=== PATIENT | male | born 1935 | race Caucasian/White ===

== ENCOUNTER 2017-12-27 09:48 | Inpatient (IN) | payer MEDICARE, BC ==
[~2017-12-27] VITALS: Ht 182.9 cm; Wt 90.0 kg
[~2017-12-27 09:48] MED LIST: ASPI81 PO; ERYT400T4 PO; EZET10 PO; PRED50TA PO; ROSU40 PO
[2017-12-27 09:58] VITALS: BP 184/74; PULSE 97; RESP 18; O2SAT 98
--- NOTE | 2017-12-27 10:29 | PD ---
HPI Chief Complaint: Neuro Symptoms/ Deficits Time Seen by Provider: 09:58 Travel History International Travel<30 days: No Contact w/Intl Traveler<30days: No Traveled to known affect area: No History of Present Illness HPI The patient is 82-year-old male who presents to the emergency department via EMS for left-sided weakness. The patient states he awakened Wednesday morning with left-sided weakness, noticed that his left arm is weak and also noted weakness of the left lower extremity. The patient states he felt like the left side of his body was numb at that time. However, the patient notes the left leg is gotten significantly weaker and he is now unable to bear weight or ambulate on the left lower extremity. The patient does live at home, does not follow with a primary physician. The patient does have a remote history of coronary artery disease with previous CABG as well as hyperlipidemia, however, takes no current medications. Symptoms are moderate, started on Wednesday, there are no current alleviating factors. He denies any difficulty with speech or swallowing. He denies any associated chest pain, shortness breath, nausea, vomiting, or abdominal pain. PFSH Past Medical History Blood Disorders: No Heart Rhythm Problems: No Cancer: Yes (SKIN CA) Cardiovascular Problems: Yes High Cholesterol: Yes Chemotherapy: No Chest Pain: Yes Congestive Heart Failure: No Diabetes: Yes (BORDERLINE DIABETIC) Patient Takes Glucophage: No Diminished Hearing: No Endocrine: Yes Gastrointestinal Disorders: Yes (GI BLEED 03/2010) Genitourinary: No Hypertension: Yes Immune Disorder: No Implanted Vascular Access Dvce: Yes Musculoskeletal: No Neurologic: Yes Psychiatric: No Respiratory: Yes Immunizations Current: No Myocardial Infarction: No Radiation Therapy: No Ulcer: Yes Past Surgical History Abdominal Surgery: Yes (STOMACH ULCER CAUTERIZATION) AICD: No Cardiac Surgery: Yes (, TRIPLE BYPASS 2005) Ear Surgery: No Endocrine Surgery: No Eye Surgery: No Genitourinary Surgery: No Gynecologic Surgery: No Joint Replacement: No Neurologic Surgery: No Oral Surgery: No Pacemaker: No Thoracic Surgery: No Other Surgery: Yes (SKIN CA REMOVED.) Social History Alcohol Use: No (2 YEARS SOBER) Tobacco Use: Yes (1 PPD) Substance Use: No Allergies-Medications (Allergen,Severity, Reaction): Coded Allergies: No Known Allergies (Verified Adverse Reaction, Unknown, 12/27/17) Reported Meds & Prescriptions Reported Meds & Active Scripts Active No Active Prescriptions or Reported Medications Review of Systems Except as stated in HPI: all other systems reviewed are Neg HENT: No: Headaches, Lightheadedness Cardiovascular: No: Chest Pain or Discomfort Respiratory: No: Shortness of Breath Gastrointestinal: No: Nausea, Vomiting, Abdominal Pain Musculoskeletal: Positive: Weakness, No: Pain Neurologic: Positive: Weakness, Focal Abnormalities, Ataxia, Paresthesia, Sensory Disturbance, No: Headache, Change in Mentation, Slurred Speech Physical Exam Narrative GENERAL: Awake, alert, pleasant 82-year-old male who appears his stated age and is in no acute respiratory distress. SKIN: Focused skin assessment warm/dry. HEAD: Atraumatic. Normocephalic. EYES: Pupils equal and round. No scleral icterus. No injection or drainage. ENT: No nasal bleeding or discharge. Mucous membranes pink and moist. NECK: Trachea midline. No JVD. CARDIOVASCULAR: Regular, tachycardic with a heart rate of 100. RESPIRATORY: No accessory muscle use. Clear to auscultation. Breath sounds equal bilaterally. GASTROINTESTINAL: Abdomen soft, non-tender, nondistended. Hepatic and splenic margins not palpable. MUSCULOSKELETAL: No obvious deformities. No clubbing. No cyanosis. No edema. NEUROLOGICAL: Awake and alert. No obvious cranial nerve deficits. Mild drift to the left upper extremity and left lower extremity noted, however, does not fall to the bed. Decreased strength with extension of the left upper extremity as well as brush painter strength on the left. Decreased strength with flexion and extension of the left knee against resistance. Sensation is symmetric on the face, arms, legs bilaterally. Finger to nose is normal. Heel to branham normal. PSYCHIATRIC: Appropriate mood and affect; insight and judgment normal. Data Data Last Documented VS Vital Signs Date Time Temp Pulse Resp B/P (MAP) Pulse Ox O2 Delivery O2 Flow Rate FiO2 12/27/17 13:31 85 17 171/75 (107) 98 Nasal Cannula 1.00 Orders Orders Electrocardiogram (12/27/17 10:19) Prothrombin Time / Inr (Pt) (12/27/17 10:19) Act Partial Throm Time (Ptt) (12/27/17 10:19) Complete Blood Count With Diff (12/27/17 10:19) Comprehensive Metabolic Panel (12/27/17 10:19) Creatine Kinase (Cpk) (6/25/18 10:19) Troponin I (12/27/17 10:19) Ct Brain W/O Iv Contrast(Rout) (12/27/17 10:19) Chest, Single Ap (12/27/17 10:19) Ecg Monitoring (12/27/17 10:19) Iv Access Insert/Monitor (12/27/17 10:19) Oximetry (12/27/17 10:19) Sodium Chloride 0.9% Flush (Ns Flush) (12/27/17 10:30) Aspirin Chew (Aspirin Chew) (12/27/17 13:15) Admit Order (Ed Use Only) (12/27/17 13:42) Labs Laboratory Tests Test 12/27/17 10:23 White Blood Count 13.7 TH/MM3 Red Blood Count 4.28 MIL/MM3 Hemoglobin 12.2 GM/DL Hematocrit 36.5 % Mean Corpuscular Volume 85.2 FL Mean Corpuscular Hemoglobin 28.4 PG Mean Corpuscular Hemoglobin Concent 33.3 % Red Cell Distribution Width 18.6 % Platelet Count 323 TH/MM3 Mean Platelet Volume 9.7 FL Neutrophils (%) (Auto) 80.5 % Lymphocytes (%) (Auto) 12.4 % Monocytes (%) (Auto) 4.6 % Eosinophils (%) (Auto) 0.7 % Basophils (%) (Auto) 1.8 % Neutrophils # (Auto) 11.0 TH/MM3 Lymphocytes # (Auto) 1.7 TH/MM3 Monocytes # (Auto) 0.6 TH/MM3 Eosinophils # (Auto) 0.1 TH/MM3 Basophils # (Auto) 0.2 TH/MM3 CBC Comment AUTO DIFF Differential Comment AUTO DIFF CONFIRMED Platelet Estimate NORMAL Platelet Morphology Comment ENLARGED Ovalocytes 2+ Keratocytes OCC Prothrombin Time 10.7 SEC Prothromb Time International Ratio 1.1 RATIO Activated Partial Thromboplast Time 24.7 SEC Blood Urea Nitrogen 13 MG/DL Creatinine 1.21 MG/DL Random Glucose 191 MG/DL Total Protein 7.5 GM/DL Albumin 4.2 GM/DL Calcium Level 9.1 MG/DL Alkaline Phosphatase 90 U/L Aspartate Amino Transf (AST/SGOT) 13 U/L Alanine Aminotransferase (ALT/SGPT) 13 U/L Total Bilirubin 0.8 MG/DL Sodium Level 135 MEQ/L Potassium Level 3.8 MEQ/L Chloride Level 101 MEQ/L Carbon Dioxide Level 22.1 MEQ/L Anion Gap 12 MEQ/L Estimat Glomerular Filtration Rate 58 ML/MIN Total Creatine Kinase 66 U/L Troponin I LESS THAN 0.02 NG/ML [facility] Medical Decision Making Medical Screen Exam Complete: Yes Emergency Medical Condition: Yes Medical Record Reviewed: Yes Interpretation(s) EKG reveals normal sinus rhythm with a rate of 95. Nonspecific ST and T-wave changes. Laboratory Tests Test 12/27/17 10:23 White Blood Count 13.7 TH/MM3 Red Blood Count 4.28 MIL/MM3 Hemoglobin 12.2 GM/DL Hematocrit 36.5 % Mean Corpuscular Volume 85.2 FL Mean Corpuscular Hemoglobin 28.4 PG Mean Corpuscular Hemoglobin Concent 33.3 % Red Cell Distribution Width 18.6 % Platelet Count 323 TH/MM3 Mean Platelet Volume 9.7 FL Neutrophils (%) (Auto) 80.5 % Lymphocytes (%) (Auto) 12.4 % Monocytes (%) (Auto) 4.6 % Eosinophils (%) (Auto) 0.7 % Basophils (%) (Auto) 1.8 % Neutrophils # (Auto) 11.0 TH/MM3 Lymphocytes # (Auto) 1.7 TH/MM3 Monocytes # (Auto) 0.6 TH/MM3 Eosinophils # (Auto) 0.1 TH/MM3 Basophils # (Auto) 0.2 TH/MM3 CBC Comment AUTO DIFF Differential Comment AUTO DIFF CONFIRMED Platelet Estimate NORMAL Platelet Morphology Comment ENLARGED Ovalocytes 2+ Keratocytes OCC Prothrombin Time 10.7 SEC Prothromb Time International Ratio 1.1 RATIO Activated Partial Thromboplast Time 24.7 SEC Blood Urea Nitrogen 13 MG/DL Creatinine 1.21 MG/DL Random Glucose 191 MG/DL Total Protein 7.5 GM/DL Albumin 4.2 GM/DL Calcium Level 9.1 MG/DL Alkaline Phosphatase 90 U/L Aspartate Amino Transf (AST/SGOT) 13 U/L Alanine Aminotransferase (ALT/SGPT) 13 U/L Total Bilirubin 0.8 MG/DL Sodium Level 135 MEQ/L Potassium Level 3.8 MEQ/L Chloride Level 101 MEQ/L Carbon Dioxide Level 22.1 MEQ/L Anion Gap 12 MEQ/L Estimat Glomerular Filtration Rate 58 ML/MIN Total Creatine Kinase 66 U/L Troponin I LESS THAN 0.02 NG/ML Last Impressions Head CT 12/27/17 1019 Signed Impressions: CONCLUSION: 1. No acute intracranial abnormalities. 2. Chronic white matter ischemic changes. Chest X-Ray 12/27/17 1019 Signed Impressions: CONCLUSION: No acute disease Differential Diagnosis Differential diagnosis includes CVA, TIA, intracranial hemorrhage, hypertensive urgency, hypertensive emergency, intracranial tumor, peripheral neuropathy. Narrative Course IV was established, labs are drawn and sent, and the patient was placed on cardiac telemetry monitoring and continuous pulse oximetry monitoring. EKG was ordered and interpreted. CT of the brain was obtained. Chest x-ray was obtained. Chest x-ray is unremarkable. Laboratory evaluation is unremarkable. CT the brain reveals no acute intracranial hemorrhage. The patient was administered aspirin 162 mg orally. The patient has left-sided weakness with drift to left arm and left leg, most likely secondary to right MCA infarct, the patient may benefit from ultrasound of the carotids, echocardiogram, MRI, and neurology consultation. The on-call medical service was paged for admission. Physician Communication Physician Communication The on-call medical service was paged for admission. I discussed the patient with Dr. Holt. who agrees with admission. Diagnosis Primary Impression: CVA (cerebral vascular accident) Qualified Codes: I63.9 - Cerebral infarction, unspecified Admitting Information Admitting Physician Requests: Admit Scripts No Active Prescriptions or Reported Meds Condition: Stable Bridger Maciel MD Dec 27, 2017 10:29
[2017-12-27] MEDS ORDERED: SODIUM CHLORIDE 0.9% FLUSH 10 ML FLUSH IVF PRN (10:30)
[2017-12-27 10:32] LABS: BASOPHIL # 0.2 TH/MM3 (0-0.2); BASOPHIL % 1.8 % (0.0-2.0); EOSINOPHIL # 0.1 TH/MM3 (0-0.4); EOSINOPHIL % 0.7 % (0.0-4.0); HEMATOCRIT 36.5 % (39.0-51.0); HEMOGLOBIN 12.2 GM/DL (13.0-17.0); LYMPH % 12.4 % (9.0-44.0); LYMPHOCYTE # 1.7 TH/MM3 (1.0-4.8); MEAN CELL VOLUME 85.2 FL (80.0-100.0); MEAN CORPUSCULAR HEMOGLOBIN 28.4 PG (27.0-34.0); MEAN CORPUSCULAR HGB CONC 33.3 % (32.0-36.0); MEAN PLATELET VOLUME 9.7 FL (7.0-11.0); MONO % 4.6 % (0.0-8.0); MONOCYTE # 0.6 TH/MM3 (0-0.9); NEUT % 80.5 % (16.0-70.0); PLATELET COUNT 323 TH/MM3 (150-450); RED BLOOD COUNT 4.28 MIL/MM3 (4.50-5.90); RED CELL DISTRIBUTION WIDTH 18.6 % (11.6-17.2); WHITE BLOOD COUNT 13.7 TH/MM3 (4.0-11.0)
[2017-12-27 10:38] VITALS: O2SAT 98
[2017-12-27 10:44] LABS: INTERNATIONAL NORMALIZED RATIO 1.1 RATIO; PROTHROMBIN TIME - PATIENT 10.7 SEC (9.8-11.6)
[2017-12-27 10:48] LABS: ALBUMIN 4.2 GM/DL (3.4-5.0); AST (GOT) 13 U/L (15-37); BICARBONATE 22.1 MEQ/L (21.0-32.0); BLOOD UREA NITROGEN 13 MG/DL (7-18); CALCIUM 9.1 MG/DL (8.5-10.1); CHLORIDE 101 MEQ/L (98-107); CREATININE 1.21 MG/DL (0.60-1.30); GLOMERULAR FILTRATION RATE 58 ML/MIN (>89); GLUCOSE,RANDOM 191 MG/DL (74-106); SODIUM (NA) 135 MEQ/L (136-145)
[2017-12-27 10:49] LABS: ALT (GPT) 13 U/L (12-78)
[2017-12-27 10:53] LABS: ALKALINE PHOSPHATASE 90 U/L (45-117); TOTAL BILIRUBIN ADULT 0.8 MG/DL (0.2-1.0); TOTAL PROTEIN 7.5 GM/DL (6.4-8.2); TROPONIN I LESS THAN 0.02 NG/ML (0.02-0.05)
[2017-12-27 11:04] LABS: KERATOCYTES OCC (NORMAL); OVALOCYTES 2+ (NORMAL)
--- NOTE | 2017-12-27 11:18 | RADRPT ---
EXAM DATE: 12/27/2017 10:57 AM EDT AGE/SEX: 82 years / Male INDICATIONS: Syncope. Possible stroke. CLINICAL DATA: This is the patient's initial encounter. Patient reports that signs and symptoms have been present for 1 day and indicates a pain score of 0/10. MEDICAL/SURGICAL HISTORY: Hypertension. CABG. COMPARISON: No prior exams available for comparison. FINDINGS: Focal opacity in the right cardiophrenic angle is likely epicardial fat. The lungs are otherwise symm etrically aerated and grossly clear. No significant effusion suspected. Heart size and pulmonary vasc ularity are normal. There are healed rib and clavicle fractures on the right. Sternotomy wires presen t. CONCLUSION: No acute disease Electronically signed by: Branden Guidry MD 12/27/2017 11:17 AM EDT
--- NOTE | 2017-12-27 12:20 | RADRPT ---
EXAM DATE: 12/27/2017 12:17 PM EDT AGE/SEX: 82 years / Male INDICATIONS: Left sided weakness. CLINICAL DATA: This is the patient's initial encounter. Patient reports that signs and symptoms have been present for 3 days and indicates a pain score of 2/10. MEDICAL/SURGICAL HISTORY: Hypertension. Skin cancer. CABG. RADIATION DOSE: 56.35 CTDI (mGy) COMPARISON: No prior exams available for comparison. TECHNIQUE: CT of the head without contrast. Using automated exposure control and adjustment of the mA and/or kV according to patient size, radiation dose was kept as low as reasonably achievable to ob tain optimal diagnostic quality images. DICOM format image data is available electronically for revi ew and comparison. FINDINGS: Cerebrum: The ventricles are normal for age. No evidence of midline shift, mass lesion, hemorrhage or acute infarction. No extraaxial fluid collections are seen. Posterior Fossa: The cerebellum and brainstem are intact. The 4th ventricle is midline. The cerebe llopontine angle is unremarkable. Extracranial: The visualized portion of the orbits is intact. Skull: The calvaria is intact. No evidence of skull fracture. CONCLUSION: 1. No acute intracranial abnormalities. 2. Chronic white matter ischemic changes. Electronically signed by: Bridger Sandhu MD 12/27/2017 12:19 PM EDT
[2017-12-27] MEDS ORDERED: ASPIRIN 81 MG CHEW TAB CHEW ONE (13:15)
[2017-12-27 13:31] VITALS: BP 171/75; PULSE 85; RESP 17; O2SAT 95; O2SAT 98
[2017-12-27] MEDS ORDERED: SODIUM CHLOR 0.9% 1000 ML INJ 1,000 ML IV SCH (13:51)
[2017-12-27] MEDS ORDERED: GLUCAGON 1 MG/ML VIAL OTHER PRN (14:00)
[2017-12-27] MEDS ORDERED: ENALAPRILAT 1.25 MG/ML VIAL IV PUSH PRN (14:00)
[2017-12-27] MEDS ORDERED: DEXTROSE 50% IN WATER 50 ML VIAL(D50) IV PUSH PRN (14:00)
[2017-12-27 14:03] VITALS: O2SAT 100
--- NOTE | 2017-12-27 14:43 | HHI.HP ---
[facility] No Primary Care Physician Admission Diagnosis CVA, left-sided weakness Diagnoses: (1) CVA (cerebral vascular accident) Chief Complaint: Left-sided weakness Travel History International Travel<30 Days: No Contact w/Intl Traveler <30 Da: No Traveled to Known Affected Are: No History of Present Illness Patient is an 82-year-old male who presented to the emergency department with complaint of left-sided weakness that started 2 days ago. He states that he woke up on Wednesday morning and had difficulty using his left arm and left leg due to weakness. He states that it has worsened over the past couple days and this morning he tried to walk with crutches but fell. He did not hit his head when he fell. There was no loss of consciousness. He feels that the strength has gotten a little better in the left upper extremity, but he still feels that the left arm is uncoordinated. He denies headache or vision changes. Denies chest pain or dyspnea. Past Family Social History Past Medical History Coronary artery disease Hypertension Hyperlipidemia Diabetes mellitus type 2 History of skin cancer Past Surgical History CABG 2005 Reported Medications None Allergies: Coded Allergies: No Known Allergies (Verified Adverse Reaction, Unknown, 12/27/17) Family History Mother had bile duct cancer Father had cerebral hemorrhage Social History The patient has smoked cigarettes 60+ years. Currently cut down to one half pack per day. Quit drinking alcohol 2 years ago. Denies illicit drug use. Physical Exam Vital Signs Vital Signs Date Time Temp Pulse Resp B/P (MAP) Pulse Ox O2 Delivery O2 Flow Rate FiO2 12/27/17 14:03 100 21 12/27/17 13:31 85 17 171/75 (107) 98 Nasal Cannula 1.00 12/27/17 10:38 98 Room Air 12/27/17 09:58 97 18 184/74 (110) 98 Physical Exam GENERAL: Elderly male in no acute distress. HEENT: Normocephalic, atraumatic. Pupils equal, round and reactive. Extraocular movements intact. No scleral icterus. No injection or drainage. Oropharynx is clear. Mucous membranes are moist. CARDIOVASCULAR: Regular rate and rhythm without murmurs, gallops, or rubs. RESPIRATORY: Clear to auscultation. No wheezes, rales, or rhonchi. Breathing is non-labored. GASTROINTESTINAL: Abdomen soft, non-tender, nondistended. EXTREMITIES: No lower extremity edema. No calf tenderness. PSYCH: Alert and oriented x 3. NEURO: Cranial nerves II through XII are grossly intact. Patient has weakness of the left upper extremity and left lower extremity. Strength is 5/5 on the right and 4/5 on the left. Laboratory Laboratory Tests Test 12/27/17 10:23 White Blood Count 13.7 Red Blood Count 4.28 Hemoglobin 12.2 Hematocrit 36.5 Mean Corpuscular Volume 85.2 Mean Corpuscular Hemoglobin 28.4 Mean Corpuscular Hemoglobin Concent 33.3 Red Cell Distribution Width 18.6 Platelet Count 323 Mean Platelet Volume 9.7 Neutrophils (%) (Auto) 80.5 Lymphocytes (%) (Auto) 12.4 Monocytes (%) (Auto) 4.6 Eosinophils (%) (Auto) 0.7 Basophils (%) (Auto) 1.8 Neutrophils # (Auto) 11.0 Lymphocytes # (Auto) 1.7 Monocytes # (Auto) 0.6 Eosinophils # (Auto) 0.1 Basophils # (Auto) 0.2 CBC Comment AUTO DIFF Differential Comment AUTO DIFF CONFIRMED Platelet Estimate NORMAL Platelet Morphology Comment ENLARGED Ovalocytes 2+ Keratocytes OCC Prothrombin Time 10.7 Prothromb Time International Ratio 1.1 Activated Partial Thromboplast Time 24.7 Blood Urea Nitrogen 13 Creatinine 1.21 Random Glucose 191 Total Protein 7.5 Albumin 4.2 Calcium Level 9.1 Alkaline Phosphatase 90 Aspartate Amino Transf (AST/SGOT) 13 Alanine Aminotransferase (ALT/SGPT) 13 Total Bilirubin 0.8 Sodium Level 135 Potassium Level 3.8 Chloride Level 101 Carbon Dioxide Level 22.1 Anion Gap 12 Estimat Glomerular Filtration Rate 58 Total Creatine Kinase 66 Troponin I LESS THAN 0.02 Result Diagram: 12/27/17 1023 12/27/17 1023 Imaging Last Impressions Head CT 12/27/17 1019 Signed Impressions: CONCLUSION: 1. No acute intracranial abnormalities. 2. Chronic white matter ischemic changes. Chest X-Ray 12/27/17 1019 Signed Impressions: CONCLUSION: No acute disease Caprini VTE Risk Assessment Caprini VTE Risk Assessment: Mod/High Risk (score >= 2) Caprini Risk Assessment Model Point Value = 1 Point Value = 2 Point Value = 3 Point Value = 5 Age 41-60 Minor surgery BMI > 25 kg/m2 Swollen legs Varicose veins or History of unexplained or recurrent spontaneous Oral contraceptives or hormone replacement Sepsis (< 1 month) Serious lung disease, including pneumonia (< 1 month) Abnormal pulmonary function Acute myocardial infarction Congestive heart failure (< 1 month) History of inflammatory bowel disease Medical patient at bed rest Age 61-74 Arthroscopic surgery Major open surgery (> 45 min) Laparoscopic surgery (> 45 min) Malignancy Confined to bed (> 72 hours) Immobilizing plaster cast Central venous access Age >= 75 History of VTE Family history of VTE Factor V Leiden Prothrombin [id number] Lupus anticoagulant Anticardiolipin antibodies Elevated serum homocysteine Heparin-induced thrombocytopenia Other congenital or acquired thrombophilia Stroke (< 1 month) Elective arthroplasty Hip, pelvis, or leg fracture Acute spinal cord injury (< 1 month) Prophylaxis Regimen Total Risk Factor Score Risk Level Prophylaxis Regimen 0-1 Low Early ambulation 2 Moderate Order ONE of the following: *Sequential Compression Device (SCD) *Heparin 5000 units SQ BID 3-4 Higher Order ONE of the following medications: *Heparin 5000 units SQ TID *Enoxaparin/Lovenox 40 mg SQ daily (WT < 150 kg, CrCl > 30 mL/min) *Enoxaparin/Lovenox 30 mg SQ daily (WT < 150 kg, CrCl > 10-29 mL/min) *Enoxaparin/Lovenox 30 mg SQ BID (WT < 150 kg, CrCl > 30 mL/min) AND/OR *Sequential Compression Device (SCD) 5 or more Highest Order ONE of the following medications: *Heparin 5000 units SQ TID (Preferred with Epidurals) *Enoxaparin/Lovenox 40 mg SQ daily (WT < 150 kg, CrCl > 30 mL/min) *Enoxaparin/Lovenox 30 mg SQ daily (WT < 150 kg, CrCl > 10-29 mL/min) *Enoxaparin/Lovenox 30 mg SQ BID (WT < 150 kg, CrCl > 30 mL/min) AND *Sequential Compression Device (SCD) Assessment and Plan Assessment and Plan 1. CVA: CT of the head is negative. Check MRI/MRA of the brain. Carotid artery ultrasound and 2D echocardiogram have been ordered. Consult neurology. PT/OT/ST. Allow permissive hypertension. Start statin. Continue aspirin. 2. Coronary artery disease: Status post CABG 12 years ago. Patient denies chest pain. He has not been taking any medications for the past few years. Start statin. Monitor on telemetry. 3. Hyperglycemia: Patient has reported history of diet-controlled diabetes, but has not had his blood sugar checked in many years. Monitor Accu-Cheks and cover with sliding scale insulin. Hemoglobin A1c is pending. 4. Leukocytosis: Likely stress reaction. No other signs of infection at this time. 5. DVT prophylaxis: Nelly, PRIYANKA herbert. Problem Qualifiers (1) CVA (cerebral vascular accident): Qualified Codes: I63.9 - Cerebral infarction, unspecified John Holt MD Dec 27, 2017 14:42
[2017-12-27 15:58] LABS: HEMOGLOBIN A1C 5.8 % (4.3-6.0)
[2017-12-27 16:43] VITALS: BP 171/72; PULSE 77; RESP 18; TEMP 98.6; O2SAT 99
[2017-12-27] MEDS: ASPIRIN EC 325 MG TABEC PO SCH (17:15)
[2017-12-27] MEDS: INSULIN ASPART SUPPLEMENTAL SCALE SQ SCH ×2 (17:30→21:00)
--- NOTE | 2017-12-27 17:57 | MB ---
cc: Adiel Joy MD DATE: 12/27/2017 HISTORY OF PRESENT ILLNESS: This is an 82-year-old right-handed man with a history of hypertension, hypercholesterolemia, [place], CABG in 2004, peptic ulcer disease, . He does not take an aspirin or really any medications. On Wednesday, he woke up, he was clumsy in his left arm and weak in his left leg. No chest pain, palpitations or headache. REVIEW OF SYSTEMS: He denies any diabetes, although his sugar evidently was 190 when he came in. He denied any history of AFib, Coumadin, renal, hepatic, pulmonary disease, although he is a long time smoker, thyroid disease, lupus, cancer, seizure, prior stroke. No vision loss in the right eye. No facial droop. SOCIAL HISTORY: He is a smoker and I have asked him to quit. Not a drinker, lives by himself. FAMILY HISTORY: Negative for cancer, seizure, stroke. ALLERGIES: NO KNOWN DRUG ALLERGIES. MEDICATIONS: He does not take any medications, including an aspirin. PHYSICAL EXAMINATION: NECK: There were no carotid bruits. HEART: Regular rhythm. I did not detect a murmur. NEUROLOGIC: Pupils are equal. Visual lion are full. Extraocular movements intact, without nystagmus. Face is symmetric with normal sensation. Tongue was midline. EKG showed sinus rhythm. There is a positive left drift. He had normal strength in upper and lower extremities bilaterally except the left lower extremity, iliopsoas was about a 5-/5. Toes were equivocal on the left, downgoing on the right. DTRs are trace throughout. Pinprick is intact throughout bilaterally upper and lower extremities and face. He has ataxia on left [id number], not on the right. Speech is fluent. He is not aphasic. LABORATORY DATA: White count is 13.7, otherwise CBC is generally unremarkable. Basic metabolic profile was normal. Glucose 191. LFTs normal. Troponin negative. Albumin 4.2. Coags normal. IMAGING: CAT scan of the brain read as negative. Chest x-ray, no acute disease. IMPRESSION: Right infarct, some ataxia, probably a deeper infarct, although pontine infarct could not be ruled out. PLAN: We will check an MRI of the brain, MRA capitan grande band of Rodriguez and neck. This has been going on 48 hours, been fairly stable. We will start him on aspirin 325 a day, some IV hydration, do a stroke workup. MD JUAN A Haddad/ALESSIA , 05:19 PM , 05:56 PM
[2017-12-27] MEDS ORDERED: GADODIAMIDE PF 287 MG/ML 20 ML VIAL (for RAD MRI) IV PUSH ONE (18:31)
--- NOTE | 2017-12-27 18:45 | RADRPT ---
EXAM DATE: 12/27/2017 6:24 PM EDT AGE/SEX: 82 years / Male INDICATIONS: . Left sided numbness. CLINICAL DATA: This is the patient's initial encounter. Patient reports that signs and symptoms have been present for 2 days and indicates a pain score of 0/10. MEDICAL/SURGICAL HISTORY: None. CABG. COMPARISON: No prior exams available for comparison. TECHNIQUE: 3D [id number] MRA was performed. Source images, multiplanar STS MIP, and 3D volum e MIP reconstructions were reviewed. FINDINGS: Anterior circulation: There is mild irregularity of the internal carotid arteries particularly within the cavernous segments, likely representing atherosclerotic disease. No high-grade stenosis is ident ified. A1 segments are symmetric. More distal anterior cerebral arteries are symmetric. There is irre gular luminal narrowing in the proximal left middle cerebral artery likely related to atherosclerotic disease given the appearance. The more peripheral middle cerebral artery branches demonstrate symmet samir flow related enhancement. Posterior circulation: The visualized vertebral arteries are codominant. Basilar artery demonstrates no acute abnormality. There is abrupt cut off of flow related enhancement in the proximal right poste rior cerebral artery adjacent to the cerebral peduncle. Left posterior cerebral artery branches withi n normal limits. CONCLUSION: 1. There is a high-grade stenosis suspected in the right proximal posterior cerebral artery. 2. Moderate luminal irregularity in the proximal left middle cerebral artery most likely related to atherosclerotic disease. There is also likely atherosclerotic change with mild luminal narrowing invo lving the intracranial internal carotid arteries. Electronically signed by: Branden Hickman MD 12/27/2017 6:44 PM EDT
--- NOTE | 2017-12-27 18:59 | RADRPT ---
EXAM DATE: 12/27/2017 6:29 PM EDT AGE/SEX: 82 years / Male INDICATIONS: CVA. Left sided numbness. CLINICAL DATA: This is the patient's initial encounter. Patient reports that signs and symptoms have been present for 2 days and indicates a pain score of 0/10. MEDICAL/SURGICAL HISTORY: None. CABG. COMPARISON: [facility] – [place], CT BRAIN W/O CONTRAST, 12/27/2017. . TECHNIQUE: Multiplanar, multisequence examination of the brain was performed without and with 20 ml O mniscan (gadodiamide) contrast as a single exam dose. FINDINGS: Cerebrum: There is mild generalized atrophy with ventricular size within normal limits given the degr ee of atrophy. No midline shift, mass lesion, or hemorrhage. There is a focal area of restricted dif fusion associated with increased FLAIR signal in the right periventricular white matter. No extraaxia l fluid collections are seen. The pituitary gland and suprasellar cistern are normal in configuratio n. White Matter: There is moderate periventricular and subcortical white matter signal change bilateral ly. Posterior Fossa: The cerebellum and brainstem demonstrate no acute abnormality. The 4th ventricle is midline. The cerebellopontine angle is within normal limits. The cerebellar tonsils are normal in p osition. Diffusion Imaging: No areas of restricted diffusion are seen. Extracranial: The visualized sinuses are clear. CONCLUSION: 1. There is a focal area of restricted diffusion representing recent ischemia in the right frontal p eriventricular white matter. 2. Chronic findings include generalized atrophy and moderate severity periventricular white matter s ignal change characteristic of chronic microvascular ischemia. Electronically signed by: Branden Hickman MD 12/27/2017 6:57 PM EDT
[2017-12-27 19:28] LABS: CHOLESTEROL/ HDL RATIO 8.94 RATIO; FOLATE 4.9 NG/ML (3.1-17.5); FREE T4 1.08 NG/DL (0.76-1.46); HDL CHOLESTEROL 22.7 MG/DL (40.0-60.0)
[2017-12-27] MEDS ORDERED: ATORVASTATIN 10 MG TAB PO SCH (21:00)
[2017-12-27 21:45] VITALS: PULSE 72
[2017-12-27] MEDS: SODIUM CHLOR 0.9% 1000 ML INJ 1,000 ML IV SCH (22:03)
--- NOTE | 2017-12-27 22:37 | EKG ---
Date Performed: 12/27/2017 Time Performed: 10:02:17 PTAGE: 82 years EKG: Sinus rhythm NONSPECIFIC ST & T-WAVE ABNORMALITY BORDERLINE ECG Compared to PREVIOUS TRACING , ST/T wave changes are now noted but non-specific DOCTOR: Bill Anton Interpretating Date/Time 12/27/2017 22:35:25
--- NOTE | 2017-12-27 23:15 | RADRPT ---
EXAM DATE: 12/27/2017 6:55 PM EDT AGE/SEX: 82 years / Male INDICATIONS: Stroke. CLINICAL DATA: This is the patient's initial encounter. Patient reports that signs and symptoms have been present for 2 days and indicates a pain score of 0/10. MEDICAL/SURGICAL HISTORY: None. CABG. COMPARISON: No prior exams available for comparison. TECHNIQUE: 20 ml Omniscan (gadodiamide) contrast infused MRA (single exam dose) of the extracranial circulation was performed using a neurovascular coil. Postprocessing was performed, including rotat ing sub-volume maximum intensity projections of each carotid artery, rotating full-volume maximum int ensity projections of both carotid arteries, sagittal and coronal sliding thin-slab reformations of e ach carotid artery, and left oblique sliding thin-slab reformation through the aortic arch to include the origin of the arch branch vessels. FINDINGS: Aortic Arch : There is a three-vessel origin of the great vessels from the aorta. No evidence of o stial narrowing. Right Carotid : The common carotid artery demonstrates mild luminal irregularity likely related to a therosclerotic disease. However, there is no significant stenosis. Proximal aspect of the internal ca rotid artery demonstrates mild luminal irregularity likely related to atherosclerotic disease but no significant stenosis is present. External carotid artery is within normal limits. Left Carotid : The common carotid artery demonstrates no significant luminal narrowing. In the carot id bulb and proximal internal carotid artery there is focal narrowing measuring at least 60%. More di stally there is no significant narrowing present. Vertebrals : Vertebral arteries are codominant. There is likely a focal high-grade stenosis at the o rigin of the right vertebral artery. More distal vertebral arteries have a normal appearance. CONCLUSION: 1. Focal stenosis in the carotid bulb and proximal internal carotid artery on the left with at least 60% stenosis. Consider carotid CTA for more accurate assessment. 2. Mild atherosclerotic disease in the right carotid bulb but no significant stenosis is present. 3. Suspected focal high-grade narrowing at the origin of the right vertebral artery. Percent stenosis is calculated using the diameter of the stenotic region over the diameter of the nor mal distal internal carotid artery Electronically signed by: Branden Hickman MD 12/27/2017 11:14 PM EDT
[2017-12-28] VITALS (10 sets, daily range): BP systolic 122–164; BP diastolic 59–74; PULSE 59–100; RESP 16–19; TEMP 96.2–98.6; O2SAT 96–100
[2017-12-28] MEDS: SODIUM CHLOR 0.9% 1000 ML INJ 1,000 ML IV SCH ×4 (06:34→18:41)
--- NOTE | 2017-12-28 07:52 | HHI.PR ---
Subjective Remarks sr Objective Vital Signs Date Time Temp Pulse Resp B/P (MAP) Pulse Ox O2 Delivery O2 Flow Rate FiO2 12/28/17 06:25 97.6 65 17 151/69 (96) 100 12/28/17 01:00 96.2 59 19 143/74 (97) 99 12/27/17 21:45 72 12/27/17 16:43 98.6 77 18 171/72 (105) 99 12/27/17 16:40 12/27/17 14:03 100 21 12/27/17 13:31 85 17 171/75 (107) 98 Nasal Cannula 1.00 12/27/17 10:38 98 Room Air 12/27/17 09:58 97 18 184/74 (110) 98 I/O 12/27/17 12/27/17 12/27/17 12/28/17 12/28/17 12/28/17 07:00 15:00 23:00 07:00 15:00 23:00 Intake Total 555 ml Output Total 250 ml Balance 305 ml Intake IV Total 555 ml Output Urine Total 250 ml Result Diagram: 12/27/17 1023 12/27/17 1023 Objective Remarks awake alert 5/5 lue lle still ataxic lue Assessment and Plan Assessment and Plan imp sr mra left mca dz and left ica about 60% check cta r deep lacunar type cva fu echo holter asa and statin ldl inc Adiel Izquierdo MD Dec 28, 2017 07:52
[2017-12-28] MEDS: ASPIRIN EC 325 MG TABEC PO SCH (08:26)
[2017-12-28] MEDS: INSULIN ASPART SUPPLEMENTAL SCALE SQ SCH ×4 (08:26→21:00)
[2017-12-28] MEDS ORDERED: ASPIRIN 81 MG CHEW TAB PO SCH (09:00)
--- NOTE | 2017-12-28 11:02 | HHI.PR ---
Subjective Remarks Patient states that he feels weak. No headaches or visual changes. Reports no numbness. Has been laying in bed overnight. Ready to go down for further testing. Objective Vitals Vital Signs Date Time Temp Pulse Resp B/P (MAP) Pulse Ox O2 Delivery O2 Flow Rate FiO2 12/28/17 08:00 98.2 73 18 164/70 (101) 98 12/28/17 06:25 97.6 65 17 151/69 (96) 100 12/28/17 01:00 96.2 59 19 143/74 (97) 99 12/27/17 21:45 72 12/27/17 16:43 98.6 77 18 171/72 (105) 99 12/27/17 16:40 12/27/17 14:03 100 21 12/27/17 13:31 85 17 171/75 (107) 98 Nasal Cannula 1.00 I/O 12/27/17 12/27/17 12/27/17 12/28/17 12/28/17 12/28/17 07:00 15:00 23:00 07:00 15:00 23:00 Intake Total 555 ml Output Total 250 ml Balance 305 ml Intake IV Total 555 ml Output Urine Total 250 ml Result Diagram: 12/27/17 1023 12/27/17 1023 Imaging Last Impressions Neck Magnetic Resonance Angiography 12/27/17 1714 Signed Impressions: CONCLUSION: 1. Focal stenosis in the carotid bulb and proximal internal carotid artery on the left with at least 60% stenosis. Consider carotid CTA for more accurate ass essment. 2. Mild atherosclerotic disease in the right carotid bulb but no significant s tenosis is present. 3. Suspected focal high-grade narrowing at the origin of the right vertebral a rtery. Percent stenosis is calculated using the diameter of the stenotic region over t he diameter of the normal distal internal carotid artery Brain MRI 12/27/17 1714 Signed Impressions: CONCLUSION: 1. There is a focal area of restricted diffusion representing recent ischemia in the right frontal periventricular white matter. 2. Chronic findings include generalized atrophy and moderate severity perivent ricular white matter signal change characteristic of chronic microvascular isch emia. Head CT 12/27/17 1019 Signed Impressions: CONCLUSION: 1. No acute intracranial abnormalities. 2. Chronic white matter ischemic changes. Chest X-Ray 12/27/17 1019 Signed Impressions: CONCLUSION: No acute disease Head Magnetic Resonance Angiography 12/27/17 0000 Signed Impressions: CONCLUSION: 1. There is a high-grade stenosis suspected in the right proximal posterior ce rebral artery. 2. Moderate luminal irregularity in the proximal left middle cerebral artery m ost likely related to atherosclerotic disease. There is also likely atheroscler otic change with mild luminal narrowing involving the intracranial internal car otid arteries. Objective Remarks GENERAL: This is a well-nourished, well-developed patient, in no apparent distress. CARDIOVASCULAR: Regular rate and rhythm RESPIRATORY: Clear to auscultation. Breath sounds equal bilaterally. No wheezes , rales, or rhonchi. GASTROINTESTINAL: Abdomen soft, non-tender, nondistended. Normal active bowel sounds MUSCULOSKELETAL: Extremities without clubbing, cyanosis, or edema. NEURO: Alert & Oriented x4 to person, place, time, situation. Left upper extremity and lower extremity show 4.5 out of 5 motor strength, sensation intact A/P Problem List: (1) CVA (cerebral vascular accident) ICD Code: I63.9 - Cerebral infarction, unspecified Status: Acute Assessment and Plan 1. Acute CVA: CT of the head is negative. MRI of the brain revealed acute right frontal acute CVA, MRA of the brain show right posterior cerebral artery stenosis along with left carotid artery stenosis about 60% and recommended CTA of the neck for further evaluation. Carotid artery ultrasound and 2D echocardiogram have been ordered and currently pending. Appreciate neurology recommendations. PT/OT/ST. Allow permissive hypertension. Start statin. Continue aspirin. 2. Coronary artery disease: Status post CABG 12 years ago. Patient denies chest pain. He has not been taking any medications for the past few years. Start statin. Monitor on telemetry. Continue with aspirin 3. Hyperglycemia on presentation: Patient has reported history of diet- controlled diabetes, but has not had his blood sugar checked in many years. Monitor Accu-Cheks and cover with sliding scale insulin. Hemoglobin A1c is 5.6 and relatively well-controlled 4. Leukocytosis: Likely stress reaction. No other signs of infection at this time. 5. DVT prophylaxis: PRIYANKA Vilelgas. Discharge Planning Likely will need custodial facility placement Problem Qualifiers (1) CVA (cerebral vascular accident): Qualified Codes: I63.531 - Cerebral infarction due to unspecified occlusion or stenosis of right posterior cerebral artery Jessica Grant MD Dec 28, 2017 11:02
[2017-12-28 11:11] LABS: CHOLESTEROL/ HDL RATIO 7.84 RATIO; HDL CHOLESTEROL 23.2 MG/DL (40.0-60.0)
--- NOTE | 2017-12-28 11:33 | RADRPT ---
EXAM DATE: 12/28/2017 11:21 AM EDT AGE/SEX: 82 years / Male INDICATIONS: Left side weakness. CLINICAL DATA: This is the patient's initial encounter. Patient reports that signs and symptoms have been present for 1 day and indicates a pain score of 0/10. MEDICAL/SURGICAL HISTORY: Hypertension. Diabetes. Bypass, hypertension, diabetes and skin Ca. CAB G. RADIATION DOSE: 27.47 CTDI (mGy) COMPARISON: No prior exams available for comparison. TECHNIQUE: Volumetric scanning was performed using a multi-row detector CT scanner during bolus infu mya of 70 ml Omnipaque 350 (iohexol) nonionic water-soluble contrast as a single exam dose. The d scott was post processed with a variety of visualization algorithms including full volume maximum inten sity projection, multi-planar sliding thin slab reformation, curved planar reformation, and surface r endering techniques. Using automated exposure control and adjustment of the mA and/or kV according t o patient size, radiation dose was kept as low as reasonably achievable to obtain optimal diagnostic quality images. DICOM format image data is available electronically for review and comparison. FINDINGS: There is excellent visualization of the major intracranial arteries out to the second-order branch ve ssels. Atherosclerotic irregularity is identified in the left A1 segment and to a good portion of the left MCA territory up to the bifurcation. The most distal stenosis in the MCA territory could be bowen w-limiting. Intracranial vessels are otherwise patent without aneurysmal disease. CONCLUSION: 1. Significant atherosclerotic irregularity involving the left A1 and left M1 and M2 segments. 2. Otherwise, intracranial vessels are all patent without embolus or aneurysmal disease. Electronically signed by: David Zimmerman MD 12/28/2017 11:32 AM EDT
--- NOTE | 2017-12-28 13:48 | RADRPT ---
EXAM DATE: 12/28/2017 12:04 PM EDT AGE/SEX: 82 years / Male INDICATIONS: Left side weakness. CLINICAL DATA: This is the patient's initial encounter. Patient reports that signs and symptoms have been present for 1 day and indicates a pain score of 0/10. MEDICAL/SURGICAL HISTORY: Diabetes. Hypertension. Skin Ca. CABG. RADIATION DOSE: 27.47 CTDI (mGy) COMPARISON: [facility], MRA CAROTIDS W CONTRAST, 12/27/2017. . TECHNIQUE: Volumetric scanning was performed using a multirow detector CT scanner during bolus infus ion of 70 ml Omnipaque 350 (iohexol) nonionic water-soluble contrast as a single exam dose. The da ta was postprocessed with a variety of visualization algorithms including full-volume maximum intensi ty projection, multiplanar sliding thin-slab reformation, curved-planar reformation, and surface-rend ering techniques. Using automated exposure control and adjustment of the mA and/or kV according to p atient size, radiation dose was kept as low as reasonably achievable to obtain optimal diagnostic aric lity images. DICOM format image data is available electronically for review and comparison. Elevated flow velocities and ICA/CCA ratios have been found to correlate with increased degrees of ve ssel stenosis, calculated as percentage of diameter relative to a normal segment of distal ICA/CCA. FINDINGS: Aortic Arch: Origin of the right brachiocephalic is not included. There is an arch origin of the lef t vertebral. Arch vessels are otherwise patent. 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 The carotid bulb has a normal configuration wit hout ulceration or narrowing. There is some calcification of the aortic bifurcation but no significan t stenosis. The external carotid artery is intact. Left Carotid: The common carotid artery is intact. Calcified and soft plaquing at the origin of the internal results in approximate 50% stenosis. The external carotid artery is intact. Vertebrals: Arch origin of the left vertebral which is widely patent throughout. On the right, there is an approximate 50% stenosis proximally CONCLUSION: 1. CTA confirms the presence of an approximate 50% ostial stenosis of the left internal carotid shasha ry due to a combination of calcified and soft plaque. This would not be considered hemodynamically si gnificant by NASCET criteria, however. 2. Approximately 50% long segment stenosis in the proximal right vertebral. Left vertebral is patent with an arch origin. 3. Calcification of the carotid bifurcation without significant stenosis. Electronically signed by: David Zimmerman MD 12/28/2017 1:47 PM EDT
--- NOTE | 2017-12-28 16:55 | RADRPT ---
EXAM DATE: 12/28/2017 4:44 PM EDT AGE/SEX: 82 years / Male INDICATIONS: Left sided weakness. CLINICAL DATA: This is the patient's initial encounter. Patient reports that signs and symptoms have been present for 3 days and indicates a pain score of 1/10. MEDICAL/SURGICAL HISTORY: Hypercholesterolemia. Diabetes. Hearing loss. Dyspnea. Gastrointesti nal bleed 2009. Ulcers. Coronary artery disease. CABG. Stomach ulcer cauterization. COMPARISON: [facility], CTA CAROTID ARTERIES W 3D RECON, 12/28/2017. . VELOCITY PARAMETERS: ICA/CCA Ratio: Right 1.5 , Left 0.7 ICA: Right 125.3 cm/sec, Left 70.5 cm/sec CCA: Right 82.2 cm/sec, Left 102.7 cm/sec ECA: Right 160.7 cm/sec, Left 137.1 cm/sec Vertebral: Right 66.8 cm/sec antegrade, Left 52.3 cm/sec antegrade FINDINGS: Right Carotid: Moderate arteriosclerotic plaque is visualized.The waveforms are within normal limits . Left Carotid: Moderate arteriosclerotic plaque is visualized. The waveforms are within normal limits . Other: None. CONCLUSION: 1. Right Internal Carotid Artery: Findings indicate 50-69% stenosis, although closer in range to 50% . 2. Left Internal Carotid Artery: Findings indicate <50% stenosis, although nearly 50%. 3. Antegrade vertebral artery flow bilaterally. Electronically signed by: Maikel Smart MD 12/28/2017 4:54 PM EDT
--- NOTE | 2017-12-28 18:43 | ECHRPT ---
Indication: cva/tia CONCLUSIONS Mildly dilated left ventricle. Wall thickness is normal. The left ventricular systolic function is mildly reduced with an estimated ejection fraction of 45%. Atrial septal aneurysm is present (benign finding). Mild mitral valve regurgitation. Aortic valve sclerosis is present. BP: / HR: Rhythm: MEASUREMENTS (Male / Female) Normal Values Technical Quality: 2D ECHO LV Diastolic Diameter PLAX 5.4 cm 4.2 - 5.9 / 3.9 - 5.3 cm LV Systolic Diameter PLAX 4.9 cm IVS Diastolic Thickness 1.4 cm 0.6 - 1.0 / 0.6 - 0.9 cm LVPW Diastolic Thickness 0.7 cm 0.6 - 1.0 / 0.6 - 0.9 cm LV Relative Wall Thickness 0.4 RV Internal Dim ED PLAX 2.1 cm LA Systolic Diameter LX 4.4 cm 3.0 - 4.0 / 2.7 - 3.8 cm DOPPLER Mitral E Point Velocity 115.0 cm/s Mitral A Point Velocity 43.8 cm/s Mitral E to A Ratio 2.6 TR Peak Velocity 162.0 cm/s TR Peak Gradient 10.5 mmHg FINDINGS LEFT VENTRICLE Mildly dilated left ventricle. Wall thickness is normal. The left ventricular systolic function is mildly reduced with an estimated ejection fraction of 45%. RIGHT VENTRICLE Normal right ventricular size and systolic function. LEFT ATRIUM The left atrial size is normal. RIGHT ATRIUM The right atrial size is normal. ATRIAL SEPTUM Atrial septal aneurysm is present (benign finding). AORTA The aortic root and proximal ascending aorta are normal in size on limited imaging. MITRAL VALVE Mild mitral valve regurgitation. AORTIC VALVE Aortic valve sclerosis is present. TRICUSPID VALVE Structurally normal tricuspid valve. No tricuspid valve stenosis or regurgitation. PULMONARY VALVE The pulmonary valve is not well visualized. VESSELS The inferior vena cava is normal in size. PERICARDIUM No pericardial effusion. Arcenio Rivas MD, FACC (Electronically Signed) Final Date:28 December 2017 18:41
--- NOTE | 2017-12-28 20:33 | PD.CONS ---
HPI Service Rehabilitation Medicine Consult Requested By Reason for Consult Comprehensive rehabilitation evaluation. Primary Care Physician No Primary Care Physician Review of Systems Constitutional: DENIES: Fatigue Eyes: DENIES: Diplopia Ears, nose, mouth, throat: DENIES: Throat pain Respiratory: DENIES: Shortness of breath Cardiovascular: DENIES: Chest pain Gastrointestinal: DENIES: Abdominal pain Genitourinary: DENIES: Urinary incontinence Integumentary: DENIES: Rash Hematologic/lymphatic: COMPLAINS OF: Bruising Neurologic: COMPLAINS OF: Localized weakness, DENIES: Headache, Paresthesias, Speech Problems Psychiatric: DENIES: Confusion Past Family Social History Allergies: Coded Allergies: No Known Allergies (Verified Allergy, Unknown, 12/27/17) Current Medications Current Medications Medications (Trade) Dose Ordered Sig/Kim Route Start Time Stop Time Status Last Admin (NS Flush) 2 ml UNSCH PRN IVF 12/27/17 10:30 (Vasotec Inj) 1.25 mg Q4H PRN IV PUSH 12/27/17 14:00 (NovoLOG SUPPLEMENTAL SCALE) 1 ACHS SQ 12/27/17 17:00 12/28/17 18:12 (D50w (Vial) Inj) 50 ml UNSCH PRN IV PUSH 12/27/17 14:00 (Glucagon Inj) 1 mg UNSCH PRN OTHER 12/27/17 14:00 (Ecotrin Ec) 325 mg DAILY PO 12/27/17 17:15 12/28/17 08:26 Sodium Chloride 1,000 ml @ 75 mls/hr [id number] IV 12/27/17 17:14 12/28/17 18:41 Sodium Chloride 1,000 ml @ 100 mls/hr Q10H IV 12/28/17 07:53 (Lipitor) 40 mg HS PO 12/28/17 21:00 Exam I&O / VS 12/28/17 12/28/17 12/29/17 15:00 23:00 07:00 Output Total 225 ml Balance -225 ml Output Urine Total 225 ml Vital Signs Date Time Temp Pulse Resp B/P (MAP) Pulse Ox O2 Delivery O2 Flow Rate FiO2 12/28/17 16:37 98.1 80 17 156/71 (99) 97 12/28/17 12:01 76 12/28/17 12:00 98.3 75 16 163/73 (103) 98 12/28/17 11:53 98 12/28/17 08:00 98.2 73 18 164/70 (101) 98 12/28/17 06:25 97.6 65 17 151/69 (96) 100 12/28/17 01:00 96.2 59 19 143/74 (97) 99 12/27/17 21:45 72 General: No acute distress Respiratory: Lungs CTA, Non-labored respirations, BS equal Gastrointestinal: Positive Bowel Sounds, Non-Distended, Non-Tender Cardiovascular: Normal rate, No edema, Regular Rhythm Psychiatric: Cooperative, Appropriate mood & affect Orientation: oriented to Self, oriented to Place, oriented to Time, oriented to Situation Neurologic: Cranial Nerves (intact 2-12), Speech (Clear), Coordination ( Impaired in left UE and LE) Motor: Right Upper Extremity (5/5), Left Upper Extremity (4/5), Right Lower Extremity (5/5), Left Lower Extremity (4/5) Sensory Intact to light touch bilateral UE and LE DTRs: Normal Babinski: Positive (Equivocal left) Clonus: Negative Assessment and Plan Plan 1. PT is mobilizing and min assist transfers and gait 2 feet forward and backward. Continue to progress as tolerated anticipating that patient should progress well with gait 2. OT addressing ADL's and mod assist UE dressing and max for LE dressing and min assist with grooming. 3. ST has evaluated swallow and tolerating regular diet 4. Case management is addressing discharge planning and patient will benefit from inpatient rehabilitation will goal of return home with home health 5. Will follow while hospitalized and at discharge as appropriate Thank you for this consult Estella Balderrama MD Dec 28, 2017 20:33
[2017-12-28] MEDS ORDERED: ATORVASTATIN 40 MG TAB PO SCH (21:00)
[2017-12-29] VITALS: PULSE 63
[2017-12-29 04:00] VITALS: PULSE 64
[2017-12-29] MEDS: SODIUM CHLOR 0.9% 1000 ML INJ 1,000 ML IV SCH ×2 (06:22→08:12)
[2017-12-29 08:00] VITALS: BP 157/69; PULSE 75; RESP 18; TEMP 98.5; O2SAT 96
[2017-12-29] MEDS: INSULIN ASPART SUPPLEMENTAL SCALE SQ SCH (08:00)
--- NOTE | 2017-12-29 08:11 | HHI.PR ---
Subjective Remarks sr still Objective Vital Signs Date Time Temp Pulse Resp B/P (MAP) Pulse Ox O2 Delivery O2 Flow Rate FiO2 12/29/17 04:00 64 12/29/17 00:00 63 12/28/17 20:49 96 12/28/17 20:00 98.6 74 16 122/59 (80) 96 12/28/17 20:00 69 12/28/17 16:37 98.1 80 17 156/71 (99) 97 12/28/17 12:01 76 12/28/17 12:00 98.3 75 16 163/73 (103) 98 12/28/17 11:53 98 I/O 12/28/17 12/28/17 12/28/17 12/29/17 12/29/17 12/29/17 07:00 15:00 23:00 07:00 15:00 23:00 Intake Total 555 ml 1197 ml Output Total 250 ml 225 ml 300 ml Balance 305 ml -225 ml 897 ml Intake IV Total 555 ml 1197 ml Output Urine Total 250 ml 225 ml 300 ml Result Diagram: 12/27/17 1023 12/27/17 1023 Objective Remarks awake alert 5/5 lue lle still ataxic lue stable Assessment and Plan Assessment and Plan imp sr mra left mca dz and left ica about 60% check cta r deep lacunar type cva fu echo holter asa and statin ldl inc oob ok 12/29/17 50%left ica left mca mod dz ldl inc echo ef 45% plan is to rehab today oob will need cardionet dhg after dc and fu my office fu holter too Adiel Joy MD Dec 29, 2017 08:11
[2017-12-29] MEDS: ASPIRIN EC 325 MG TABEC PO SCH (08:14)
[2017-12-29] MEDS ORDERED: ATOR40TA16 PO (08:47)
[2017-12-29] MEDS ORDERED: ASPI325T33 PO (08:47)
[2017-12-29] MEDS ORDERED: LISI-519 PO (09:13)
[2017-12-29] MEDS ORDERED: LISINOPRIL 5 MG TAB PO ONE (09:15)
--- NOTE | 2017-12-29 09:20 | HHI.DS ---
Discharge Summary Admission Date Dec 27, 2017 at 13:44 Discharge Date: Dec 29, 2017 Admitting Diagnosis CVA, left-sided weakness (1) CVA (cerebral vascular accident) ICD Code: I63.9 - Cerebral infarction, unspecified Diagnosis: Principal Status: Acute (2) Hyperlipidemia ICD Code: E78.5 - Hyperlipidemia, unspecified Diagnosis: Secondary Status: Chronic (3) Hypertension ICD Code: I10 - Essential (primary) hypertension Diagnosis: Secondary Status: Chronic Procedures none Brief History - From Admission Patient is an 82-year-old male who presented to the emergency department with complaint of left-sided weakness that started 2 days ago. He states that he woke up on Wednesday morning and had difficulty using his left arm and left leg due to weakness. He states that it has worsened over the past couple days and this morning he tried to walk with crutches but fell. He did not hit his head when he fell. There was no loss of consciousness. He feels that the strength has gotten a little better in the left upper extremity, but he still feels that the left arm is uncoordinated. He denies headache or vision changes. Denies chest pain or dyspnea. CBC/BMP: 12/27/17 1023 12/27/17 1023 Significant Findings Laboratory Tests Test 12/27/17 10:23 12/27/17 21:07 12/28/17 10:15 White Blood Count 13.7 TH/MM3 (4.0-11.0) Red Blood Count 4.28 MIL/MM3 (4.50-5.90) Hemoglobin 12.2 GM/DL (13.0-17.0) Hematocrit 36.5 % (39.0-51.0) Red Cell Distribution Width 18.6 % (11.6-17.2) Neutrophils (%) (Auto) 80.5 % (16.0-70.0) Neutrophils # (Auto) 11.0 TH/MM3 (1.8-7.7) Platelet Morphology Comment ENLARGED (NORMAL) Ovalocytes 2+ (NORMAL) Random Glucose 191 MG/DL (74-106) Aspartate Amino Transf (AST/SGOT) 13 U/L (15-37) Sodium Level 135 MEQ/L (136-145) Estimat Glomerular Filtration Rate 58 ML/MIN (>89) Troponin I LESS THAN 0.02 NG/ML Triglycerides Level 262 MG/DL (42-150) 214 MG/DL (42-150) Cholesterol Level 203 MG/DL (120-200) LDL Cholesterol 128 MG/DL (0-99) 116 MG/DL (0-99) HDL Cholesterol 22.7 MG/DL (40.0-60.0) 23.2 MG/DL (40.0-60.0) Imaging Last Impressions Neck CTA 12/28/17 656 Signed Impressions: CONCLUSION: 1. CTA confirms the presence of an approximate 50% ostial stenosis of the left internal carotid artery due to a combination of calcified and soft plaque. Thi s would not be considered hemodynamically significant by NASCET criteria, howev er. 2. Approximately 50% long segment stenosis in the proximal right vertebral. Le ft vertebral is patent with an arch origin. 3. Calcification of the carotid bifurcation without significant stenosis. Head CTA 12/28/17 673 Signed Impressions: CONCLUSION: 1. Significant atherosclerotic irregularity involving the left A1 and left M1 and M2 segments. 2. Otherwise, intracranial vessels are all patent without embolus or aneurysma l disease. Carotid Artery Ultrasound 12/28/17 0000 Signed Impressions: CONCLUSION: 1. Right Internal Carotid Artery: Findings indicate 50-69% stenosis, although closer in range to 50%. 2. Left Internal Carotid Artery: Findings indicate <50% stenosis, although bernie rly 50%. 3. Antegrade vertebral artery flow bilaterally. Neck Magnetic Resonance Angiography 12/27/17 3355 Signed Impressions: CONCLUSION: 1. Focal stenosis in the carotid bulb and proximal internal carotid artery on the left with at least 60% stenosis. Consider carotid CTA for more accurate ass essment. 2. Mild atherosclerotic disease in the right carotid bulb but no significant s tenosis is present. 3. Suspected focal high-grade narrowing at the origin of the right vertebral a rtery. Percent stenosis is calculated using the diameter of the stenotic region over t he diameter of the normal distal internal carotid artery Brain MRI 12/27/17 1714 Signed Impressions: CONCLUSION: 1. There is a focal area of restricted diffusion representing recent ischemia in the right frontal periventricular white matter. 2. Chronic findings include generalized atrophy and moderate severity perivent ricular white matter signal change characteristic of chronic microvascular isch emia. Head CT 12/27/17 1019 Signed Impressions: CONCLUSION: 1. No acute intracranial abnormalities. 2. Chronic white matter ischemic changes. Chest X-Ray 12/27/17 1019 Signed Impressions: CONCLUSION: No acute disease Head Magnetic Resonance Angiography 12/27/17 0000 Signed Impressions: CONCLUSION: 1. There is a high-grade stenosis suspected in the right proximal posterior ce rebral artery. 2. Moderate luminal irregularity in the proximal left middle cerebral artery m ost likely related to atherosclerotic disease. There is also likely atheroscler otic change with mild luminal narrowing involving the intracranial internal car otid arteries. PE at Discharge GENERAL: This is a well-nourished, well-developed patient, in no apparent distress. CARDIOVASCULAR: Regular rate and rhythm RESPIRATORY: Clear to auscultation. Breath sounds equal bilaterally. No wheezes , rales, or rhonchi. GASTROINTESTINAL: Abdomen soft, non-tender, nondistended. Normal active bowel sounds MUSCULOSKELETAL: Extremities without clubbing, cyanosis, or edema. NEURO: Alert & Oriented x4 to person, place, time, situation. Left upper extremity and lower extremity show 4.5 out of 5 motor strength, sensation intact Pt update on day of discharge No complaints overnight. Doing physical therapy. Is unsteady when he ambulates with physical therapy. No complaints of headaches or visual changes. Tolerating diet without any difficulty. Hospital Course These are the medical issues addressed during this hospitalization: 1. Acute right frontal ischemic CVA: CT of the head is negative. MRI of the brain revealed acute right frontal acute CVA, MRA of the brain show right posterior cerebral artery stenosis along with left carotid artery stenosis about 60% and recommended CTA of the neck for further evaluation. CTA of the neck showed 50% stenosis. Carotid artery ultrasound reviewed and 2D echocardiogram shows EF of 45% with benign atrial septal aneurysm, mild mitral valve regurgitation and aortic valve sclerosis. Appreciate neurology, Dr. Joy's recommendations. He is recommending outpatient Holter monitor with follow-up in his office PT/OT/ST. Allow permissive hypertension during initial admission. Start statin. Continue aspirin. Initiate lisinopril 5 mg p.o. daily for better blood pressure control. 2. Coronary artery disease: Status post CABG 12 years ago. Patient denies chest pain. He has not been taking any medications for the past few years. Start statin. Monitor on telemetry. Continue with aspirin 3. Hyperglycemia on presentation: Patient has reported history of diet- controlled diabetes, but has not had his blood sugar checked in many years. Monitor Accu-Cheks and cover with sliding scale insulin during hospitalization. Hemoglobin A1c is 5.6 and relatively well-controlled 4. Leukocytosis: Likely stress reaction. No other signs of infection at this time. 5. DVT prophylaxis: PRIYANKA Villegas. 6. Elevated blood pressure likely underlying essential hypertension chronic lisinopril 5 mg will be initiated At this time, patient has gained maximum benefit from hospitalization is ready to be discharged to inpatient rehab Pt Condition on Discharge: Good Discharge Disposition: Rehab Inpatient Discharge Time: <= 30 minutes Discharge Instructions DIET: Follow Instructions for: Heart Healthy Diet Activities you can perform: Regular-No Restrictions Follow up Referrals: Neurology - 3 Weeks with Adiel Joy MD PCP Follow-up - 1 Week New Medications: Lisinopril (Lisinopril) 5 Mg Tab 5 MG PO DAILY for Blood Pressure Management, #30 TAB [address] (Aspirin EC) 325 Mg Tabdr 325 MG PO DAILY for Prevent Blood Clot, #30 TAB Atorvastatin (Atorvastatin) 40 Mg Tab 40 MG PO HS for Cholesterol Management, #30 TAB Jessica Grant MD Dec 29, 2017 09:20
[2017-12-30] MEDS ORDERED: LISINOPRIL 5 MG TAB PO SCH (09:00)
--- NOTE | 2017-12-30 21:30 | HM ---
Date Performed: 12/28/2017 Time Performed: 10:09:00 HOOKUP DATE: 12/28/17 10:09:00 AM Tue ANALYSIS START TIME: 12/28/2017 10:14:00 AM ANALYSIS END TIME: 12/29/2017 10:18:00 AM PATIENT AGE: 82 PATIENT HEIGHT PATIENT WEIGHT: 198 DRUG LIST: CVA LEFT-SIDED WEAKNESS PATIENT DIAGNOSIS: ROOM 817 TEST NARRATIVE: The patient's average heart rate was 80 BPM. Heart rates greater than 120 B PM were noted < 1% of the time. No episodes of bradycardia were noted. No pauses exceeding 2.0 s econds were noted. 3687 ventricular ectopics, which represented 3% of the total beat count, were noted. The highest ventricular ectopic frequency occurred from 09:00 AM to 10:00 AM Wed. During thi s time 230 VE(s) occurred. Ventricular ectopics were observed as 3626 isolated beat(s), as 29 couple t(s) and as 1 run(s). Some of the ventricular beats occurred in bigeminal cycles. 6648 supravent ricular ectopics, which represented 6% of the total beat count, were noted. The highest supraventric ular ectopic frequency occurred from 04:00 AM to 05:00 AM Wed. During this time 548 SVE(s) occurred. Multiple episodes of ST depression (defined as -1.0 mm or more) were noted in channel 1. The m aximum depression of -2.2 mm occurred at 10:40:04 AM Tue. Multiple episodes of ST depression (define d as -1.0 mm or more) were noted in channel 2. The maximum depression of -2.0 mm occurred at 10:42: 54 AM Tue. Multiple episodes of ST depression (defined as -1.0 mm or more) were noted in channel 3. The maximum depression of -1.9 mm occurred at 10:40:45 AM Tue. NO DIARY WAS RETURNED BY THE PATIENT TEST INTERPRETATION: 1.Patient was monitored for 24hrs for an average heart rate of 80bpm.Minimu m heart rate of 56bpm and maximum hear rate of 162bpm. There were 3626 PVC's with one ventricular tr iplet and multiple atrial runs with the longest being 12 beats. Conclusion: Sinus rythm with occasion al short and fast atrial runs and ventricular ectopy as in above paragraph. Of note, baseline ST depr essions are potentiated during higher heart rates and ischemic workup could be warranted Signed by : Avtar El
== END 2017-12-29 11:59 | DRG 65 ==
LOC: NEPC 09:48 → NEDH 13:44 → N05B 16:31
PROVIDERS: ADMIT Family Medicine; ATTEND Family Medicine
DX: I63.531 Cerebral infarction due to unspecified occlusion or stenosis of right posterior cerebral artery (principal); I25.3 Aneurysm of heart; E11.65 Type 2 diabetes mellitus with hyperglycemia; G81.94 Hemiplegia, unspecified affecting left nondominant side; D72.829 Elevated white blood cell count, unspecified; R27.0 Ataxia, unspecified; E78.5 Hyperlipidemia, unspecified; I08.0 Rheumatic disorders of both mitral and aortic valves; I10 Essential (primary) hypertension; I25.10 Atherosclerotic heart disease of native coronary artery without angina pectoris; F17.210 Nicotine dependence, cigarettes, uncomplicated; W19.XXXA Unspecified fall, initial encounter; Z85.828 Personal history of other malignant neoplasm of skin; Z87.11 Personal history of peptic ulcer disease; Z95.1 Presence of aortocoronary bypass graft
CPT/HCPCS: 70450; 70496; 70498; 70544; 70548; 70553; 71045; 80053; 80061; 82550; 82607; 82746; 82948; 83036; 84439; 84443; 84484; 85025; 85610; 85652; 85730; 86038; 86592; 93005; 93225; 93226; 93306; 93880; 99285; A9579; J1815; J7030

== ENCOUNTER 2018-01-25 19:38 | Inpatient (IN) ==
--- NOTE | 2018-01-25 20:12 | ED ---
HPI General Chief Complaint: Chest Pain Stated Complaint: Evac/Chest pain/Gardens H&R Time Seen by Provider: 01/25/18 19:58 History of Present Illness HPI narrative: Patient comes [facility] complaining of left-sided substernal chest pressure 2 episodes. First episode reported only happened around 1800 today. Patient was given 2 nitros and relieved the symptoms. Patient began having a separate episode around 1900 was given 3 nitros EMS was called. Patient received 3 or 24 mg of aspirin by EMS in route. Patient denies any pain currently. Patient reports feeling tingling sensation throughout his chest when this was going on. Denies any shortness of breath, nausea, vomiting, dizziness, headache, new weakness,. Patient states he has never had a stress test. Complete Quality Measures for STEMI Alert Patients Related Data Previous Rx's Medication Instructions Recorded aspirin 81 mg PO DAILY #30 tab 01/13/18 atorvastatin 40 mg PO HS #30 tab 01/13/18 bisacodyl 10 mg PO HS #60 tab 01/13/18 citalopram 20 mg PO DAILY #30 tab 01/13/18 clopidogrel [Plavix] 75 mg PO DAILY #30 tab 01/13/18 gabapentin 200 mg PO Q8H #180 cap 01/13/18 melatonin 5 mg PO HS #30 tab 01/13/18 polyethylene glycol 3350 17 gm PO DAILY 30 Days each 01/13/18 sennosides-docusate sodium [Senna 1 tab PO BID #60 tab 01/13/18 Plus] sodium chloride 1 gm PO TID #90 tab 01/13/18 Allergies Allergy/AdvReac Type Severity Reaction Status Date / Time No Known Allergies Allergy Verified 01/01/18 14:05 Review of Systems Except as stated in HPI: all other systems reviewed are negative [facility] Medical History Medical History Atrial fibrillation (Acute) Diabetes (Acute) Heart attack (Acute) High cholesterol (Acute) Hypertension (Acute) Major depressive disorder (Acute) Stroke (Acute) Social History Social History Substance History: No History of Abuse Second Hand Smoke Exposure: No Smoking Status: Former smoker How Often Do You Have a Drink Containing Alcohol: Never Recent Travel in [facility] within the Last 8 Weeks: No Recent Out of Country Travel within the Last 8 Weeks: No Immunization History Tetanus Immunization: Unsure Hx Influenza Vaccine This Season: No Procedures Hemaprompt Stool Procedural Steps Taken: specimen placed in appropriate test area, developer placed on specimen and control areas and controls appropriately positive and negative Hemaprompt Stool Result: positive Additional Comments: Verbal consent was obtained. Digital rectal exam was performed. Stool specimen applied and test interpreted between 1 and 3 minutes of application and the result was positive. Internal Controls: Both positive and negative controls were validated. Dr. Newman was present during this exam. Course Consultations Consultation #1: Discussed patient with Dr. Prajapati's COMMUNICATIONS MAINTAINER Deepika, is agreeable to admit the patient. Time: 21:20 Consultation #2: Discussed patient with Dr. Ray, pilot fuel engineer on-call, recommends transfusing patient 2 units and he will see patient in consult. Time: 22:13 Consultation #3: At 1 AM after patient was treated with metoprolol 5 mg IV for sudden onset A. fib with RVR rate 156 with rate controlled to 100 -104 bpm case was discussed with admitting provider, Deepika COMMUNICATIONS MAINTAINER for Dr Prajapati, request care be transferred to fleet sales manager service --call placed to Dr Almonte --will accept patient to his service for management NSTEMI, anemia, ugib, afib rvr recent CVA Initial Documented Vital Signs Temperature 98.8 F 01/25/18 19:49 Pulse Rate 88 01/25/18 19:49 Respiratory Rate 18 01/25/18 19:49 Blood Pressure 120/58 L 01/25/18 19:49 Pulse Oximetry 99 01/25/18 19:49 Last Documented Vital Signs Temperature 97.7 F 01/26/18 00:40 Pulse Rate 109 H 01/26/18 00:40 Respiratory Rate 16 01/26/18 00:40 Blood Pressure 136/59 L 01/26/18 00:40 Pulse Oximetry 98 01/26/18 00:40 Medical Decision Making CHUY Attestation CHUY supervised visit: Yes Attestation: I, Dr. Newman, have reviewed the advance practice practitioner's documentation and am in agreement, met with the patient face to face, made the diagnosis, and the medical decision making was done by me. *My assessment and Findings: I agree with PA evaluation and interventions; 82- year-old male recently discharged from hospital after right lacunar CVA with left-sided residual to rehab facility. Patient at rehab noted to have retrosternal chest pain that resolved after sublingual nitroglycerin was transported to the emergency department and in route had recurrent chest pain that resolved after 3 sublingual nitroglycerin. Upon arrival to the emergency department patient pain-free but during ER visit had recurrent 9/10 chest pain which resolved after one sublingual nitroglycerin patient was started on nitroglycerin infusion was identified to have anemia hemoglobin of 7.2 which was a new finding from prior hemoglobin of 10.2 rectal exam was performed that was trace Hemoccult positive and patient does admit to history of previous peptic ulcer disease with upper GI bleed. No nausea no vomiting. Patient has had some increased bruising. Patient is currently prescribed aspirin and Plavix daily. Patient with known history of hypertension CHF and CAD. Patient was placed on potline monitor with continuous pulse oximetry IV access obtained patient did receive sublingual nitroglycerin and nitroglycerin infusion for chest pain with chest pain controlled and 0/10 in intensity chest x-ray did not show any overt failure first troponin I however was elevated 0.22 on-call cardiology was consulted regarding patient's care aware that patient has history of upper GI bleed from peptic ulcer disease aware of new anemia aware of Hemoccult positive stool therefore not a candidate for heparinization but concerned that may have anemia related cardiac ischemia/injury 2 units of packed cells were recommended and ordered. Patient was discussed with his primary care provider Dr. Prajapati for admission. Patient will be admitted for non-ST elevation MD acute anemia with prior history of CAD hypertension and CVA. At 12:10 AM patient identified to be in atrial fibrillation with RVR; patient normotensive packed red blood cells transfused and given metoprolol 5 mg IV 1 dose; atrial fibrillation with RVR not responsive to vagal maneuvers. EKG ordered. MDM Narrative Medical decision making narrative: Patient seen and examined. Initial laboratory radiological studies were ordered. IV was established patient placed on continuous cardiac monitoring. Patient was given sublingual nitro after pain return. Discussed patient options of saw and evaluated patient and administered patient on nitro drip. Patient was found to be anemic compared to the previous visit. Rectal exam was performed and was Hemoccult positive. Patient started on a Protonix drip. Patient is on Plavix and aspirin. Discussed all findings and plan of care patient is agreeable for admission. Discussed patient with hospitalist is agreeable to admit patient. Discussed patient with pilot fuel engineer, who will see the patient in consult. Discussed patient with Dr. Newman, who is in agreement plan of care disposition. All questions were answered. Differential Diagnosis Differential Diagnosis: Atypical chest pain, unstable angina, coronary syndrome , gastritis, pneumonia, metabolic disturbance Medical Records Medical records reviewed: Yes I reviewed the patient's medical records. Lab Data Lab results reviewed: Yes I reviewed the patient's lab results. Result diagrams: 01/25/18 20:07 01/25/18 20:07 Lab Results 01/25/18 01/25/18 01/25/18 Range/Units 20:07 20:07 20:07 WBC 14.6 H (4.0-11.0) th/mm3 RBC 2.45 L (4.50-5.90) mil/mm3 Hgb 7.4 L (13.0-17.0) gm/dL Hct 20.4 L* (39.0-51.0) % MCV 83.4 (80.0-100.0) fL MCH 30.2 (27.0-34.0) pg MCHC 36.2 H (32.0-36.0) % RDW 17.9 H (11.6-17.2) % Plt Count 413 (150-450) th/mm3 MPV 9.5 (7.0-11.0) fL Prelim Diff (Auto) Slide review pending Neut % (Auto) 86.0 H (16.0-70.0) % Lymph % (Auto) 6.1 L (9.0-44.0) % [place] % (Auto) 6.2 (0.0-8.0) % Eos % (Auto) 0.4 (0.0-4.0) % Baso % (Auto) 1.3 (0.0-2.0) % Neut # (Auto) 12.5 H (1.8-7.7) th/mm3 Lymph # (Auto) 0.9 L (1.0-4.8) th/mm3 [place] # (Auto) 0.9 (0.0-0.9) th/mm3 Eos # (Auto) 0.1 (0.0-0.4) th/mm3 Baso # (Auto) 0.2 (0.0-0.2) th/mm3 WBC Differential Manual diff final Seg Neuts % (Manual) 84 H (16-70) % Band Neuts % (Manual) 6 (0-6) % Lymphocytes % (Manual) 4 L (9-44) % Monocytes % (Manual) 5 (0-8) % Basophils % (Manual) 1 (0-2) % Abs Neuts (Manual) 13.1 H (1.8-7.7) th/mm3 Differential Comment . Toxic Granulation 2+ H (None) Platelet Estimate Normal (Normal) Platelet Morphology Normal (Normal) Tear Drop Cells 1+ H (None) Ovalocytes 2+ H (None) Acanthocytes (Spur) Occ H (None) PT 11.2 (9.8-11.6) sec INR 1.1 Ratio APTT 23.6 L (24.3-30.1) sec Sodium 138 (136-145) meq/L Potassium 3.4 L (3.5-5.1) meq/L Chloride 106 (98-107) meq/L Carbon Dioxide 20.2 L (21.0-32.0) meq/L Anion Gap 12 (5-15) meq/L BUN 36 H (7-18) mg/dL Creatinine 0.90 (0.60-1.30) mg/dL Estimated GFR 81 L (>89) mL/min Random Glucose 175 H (74-106) mg/dL Calcium 8.4 L (8.5-10.1) mg/dL Magnesium 1.9 (1.5-2.5) mg/dL Total Creatine Kinase 43 (39-308) U/L Troponin I 0.22 H (0.02-0.05) ng/mL B-Natriuretic Peptide (0-100) pg/mL Blood Type Blood Type Recheck Antibody Screen MTS Gel Crossmatch 01/25/18 01/25/18 01/25/18 Range/Units 20:07 21:09 21:09 WBC (4.0-11.0) th/mm3 RBC (4.50-5.90) mil/mm3 Hgb (13.0-17.0) gm/dL Hct (39.0-51.0) % MCV (80.0-100.0) fL MCH (27.0-34.0) pg MCHC (32.0-36.0) % RDW (11.6-17.2) % Plt Count (150-450) th/mm3 MPV (7.0-11.0) fL Prelim Diff (Auto) Neut % (Auto) (16.0-70.0) % Lymph % (Auto) (9.0-44.0) % [place] % (Auto) (0.0-8.0) % Eos % (Auto) (0.0-4.0) % Baso % (Auto) (0.0-2.0) % Neut # (Auto) (1.8-7.7) th/mm3 Lymph # (Auto) (1.0-4.8) th/mm3 [place] # (Auto) (0.0-0.9) th/mm3 Eos # (Auto) (0.0-0.4) th/mm3 Baso # (Auto) (0.0-0.2) th/mm3 WBC Differential Seg Neuts % (Manual) (16-70) % Band Neuts % (Manual) (0-6) % Lymphocytes % (Manual) (9-44) % Monocytes % (Manual) (0-8) % Basophils % (Manual) (0-2) % Abs Neuts (Manual) (1.8-7.7) th/mm3 Differential Comment Toxic Granulation (None) Platelet Estimate (Normal) Platelet Morphology (Normal) Tear Drop Cells (None) Ovalocytes (None) Acanthocytes (Spur) (None) PT (9.8-11.6) sec INR Ratio APTT (24.3-30.1) sec Sodium (136-145) meq/L Potassium (3.5-5.1) meq/L Chloride (98-107) meq/L Carbon Dioxide (21.0-32.0) meq/L Anion Gap (5-15) meq/L BUN (7-18) mg/dL Creatinine (0.60-1.30) mg/dL Estimated GFR (>89) mL/min Random Glucose (74-106) mg/dL Calcium (8.5-10.1) mg/dL Magnesium (1.5-2.5) mg/dL Total Creatine Kinase (39-308) U/L Troponin I (0.02-0.05) ng/mL B-Natriuretic Peptide 418 H (0-100) pg/mL Blood Type A Positive Blood Type Recheck Not needed Antibody Screen Negative MTS Gel Crossmatch See Detail Imaging Data Radiologist's impression: Chest X-Ray 01/25/18 19:58 CONCLUSION: No acute abnormality is seen. ECG Data Interpretation: EKG reviewed by Dr. Newman shows sinus rhythm ventricular rate of 92. No STEMI. Repeat EKG when patient was having active chest pain reviewed by Dr. Newman shows sinus tachycardia with ventricular rate of 160. ST depressions. No STEMI. Discharge Plan Discharge Disposition Patient Disposition: 30 Still Patient Discharge Condition Condition: Stable Discharge Details Diagnosis: Acute non-ST elevation myocardial infarction (NSTEMI), Acute GI bleeding, Atrial fibrillation with RVR Physicians Team ED Provider: Kami Newman ED Midlevel Provider: Alexandr Corona Primary Care Provider: Jackelyn Felder Clinical Attending Provider: John Prajapati Other Providers: Javy Mcdonald ; Mendez Ray Status ED Status: Admitted Patient
[2018-01-25 20:24] LABS: Baso # (Auto) 0.2 th/mm3 (0.0-0.2); Baso % (Auto) 1.3 % (0.0-2.0); Eos # (Auto) 0.1 th/mm3 (0.0-0.4); Eos % (Auto) 0.4 % (0.0-4.0); Hemoglobin 7.4 gm/dL (13.0-17.0); Lymph # (Auto) 0.9 th/mm3 (1.0-4.8); Lymph % (Auto) 6.1 % (9.0-44.0); Mean Corpuscular Hemoglobin 30.2 pg (27.0-34.0); Mean Corpuscular Volume 83.4 fL (80.0-100.0); Mean Platelet Volume 9.5 fL (7.0-11.0); Mono # (Auto) 0.9 th/mm3 (0.0-0.9); Mono % (Auto) 6.2 % (0.0-8.0); Neut # (Auto) 12.5 th/mm3 (1.8-7.7); Platelet Count 413 th/mm3 (150-450); Red Blood Count 2.45 mil/mm3 (4.50-5.90); Red Cell Distribution Width 17.9 % (11.6-17.2); White Blood Count 14.6 th/mm3 (4.0-11.0)
[2018-01-25] MEDS ORDERED: Nitroglycerin Drip Premix 50 MG/250 ML BOTTLE IV.CONT PRN (20:29)
[2018-01-25] MEDS ORDERED: Morphine Inj 4 MG/ML Vial IV.PUSH ONE (20:33)
[2018-01-25 20:39] LABS: Mean Corpuscular HGB Conc 36.2 % (32.0-36.0)
[2018-01-25 20:43] LABS: Hematocrit 20.4 % (39.0-51.0)
[2018-01-25 20:49] LABS: Calcium 8.4 mg/dL (8.5-10.1); Carbon Dioxide 20.2 meq/L (21.0-32.0); Magnesium 1.9 mg/dL (1.5-2.5); Potassium 3.4 meq/L (3.5-5.1)
[2018-01-25 20:50] LABS: Activated Partial Thrombo Time 23.6 sec (24.3-30.1); INR 1.1 Ratio; Prothrombin Time 11.2 sec (9.8-11.6)
[2018-01-25 20:53] LABS: Troponin I 0.22 ng/mL (0.02-0.05)
[2018-01-25] MEDS ORDERED: Pantoprazole Inj 80 MG in Sodium Chlor 0.9% Inj 50 ML IV.SIG ONE (21:10)
--- NOTE | 2018-01-25 21:15 | XR ---
EXAM DATE: 01/25/2018 8:38 PM EDT AGE/SEX: 82 years / Male INDICATIONS: Chest pain and shortness of breath. CLINICAL DATA: This is the patient's initial encounter. Patient reports that signs and symptoms have been present for 1 day and indicates a pain score of 8/10. MEDICAL/SURGICAL HISTORY: Hypertension. CABG. COMPARISON: [facility], CHEST 2V PA&LAT, 01/08/2018. . FINDINGS: The patient is status post sternotomy. The heart size is within normal limits. The lungs are grossly clear. There appear to be old healed right rib fractures. CONCLUSION: No acute abnormality is seen. Electronically signed by: Branden Herron MD 01/25/2018 9:13 PM EDT
[2018-01-25 21:16] LABS: Lymphocytes 4 % (9-44); Monocytes 5 % (0-8)
[2018-01-25 21:17] LABS: Acanthocytes Occ; Ovalocytes 2+; Platelet Estimate Normal (Normal); Platelet Morphology Normal (Normal); Tear Drop Cells 1+; Toxic Granulation 2+
[2018-01-25] MEDS ORDERED: Acetaminophen 325 MG Tablet PO PRN (21:24)
[2018-01-25] MEDS ORDERED: Sod Chloride 0.9% Inj 1,000 ML IV.CONT SCH ×2 (21:30→21:59)
[2018-01-25] MEDS ORDERED: Pantoprazole Inj 80 MG in Sodium Chlor 0.9% Inj 100 ML IV.CONT SCH (22:00)
[2018-01-25] MEDS ORDERED: Sodium Chlor 0.9% Inj 250 ML IV.SIG SCH (22:00)
[2018-01-25] MEDS ORDERED: Morphine Inj 4 MG/ML Vial IV.PUSH PRN (23:24)
[2018-01-26] MEDS ORDERED: Metoprolol Inj 5 MG/5 ML Vial IV.PUSH ONE (00:03)
[2018-01-26] MEDS: Gabapentin 100 MG Capsule PO SCH ×3 (01:44→14:08)
[2018-01-26] MEDS ORDERED: Bisacodyl 10 MG Supp RECTAL PRN (02:02)
--- NOTE | 2018-01-26 02:07 | P.HPCC ---
History of Present Illness Primary Care Physician: [facility] History of Present Illness: 82-year-old gentleman presents complaining of left-sided substernal chest pressure 2 episodes. First episode reported only happened around 1800 today. Patient was given 2 nitroglycerin with relief of the symptoms. Patient began having a separate episode around 1900 was given 3 nitroglycerin and EMS was called. Patient received 3 aspirins by EMS in route. Patient denies any pain currently. Patient reports feeling tingling sensation throughout his chest when this was going on. Denies any shortness of breath, nausea, vomiting, dizziness, headache, new weakness,. Patient states he has never had a stress test. In the emergency department he was found to have elevated troponin, however also melanotic stool with severe anemia. The cardiology on-call was consulted with recommendation of conservative management due to acute GI bleed. While in the emergency department he also developed atrial fibrillation with rapid ventricular response at 150s. He was treated with metoprolol IV with improvement of the heart rate to 100 and is now admitted to ICU. Inpatient Certification: I certify that the inpatient services were ordered in accordance with Medicare regulations governing the order. This includes certification that hospital inpatient services are reasonable and necessary and in the case of services not specified as inpatient-only under 42 CFR 419.22(n), that they are appropriately provided as inpatient services in accordance to with the 2-midnight benchmark under 43 CFR 412.3(e) Estimated Total Length of Stay (Days): 5 Plans for Post Hospital Care: Not yet determined Review of Systems Constitutional: Denies anorexia, Denies body ache(s), Denies chills Eyes: Denies blind spots, Denies blurry vision, Denies bulging eyes Ears, Nose, Mouth, and Throat: Denies abnormal hearing, Denies bleeding gums, Denies bad breath Cardiovascular: Reports chest pain, Denies excessive sweating, Denies fainting, Denies fast heart rate, Denies shortness of breath when lying down Respiratory: Denies change in phlegm color, Denies chest congestion Gastrointestinal: Reports black, tarry stools, Denies abdominal pain, Denies belching Genitourinary: Denies blood in semen, Denies blood in urine Musculoskeletal: Denies abnormal walking, Denies back pain, Denies body aches Skin/Breast: Denies acne, Denies bleeding lesions, Denies boil Neurologic: Denies abnormal hearing, Denies abnormal movements, Denies abnormal walking Psychiatric: Denies abnormal sleep pattern, Denies change in sex drive, Denies confusion, Denies hearing things others do not hear Endocrine: Denies cold intolerance, Denies excessive sweating Hematologic/Lymphatic: Denies easy bleeding Allergic/Immunologic: Denies GI upset with certain foods PMFSH - History History 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 - Medical History Medical History: Medical History (Last Reviewed 01/25/18 @ 20:12 by BORA Palacio) Atrial fibrillation Diabetes Heart attack High cholesterol Hypertension Major depressive disorder Stroke - Tobacco History Second Hand Smoke Exposure: No Tobacco Use In Past 30 Days: No Smoking Status: Former smoker - Alcohol History How Often Do You Have a Drink Containing Alcohol: Never - Substance Use History Substance History: No History of Abuse - Travel History Recent Travel in the [facility] Within the Last 8 Weeks: No Recent Travel Out of the Country Within the Last 8 Weeks: No - Immunization History Tetanus Immunization: Unsure Hx Influenza Vaccine This Season: No Medications and Allergies Active Medications: Active Medications Acetaminophen (Tylenol) 650 mg PO Q4H PRN PRN Reason: Temp > 100.4 Al Hydroxide/Mg Hydroxide (Milk Of Magnsally Liq) 30 ml PO Q12H PRN PRN Reason: Mild Constipation Atorvastatin Calcium (Lipitor) 40 mg PO HS MAL Citalopram Hydrobromide (Celexa) 20 mg PO DAILY MAL Gabapentin (Neurontin) 200 mg PO Q8HR MAL Last Admin: 01/26/18 01:44 Dose: Not Given Nitroglycerin/Dextrose (Nitroglycerin Drip Premix) 50 mg in 250 mls @ 0 mls/hr IV.CONT TITRATE PRN; Protocol PRN Reason: Per Protocol Last Titration: 01/25/18 22:34 Dose: 10 mcg/min, 3 mls/hr Pantoprazole Sodium 80 mg/ (Sodium Chloride) 100 mls @ 10 mls/hr IV.CONT CONT MAL Last Admin: 01/26/18 01:45 Dose: 10 mls/hr Sodium Chloride (Ns Inj) 250 mls @ 15 mls/hr IV.SIG ONCE MAL Stop: 01/26/18 14:39 Last Admin: 01/26/18 01:00 Dose: Not Given Sodium Chloride (Ns Inj) 1,000 mls @ 88 mls/hr IV.CONT .[id number] MAL Stop: 01/26/18 08:51 Melatonin (Melatonin) 5 mg PO HS MAL Metoclopramide HCl (Reglan Inj) 5 mg IV.PUSH Q6HR PRN; Protocol PRN Reason: NAUSEA OR VOMITING Morphine Sulfate (Morphine Inj) 2 mg IV.PUSH Q4H PRN PRN Reason: Acute Pain Sodium Chloride (Ns Flush) 2 ml IV.FLUSH UNSCH PRN PRN Reason: FLUSH AFTER USING IV ACCESS Allergies Allergy/AdvReac Type Severity Reaction Status Date / Time No Known Allergies Allergy Verified 01/01/18 14:05 Results - Labs CBC & Chem 7: 01/25/18 20:07 01/25/18 20:07 Labs: Short CBC 01/25/18 Range/Units 20:07 WBC 14.6 H (4.0-11.0) th/mm3 Hgb 7.4 L (13.0-17.0) gm/dL Hct 20.4 L* (39.0-51.0) % Plt Count 413 (150-450) th/mm3 BMP 01/25/18 20:07 Sodium 138 Potassium 3.4 L Chloride 106 Carbon Dioxide 20.2 L BUN 36 H Creatinine 0.90 Calcium 8.4 L Cardiac Enzymes 01/25/18 Range/Units 20:07 Total Creatine Kinase 43 (39-308) U/L Troponin I 0.22 H (0.02-0.05) ng/mL - Imaging Impressions Chest X-Ray 01/25/18 19:58 CONCLUSION: No acute abnormality is seen. Exam Vital signs: Vital Signs 01/25/18 19:49 01/25/18 20:02 01/25/18 20:30 Temperature 98.8 F 98.8 F Pulse Rate 88 90 Respiratory Rate 18 18 Blood Pressure 120/58 L 121/58 L Pulse Oximetry 99 99 98 01/25/18 21:44 01/26/18 00:28 01/26/18 00:40 Temperature 97.8 F 97.7 F Pulse Rate 95 H 91 H 109 H Respiratory Rate 20 16 16 Blood Pressure 137/62 156/65 H 136/59 L Pulse Oximetry 95 98 01/26/18 00:58 Temperature 97.8 F Pulse Rate 105 H Respiratory Rate 16 Blood Pressure 106/50 L Pulse Oximetry 98 Intake & Output 01/25/18 01/25/18 01/26/18 06:59 18:59 06:59 Intake Total 0 / 0 Balance 0 / 0 Weight 83.915 kg Intake: IV 0 / 0 Nitroglycerin Drip Premix 50 mg 0 / 0 In 250 ml @ Per Protocol IV. CONT TITRATE PRN Rx#:[id number] Intake (Blood Product) Amt 0 / 0 Rbc As-3 Leukoreduced Unit 0 / 0 [id number] - Constitutional moderate distress - Routine HEENT Exam Head: Present: normocephalic, atraumatic Eye: Present: PERRL ENT: Present: mucous membranes moist - Routine Neck Exam Present: supple. Absent: full ROM, JVD - Routine Chest/Breast/Axilla Exam Chest wall: Absent: tenderness, mass Breast: Absent: tenderness, induration - Routine Respiratory Exam Absent: accessory muscle use - Routine Cardiovascular Exam Present: S1, S2, tachycardia, irregular rhythm - Routine Abdominal Exam Present: soft, normoactive bowel sounds - Routine Extremities Exam Absent: cyanosis, clubbing, edema - Routine Skin Exam Present: intact, cyanosis. Absent: erythema - Routine Neurological Exam Present: alert, oriented X3 Caprini VTE Risk Assessment Caprini VTE Risk Assessment: Moderate/High Risk (score >= 2) VTE Pharmacological Exception Reason: Hemorrhage Caprini Risk Assessment Model: Point Value = 1 Point Value = 2 Point Value = 3 Point Value = 5 Age 41-60 Minor surgery BMI > 25 kg/m2 Swollen legs Varicose veins or History of unexplained or recurrent spontaneous Oral contraceptives or hormone replacement Sepsis (< 1 month) Serious lung disease, including pneumonia (< 1 month) Abnormal pulmonary function Acute myocardial infarction Congestive heart failure (< 1 month) History of inflammatory bowel disease Medical patient at bed rest Age 61-74 Arthroscopic surgery Major open surgery (> 45 min) Laparoscopic surgery (> 45 min) Malignancy Confined to bed (> 72 hours) Immobilizing plaster cast Central venous access Age >= 75 History of VTE Family history of VTE Factor V Leiden Prothrombin [id number] Lupus anticoagulant Anticardiolipin antibodies Elevated serum homocysteine Heparin-induced thrombocytopenia Other congenital or acquired thrombophilia Stroke (< 1 month) Elective arthroplasty Hip, pelvis, or leg fracture Acute spinal cord injury (< 1 month) Prophylaxis Regimen: Total Risk Factor Score Risk Level Prophylaxis Regimen 0-1 Low Early ambulation 2 Moderate Order ONE of the following: *Sequential Compression Device (SCD) *Heparin 5000 units SQ BID 3-4 Higher Order ONE of the following medications: *Heparin 5000 units SQ TID *Enoxaparin/Lovenox 40 mg SQ daily (WT < 150 kg, CrCl > 30 mL/min) *Enoxaparin/Lovenox 30 mg SQ daily (WT < 150 kg, CrCl > 10-29 mL/min) *Enoxaparin/Lovenox 30 mg SQ BID (WT < 150 kg, CrCl > 30 mL/min) AND/OR *Sequential Compression Device (SCD) 5 or more Highest Order ONE of the following medications: *Heparin 5000 units SQ TID (Preferred with Epidurals) *Enoxaparin/Lovenox 40 mg SQ daily (WT < 150 kg, CrCl > 30 mL/min) *Enoxaparin/Lovenox 30 mg SQ daily (WT < 150 kg, CrCl > 10-29 mL/min) *Enoxaparin/Lovenox 30 mg SQ BID (WT < 150 kg, CrCl > 30 mL/min) AND *Sequential Compression Device (SCD) Assessment and Plan - Assessment and Plan Plan: Non-STEMI -Not a candidate for anticoagulation or antiplatelets due to acute GI blood loss -Cardiology consultation appreciated GI bleed -Protonix IV twice daily -IV fluid hydration -N.p.o. -Further per gastroenterology A. fib with RVR -Metoprolol IV every 6 hours for rate control Dyslipidemia -Atorvastatin Depressions -Celexa Peripheral neuropathy -Gabapentin DVT GI prophylaxis -Teds SCDs -No pharmacological DVT prophylaxis due to acute GI bleed -Protonix IV twice daily Critical Care: The total critical care time was 35 minutes. Time to perform other separately billable procedures was not included in the critical care time.
[2018-01-26] MEDS ORDERED: Chlorhexidine Gluconate 2% 1 Pack (2 Cloths) TOPICAL PRN (04:00)
[2018-01-26] MEDS: Pantoprazole Inj 40 MG Vial IV.PUSH SCH ×2 (05:13→17:53)
--- NOTE | 2018-01-26 07:57 | P.CONGI ---
History of Present Illness Consult date: 01/26/18 Consult reason: GIB Chief complaint: NSTEMI, GI bleed History of Present Illness: This is a 82 yo M who presented to the ER last night with complaints of two episodes of chest pressure, since arrival pt has had elevated troponin and was in a-fib RVR, now with a controlled rate. Our service has been consulted to evaluate for GIB, Hemoccult positive stools in the ER. Pt denies any obvious GIB including black tarry stools and BRB in his stool. Denies nausea, vomiting , abdominal pain. States he has not had much of an appetite so he normally eats one meal a day, reports only has a BM every 3-4 days after taking a laxative. Pts last EGD was done [place] [address] Renae which revealed large non-bleeding duodenal bulb ulcer, edematous antral folds with three non-bleeding gastric ulcers, esophageal ulcer with what appears to be benign esophageal stricturing at the GE junction. Pathology (gastric ulcer) active chronic gastritis with features of ulceration, H. Pylori like organisms are present (distal esophagus ulcer) chronic esophagitis with features of reflux esophagitis. Last colonoscopy in 2004, adenomatous polyp. Of note, pt is on Plavix and ASA. He denies ETOH. Smokes 1 PPD. Denies NSAID use. <Alyssa Turner - Last Filed: 01/26/18 11:32> Review of Systems Cardiovascular: Reports chest pain Gastrointestinal: Denies abdominal pain, Denies black, tarry stools, Denies bright, red blood in stools, Denies heartburn, Denies nausea, Denies vomiting <Alyssa Turner - Last Filed: 01/26/18 11:32> [facility] - History History Provided By: Lpn Or Medical Assistant / EMT - Medical History Medical History: Medical History (Last Reviewed 01/26/18 @ 08:37 by Owen Castaneda) Atrial fibrillation Diabetes Heart attack High cholesterol Hypertension Major depressive disorder Stroke - Tobacco History Second Hand Smoke Exposure: No Tobacco Use In Past 30 Days: No Smoking Status: Former smoker - Alcohol History How Often Do You Have a Drink Containing Alcohol: Never - Substance Use History Substance History: No History of Abuse - Travel History Recent Travel in the [place] Within the Last 8 Weeks: No Recent Travel Out of the Country Within the Last 8 Weeks: No - Immunization History Tetanus Immunization: Unsure Hx Influenza Vaccine This Season: No <AugustamahoganyAlyssa - Last Filed: 01/26/18 11:32> - Medical History Medical History: Medical History (Last Reviewed 01/26/18 @ 08:37 by Owen Castaneda) Atrial fibrillation Diabetes Heart attack High cholesterol Hypertension Major depressive disorder Stroke <MalcomJavy rogers - Last Filed: 01/26/18 11:52> Medications and Allergies Active Medications: Active Medications Acetaminophen (Tylenol) 650 mg PO Q4H PRN PRN Reason: Temp > 100.4 Al Hydroxide/Mg Hydroxide (Milk Of Magnesia Liq) 30 ml PO Q12H PRN PRN Reason: Mild Constipation Al Hydroxide/Mg Hydroxide (Milk Of Magnesia Liq) 30 ml PO Q12H PRN PRN Reason: Mild Constipation Albuterol (Duoneb Neb (Prn)) 1 ampul NEB Q2HR NEB PRN PRN Reason: WHEEZING Atorvastatin Calcium (Lipitor) 40 mg PO HS MAL Bisacodyl (Dulcolax Supp) 10 mg RECTAL DAILY PRN PRN Reason: SEVERE CONSITIPATION Chlorhexidine Gluconate (Chlorhexidine 2% Cloth) 3 pack TOPICAL DAILY@0400 MAL Stop: 01/31/18 03:59 Chlorhexidine Gluconate (Chlorhexidine 2% Cloth) 3 pack TOPICAL DAILY@0400 PRN PRN Reason: Extra cloth needed Stop: 01/31/18 03:59 Citalopram Hydrobromide (Celexa) 20 mg PO DAILY MAL Gabapentin (Neurontin) 200 mg PO Q8HR [facility] Last Admin: 01/26/18 01:44 Dose: Not Given Nitroglycerin/Dextrose (Nitroglycerin Drip Premix) 50 mg in 250 mls @ 0 mls/hr IV.CONT TITRATE PRN; Protocol PRN Reason: Per Protocol Last Titration: 01/25/18 22:34 Dose: 10 mcg/min, 3 mls/hr Pantoprazole Sodium 80 mg/ (Sodium Chloride) 100 mls @ 10 mls/hr IV.CONT CONT MAL Last Admin: 01/26/18 01:45 Dose: 10 mls/hr Sodium Chloride (Ns Inj) 250 mls @ 15 mls/hr IV.SIG ONCE MAL Stop: 01/26/18 14:39 Last Admin: 01/26/18 01:00 Dose: Not Given Sodium Chloride (Ns Inj) 1,000 mls @ 88 mls/hr IV.CONT .[id number] [facility] Stop: 01/26/18 08:51 Lactulose (Lactulose Liq) 30 ml PO DAILY PRN PRN Reason: SEVERE CONSITIPATION Melatonin (Melatonin) 5 mg PO HS [facility] Metoclopramide HCl (Reglan Inj) 5 mg IV.PUSH Q6HR PRN; Protocol PRN Reason: NAUSEA OR VOMITING Metoprolol Tartrate (Lopressor Inj) 2.5 mg IV.PUSH Q6H [facility] Morphine Sulfate (Morphine Inj) 2 mg IV.PUSH Q4H PRN PRN Reason: Acute Pain Ondansetron HCl (Zofran Odt) 4 mg PO Q6H PRN PRN Reason: NAUSEA OR VOMITING Pantoprazole Sodium (Protonix Inj) 40 mg IV.PUSH Q12H [facility] Last Admin: 01/26/18 05:13 Dose: Not Given Senna/Docusate Sodium (Sandra-Colace) 1 tab PO BID [facility] Sennosides (Senokot) 17.2 mg PO Q12H PRN PRN Reason: Moderate Constipation Sodium Chloride (Ns Flush) 2 ml IV.FLUSH UNSCH PRN PRN Reason: FLUSH AFTER USING IV ACCESS Sodium Chloride (Ns Flush) 2 ml IV.FLUSH BID [facility] Sodium Chloride (Ns Flush) 2 ml IV.FLUSH PRN PRN PRN Reason: FLUSH AFTER USING IV ACCESS <Alyssa Turner - Last Filed: 01/26/18 11:32> Active Medications: Active Medications Acetaminophen (Tylenol) 650 mg PO Q4H PRN PRN Reason: Temp > 100.4 Al Hydroxide/Mg Hydroxide (Milk Of Magnesia Liq) 30 ml PO Q12H PRN PRN Reason: Mild Constipation Al Hydroxide/Mg Hydroxide (Milk Of Magnesia Liq) 30 ml PO Q12H PRN PRN Reason: Mild Constipation Albuterol (Duoneb Neb (Prn)) 1 ampul NEB Q2HR NEB PRN PRN Reason: WHEEZING Atorvastatin Calcium (Lipitor) 40 mg PO HS [facility] Bisacodyl (Dulcolax Supp) 10 mg RECTAL DAILY PRN PRN Reason: SEVERE CONSITIPATION Chlorhexidine Gluconate (Chlorhexidine 2% Cloth) 3 pack TOPICAL DAILY@0400 [facility] Stop: 01/31/18 03:59 Chlorhexidine Gluconate (Chlorhexidine 2% Cloth) 3 pack TOPICAL DAILY@0400 PRN PRN Reason: Extra cloth needed Stop: 01/31/18 03:59 Citalopram Hydrobromide (Celexa) 20 mg PO DAILY [facility] Last Admin: 01/26/18 08:45 Dose: Not Given Gabapentin (Neurontin) 200 mg PO Q8HR [facility] Last Admin: 01/26/18 08:45 Dose: 200 mg Nitroglycerin/Dextrose (Nitroglycerin Drip Premix) 50 mg in 250 mls @ 0 mls/hr IV.CONT TITRATE PRN; Protocol PRN Reason: Per Protocol Last Titration: 01/25/18 22:34 Dose: 10 mcg/min, 3 mls/hr Pantoprazole Sodium 80 mg/ (Sodium Chloride) 100 mls @ 10 mls/hr IV.CONT CONT [facility] Last Admin: 01/26/18 01:45 Dose: 10 mls/hr Sodium Chloride (Ns Inj) 250 mls @ 15 mls/hr IV.SIG ONCE [facility] Stop: 01/26/18 14:39 Last Admin: 01/26/18 01:00 Dose: Not Given Sodium Chloride (Ns Inj) 1,000 mls @ 100 mls/hr IV.SIG .Q10H [facility] Last Admin: 01/26/18 09:50 Dose: 100 mls/hr Lactulose (Lactulose Liq) 30 ml PO DAILY PRN PRN Reason: SEVERE CONSITIPATION Melatonin (Melatonin) [address] [facility] Metoclopramide HCl (Reglan Inj) 5 mg IV.PUSH Q6HR PRN; Protocol PRN Reason: NAUSEA OR VOMITING Metoprolol Tartrate (Lopressor Inj) 2.5 mg IV.PUSH Q6H [facility] Last Admin: 01/26/18 08:45 Dose: 2.5 mg Morphine Sulfate (Morphine Inj) 2 mg IV.PUSH Q4H PRN PRN Reason: Acute Pain Ondansetron HCl (Zofran Odt) 4 mg PO Q6H PRN PRN Reason: NAUSEA OR VOMITING Pantoprazole Sodium (Protonix Inj) 40 mg IV.PUSH Q12H [facility] Last Admin: 01/26/18 05:13 Dose: Not Given Senna/Docusate Sodium (Sandra-Colace) 1 tab PO BID [facility] Last Admin: 01/26/18 08:45 Dose: Not Given Sennosides (Senokot) 17.2 mg PO Q12H PRN PRN Reason: Moderate Constipation Sodium Chloride (Ns Flush) 2 ml IV.FLUSH UNSCH PRN PRN Reason: FLUSH AFTER USING IV ACCESS Sodium Chloride (Ns Flush) 2 ml IV.FLUSH BID [facility] Last Admin: 01/26/18 08:45 Dose: Not Given Sodium Chloride (Ns Flush) 2 ml IV.FLUSH PRN PRN PRN Reason: FLUSH AFTER USING IV ACCESS <Hemaidan,Ammar - Last Filed: 01/26/18 11:52> Allergies Allergy/AdvReac Type Severity Reaction Status Date / Time No Known Allergies Allergy Verified 01/01/18 14:05 Exam Vital signs: Vital Signs 01/25/18 19:49 01/25/18 20:02 01/25/18 20:30 Temperature 98.8 F 98.8 F Pulse Rate 88 90 Respiratory Rate 18 18 Blood Pressure 120/58 L 121/58 L Pulse Oximetry 99 99 98 01/25/18 21:44 01/26/18 00:28 01/26/18 00:40 Temperature 97.8 F 97.7 F Pulse Rate 95 H 91 H 109 H Respiratory Rate 20 16 16 Blood Pressure 137/62 156/65 H 136/59 L Pulse Oximetry 95 98 01/26/18 00:58 01/26/18 02:55 01/26/18 02:56 Temperature 97.8 F 97.9 F 97.9 F Pulse Rate 105 H 112 H 105 H Respiratory Rate 16 16 16 Blood Pressure 106/50 L 109/57 L 109/57 L Pulse Oximetry 98 01/26/18 04:00 01/26/18 05:02 Temperature Pulse Rate 110 H 108 H Respiratory Rate 16 16 Blood Pressure 137/71 116/69 Pulse Oximetry 98 98 Intake & Output 01/25/18 01/26/18 01/26/18 18:59 06:59 18:59 Intake Total 800 / 800 Balance 800 / 800 Weight 83.915 kg Intake: IV 0 / 0 Nitroglycerin Drip Premix 50 mg 0 / 0 In 250 ml @ Per Protocol IV. CONT TITRATE PRN Rx#:[id number] Intake (Blood Product) Amt 800 / 800 Rbc As-3 Leukoreduced Unit 400 / 400 [id number] Rbc As-3 Leukoreduced Unit 400 / 400 [id number] Other: # Voids 100 # Urine Diapers 2 - Constitutional no acute distress - Routine HEENT Exam Head: Present: normocephalic, atraumatic - Routine Respiratory Exam Absent: accessory muscle use - Routine Cardiovascular Exam Present: irregularly irregular - Routine Abdominal Exam Present: soft, normoactive bowel sounds. Absent: tenderness - Routine Skin Exam Present: dry, warm - Routine Neurological Exam Present: alert, oriented X3 <Alyssa Turner - Last Filed: 01/26/18 11:32> Vital signs: Vital Signs 01/25/18 19:49 01/25/18 20:02 01/25/18 20:30 Temperature 98.8 F 98.8 F Pulse Rate 88 90 Respiratory Rate 18 18 Blood Pressure 120/58 L 121/58 L Pulse Oximetry 99 99 98 01/25/18 20:33 01/25/18 21:44 01/26/18 00:28 Temperature 97.8 F Pulse Rate 97 H 95 H 91 H Respiratory Rate 16 20 16 Blood Pressure 114/56 L 137/62 156/65 H Pulse Oximetry 98 95 01/26/18 00:40 01/26/18 00:58 01/26/18 02:55 Temperature 97.7 F 97.8 F 97.9 F Pulse Rate 109 H 105 H 112 H Respiratory Rate 16 16 16 Blood Pressure 136/59 L 106/50 L 109/57 L Pulse Oximetry 98 98 01/26/18 02:56 01/26/18 04:00 01/26/18 05:02 Temperature 97.9 F Pulse Rate 105 H 110 H 108 H Respiratory Rate 16 16 16 Blood Pressure 109/57 L 137/71 116/69 Pulse Oximetry 98 98 01/26/18 08:05 Temperature Pulse Rate 111 H Respiratory Rate 20 Blood Pressure 112/88 Pulse Oximetry 98 Intake & Output 01/25/18 01/26/18 01/26/18 18:59 06:59 18:59 Intake Total 800 / 800 Balance 800 / 800 Weight 83.915 kg Intake: IV 0 / 0 Nitroglycerin Drip Premix 50 mg 0 / 0 In 250 ml @ Per Protocol IV. CONT TITRATE PRN Rx#:[id number] Intake (Blood Product) Amt 800 / 800 Rbc As-3 Leukoreduced Unit 400 / 400 [id number] Rbc As-3 Leukoreduced Unit 400 / 400 [id number] Other: # Voids 100 # Urine Diapers 2 <Javy Mcdonald - Last Filed: 01/26/18 11:52> Results - Labs CBC & Chem 7: 01/26/18 05:18 01/25/18 20:07 Labs: Laboratory Results - last 24 hr 01/25/18 01/25/18 01/25/18 20:07 20:07 20:07 WBC 14.6 H RBC 2.45 L Hgb 7.4 L Hct 20.4 L* MCV 83.4 MCH 30.2 MCHC 36.2 H RDW 17.9 H Plt Count 413 MPV 9.5 Prelim Diff (Auto) Slide review pending Neut % (Auto) 86.0 H Lymph % (Auto) 6.1 L Chaves % (Auto) 6.2 Eos % (Auto) 0.4 Baso % (Auto) 1.3 Neut # (Auto) 12.5 H Lymph # (Auto) 0.9 L Chaves # (Auto) 0.9 Eos # (Auto) 0.1 Baso # (Auto) 0.2 WBC Differential Manual diff final Seg Neuts % (Manual) 84 H Band Neuts % (Manual) 6 Lymphocytes % (Manual) 4 L Monocytes % (Manual) 5 Basophils % (Manual) 1 Abs Neuts (Manual) 13.1 H Differential Comment . Toxic Granulation 2+ H Platelet Estimate Normal Platelet Morphology Normal Tear Drop Cells 1+ H Ovalocytes 2+ H Acanthocytes (Spur) Occ H PT 11.2 INR 1.1 APTT 23.6 L Sodium 138 Potassium 3.4 L Chloride 106 Carbon Dioxide 20.2 L Anion Gap 12 BUN 36 H Creatinine 0.90 Estimated GFR 81 L Random Glucose 175 H Calcium 8.4 L Magnesium 1.9 Total Creatine Kinase 43 Troponin I 0.22 H B-Natriuretic Peptide Blood Type Blood Type Recheck Antibody Screen MTS Gel Crossmatch 01/25/18 01/25/18 01/25/18 20:07 21:09 21:09 WBC RBC Hgb Hct MCV MCH MCHC RDW Plt Count MPV Prelim Diff (Auto) Neut % (Auto) Lymph % (Auto) Chaves % (Auto) Eos % (Auto) Baso % (Auto) Neut # (Auto) Lymph # (Auto) Chaves # (Auto) Eos # (Auto) Baso # (Auto) WBC Differential Seg Neuts % (Manual) Band Neuts % (Manual) Lymphocytes % (Manual) Monocytes % (Manual) Basophils % (Manual) Abs Neuts (Manual) Differential Comment Toxic Granulation Platelet Estimate Platelet Morphology Tear Drop Cells Ovalocytes Acanthocytes (Spur) PT INR APTT Sodium Potassium Chloride Carbon Dioxide Anion Gap BUN Creatinine Estimated GFR Random Glucose Calcium Magnesium Total Creatine Kinase Troponin I B-Natriuretic Peptide 418 H Blood Type A Positive Blood Type Recheck Not needed Antibody Screen Negative MTS Gel Crossmatch See Detail 01/26/18 01/26/18 02:38 05:18 WBC RBC Hgb 10.0 L D Hct 30.0 L MCV MCH MCHC RDW Plt Count MPV Prelim Diff (Auto) Neut % (Auto) Lymph % (Auto) Chaves % (Auto) Eos % (Auto) Baso % (Auto) Neut # (Auto) Lymph # (Auto) Chaves # (Auto) Eos # (Auto) Baso # (Auto) WBC Differential Seg Neuts % (Manual) Band Neuts % (Manual) Lymphocytes % (Manual) Monocytes % (Manual) Basophils % (Manual) Abs Neuts (Manual) Differential Comment Toxic Granulation Platelet Estimate Platelet Morphology Tear Drop Cells Ovalocytes Acanthocytes (Spur) PT INR APTT Sodium Potassium Chloride Carbon Dioxide Anion Gap BUN Creatinine Estimated GFR Random Glucose Calcium Magnesium Total Creatine Kinase Troponin I 0.73 H* B-Natriuretic Peptide Blood Type Blood Type Recheck Antibody Screen MTS Gel Crossmatch - Imaging Impressions Chest X-Ray 01/25/18 19:58 CONCLUSION: No acute abnormality is seen. <Alyssa Turner - Last Filed: 01/26/18 11:32> - Labs CBC & Chem 7: 01/26/18 05:18 01/25/18 20:07 Labs: Laboratory Results - last 24 hr 01/25/18 01/25/18 01/25/18 20:07 20:07 20:07 WBC 14.6 H RBC 2.45 L Hgb 7.4 L Hct 20.4 L* MCV 83.4 MCH 30.2 MCHC 36.2 H RDW 17.9 H Plt Count 413 MPV 9.5 Prelim Diff (Auto) Slide review pending Neut % (Auto) 86.0 H Lymph % (Auto) 6.1 L Chaves % (Auto) 6.2 Eos % (Auto) 0.4 Baso % (Auto) 1.3 Neut # (Auto) 12.5 H Lymph # (Auto) 0.9 L Chaves # (Auto) 0.9 Eos # (Auto) 0.1 Baso # (Auto) 0.2 WBC Differential Manual diff final Seg Neuts % (Manual) 84 H Band Neuts % (Manual) 6 Lymphocytes % (Manual) 4 L Monocytes % (Manual) 5 Basophils % (Manual) 1 Abs Neuts (Manual) 13.1 H Differential Comment . Toxic Granulation 2+ H Platelet Estimate Normal Platelet Morphology Normal Tear Drop Cells 1+ H Ovalocytes 2+ H Acanthocytes (Spur) Occ H PT 11.2 INR 1.1 APTT 23.6 L Sodium 138 Potassium 3.4 L Chloride 106 Carbon Dioxide 20.2 L Anion Gap 12 BUN 36 H Creatinine 0.90 Estimated GFR 81 L Random Glucose 175 H Calcium 8.4 L Magnesium 1.9 Total Creatine Kinase 43 Troponin I 0.22 H B-Natriuretic Peptide Blood Type Blood Type Recheck Antibody Screen MTS Gel Crossmatch 01/25/18 01/25/18 01/25/18 20:07 21:09 21:09 WBC RBC Hgb Hct MCV MCH MCHC RDW Plt Count MPV Prelim Diff (Auto) Neut % (Auto) Lymph % (Auto) Chaves % (Auto) Eos % (Auto) Baso % (Auto) Neut # (Auto) Lymph # (Auto) Chaves # (Auto) Eos # (Auto) Baso # (Auto) WBC Differential Seg Neuts % (Manual) Band Neuts % (Manual) Lymphocytes % (Manual) Monocytes % (Manual) Basophils % (Manual) Abs Neuts (Manual) Differential Comment Toxic Granulation Platelet Estimate Platelet Morphology Tear Drop Cells Ovalocytes Acanthocytes (Spur) PT INR APTT Sodium Potassium Chloride Carbon Dioxide Anion Gap BUN Creatinine Estimated GFR Random Glucose Calcium Magnesium Total Creatine Kinase Troponin I B-Natriuretic Peptide 418 H Blood Type A Positive Blood Type Recheck Not needed Antibody Screen Negative MTS Gel Crossmatch See Detail 01/26/18 01/26/18 01/26/18 02:38 05:18 08:45 WBC RBC Hgb 10.0 L D Hct 30.0 L MCV MCH MCHC RDW Plt Count MPV Prelim Diff (Auto) Neut % (Auto) Lymph % (Auto) Chaves % (Auto) Eos % (Auto) Baso % (Auto) Neut # (Auto) Lymph # (Auto) Chaves # (Auto) Eos # (Auto) Baso # (Auto) WBC Differential Seg Neuts % (Manual) Band Neuts % (Manual) Lymphocytes % (Manual) Monocytes % (Manual) Basophils % (Manual) Abs Neuts (Manual) Differential Comment Toxic Granulation Platelet Estimate Platelet Morphology Tear Drop Cells Ovalocytes Acanthocytes (Spur) PT INR APTT Sodium Potassium Chloride Carbon Dioxide Anion Gap BUN Creatinine Estimated GFR Random Glucose Calcium Magnesium Total Creatine Kinase Troponin I 0.73 H* 3.15 H* B-Natriuretic Peptide Blood Type Blood Type Recheck Antibody Screen MTS Gel Crossmatch 01/26/18 09:47 WBC RBC Hgb Hct MCV MCH MCHC RDW Plt Count MPV Prelim Diff (Auto) Neut % (Auto) Lymph % (Auto) Chaves % (Auto) Eos % (Auto) Baso % (Auto) Neut # (Auto) Lymph # (Auto) Chaves # (Auto) Eos # (Auto) Baso # (Auto) WBC Differential Seg Neuts % (Manual) Band Neuts % (Manual) Lymphocytes % (Manual) Monocytes % (Manual) Basophils % (Manual) Abs Neuts (Manual) Differential Comment Toxic Granulation Platelet Estimate Platelet Morphology Tear Drop Cells Ovalocytes Acanthocytes (Spur) PT INR APTT Sodium Potassium Chloride Carbon Dioxide Anion Gap BUN Creatinine Estimated GFR Random Glucose Calcium Magnesium Total Creatine Kinase Troponin I 3.36 H* B-Natriuretic Peptide Blood Type Blood Type Recheck Antibody Screen MTS Gel Crossmatch - Imaging Impressions Chest X-Ray 01/25/18 19:58 CONCLUSION: No acute abnormality is seen. <Javy Mcdonald - Last Filed: 01/26/18 11:52> Assessment and Plan - Plan Assessment: - Anemia with Hemoccult positive stools and history of gastric, esophageal and duodenal ulcers- On admission H/H 7.4/20.4 now S/P 2 U PRBCs Pt denies any obvious GIB including black tarry stools and BRB in his stool. Denies nausea, vomiting, abdominal pain. States he has not had much of an appetite so he normally eats one meal a day, reports only has a BM every 3-4 days after taking a laxative. EGD [place] done [place] [address] Renae which revealed large non-bleeding duodenal bulb ulcer, edematous antral folds with three non-bleeding gastric ulcers, esophageal ulcer with what appears to be benign esophageal stricturing at the GE junction. Pathology (gastric ulcer) active chronic gastritis with features of ulceration, H. Pylori like organisms are present ( distal esophagus ulcer) chronic esophagitis with features of reflux esophagitis. Colonoscopy in 2004, adenomatous polyp. Of note, pt is on Plavix and ASA. He denies ETOH. Smokes 1 PPD. Denies NSAID use. - NSTEMI- elevated troponin- was in a-fib RVR now rate controlled - cardiology technical healthcare consultant recommended conservative management due to acute GIB- pending cardiology consult this morning EGD cancelled by anesthesia, will continue to monitor H/H closely and manage medically until pt is stable Plan: EGD pending cardiology clearance Obtain consent Keep NPO Protonix gtt Monitor H/H Further recommendations based on clinical course Pt has been seen and examined by myself and Dr. Mcdonald and this note is written on his behalf <Alyssa Turner - Last Filed: 01/26/18 11:32> - Plan Patient was seen and examined, the patient is having acute AR, severe elevation of his troponin, anemia could be exacerbating that, patient denies any black stool no sign of active bleeding no hematemesis no GI symptom he had a history of peptic ulcer many years ago and he does not remember details. The plan was to perform an upper endoscopy per Dr. Ray recommendation to make sure that he does not have an active bleeding ulcer by the anesthesia feel that the patient is having an acute AR at this time and feel that it is ultra indicated to put the patient sedated the patient so the procedure will not be done at this point, will treat the patient with PPI, will continue monitoring hemoglobin and give him packed RBC as needed, I contacted Dr. Ray and informed him about the anesthesia decision and he said he will see the patient and evaluate him, patient will continue on supportive care from GI perspective and we will wait for anesthesia and cardiology for final plan to when we can perform the endoscopy <Javy Mcdonald - Last Filed: 01/26/18 11:52>
[2018-01-26] MEDS: Citalopram 20 MG Tablet PO SCH (08:45)
[2018-01-26] MEDS: Metoprolol Inj 5 MG/5 ML Vial IV.PUSH SCH ×3 (08:45→21:20)
[2018-01-26] MEDS: Senna/Docusate Sodium 8.6/50 MG Tablet PO SCH ×2 (08:45→21:22)
[2018-01-26] MEDS: Sod Chloride 0.9% Inj 1,000 ML IV.SIG SCH (09:50)
[2018-01-26] MEDS ORDERED: Heparin/NS PF Inj 500 ML ONE (14:27)
[2018-01-26] MEDS ORDERED: Adenosine Stress Test 90 MG/30 ML Vial IV.SIG ONE (14:27)
[2018-01-26] MEDS ORDERED: fentaNYL Citrate Inj 100 MCG/2 ML Ampul ONE (14:28)
--- NOTE | 2018-01-26 15:35 | CATHPROC ---
[employer] HIS Report Study Information Study Number Admission Scheduled Start Study Start [id number] Jan 25 2018 9:24PM 01/26/2018 Jan 26 2018 2:29PM [place] Service Cardiac Pacer/ICD Admit Source Facility Department Emergency department [facility] - Human Resources Trainee Physician and Clinical Staff Initial MD Ray, Mendez Finance Leadpeter Grubbs RN, Caren Witt,RT(R) (BS) Patricio Benoit,RT(R) Procedures Performed Procedure Location (Site) Vessel Name Coronary Angiograms RCA Right Coronary Coronary Angiograms Gft. Stump 1 SVG Graft Coronary Angiograms Gft. Stump 2 SVG Graft L Heart Cath LV Gram-hand inj. LV LV Ventricle Equipment Time Pre Planning Advisor Description Size Mfg Part Number Used/Scraped TRANSDUCER, TRUWAVE [id number] 14:36 PAREDES SALEEM * Used W/STOCKCOCK *[id number] [id number] *[id number] *[id number] *[id number] 14:36 what3words BLANKET,WARM AIR CCL * Used *[id number] 14:36 what3words PACK, CCL CUSTOM * Used *[id number] 14:36 [employer] PACER PEN, SKIN DUAL W/ RULER * Used *[id number] 14:36 TITIN Tech WIRE, 3MMJ .035 180CM 180CM Used *[id number] 14:36 NAMIC MANIFOLD, 4 PORT * Used *[id number] 14:36 NYCOMED OMNIPAQUE, 350 MG, 150ML 150ML [id number] Used [id number] 14:36 [place] MR PhotoelectricityUMO MEDICAL SHEATH, FR4 TERUMO (10CM) FR 4 Used *[id number] History: Allergies Allergy Reaction No Known Allergies History: Risk Factors Family History of Hypertension Dyslipidemia Previous HI Previous Heart Failure Premature CAD Yes Yes No Yes No Prior Valve Prior PCI Prior PCIDate Prior CABG Surgery No Yes 01/02/2006 No Cerebrovascular Peripheral Artery Chronic Lung On Dialysis Diabetes Disease Disease Disease No Yes No No No History: Symptoms/Diagnosis Selection Items Chest pain History: Stress Tests Stress or Imaging Studies Performed No History: Other Current Smoker Method Packs a Day Years Used Pack Years Yes Cigarettes 1 65 65 Labs Hgb (g/dl) Hct (%) WBC (l/cumm) Platelets (thousands) 11.60-17.00 35.00-51.00 4.00-11.00 150.00-450.00 10.0 30.3 14.6 413 Glucose (mg/dl) BUN (mg/dl) Creatinine (mg/dl) BUN:Creatinine (1:x) 74.00-106.00 7.00-18.00 0.50-1.30 10.00-20.00 175 36 0.9 40 Na (meq/l) K (meq/l) 136.00-145.00 3.50-5.10 138 3.4 INR (PTT:PT) 0.90-1.10 1.1 Troponin I (ng/ml) CPK-MB (ng/ML) 0.02-0.05 0.50-3.60 3.15 Not Drawn Medication Medication Total Dose (Bolus/Oral) Medication Total Dosage/Unit 1% XYLOCAINE 20 mL Medications (Bolus/Oral) Medication Time Given Dosage/Unit Administered By Reason 1% XYLOCAINE 01/26/2018 2:50:37 PM 20 mL Mendez Ray 20 mL 1% XYLOCAINE given in lab by Mendez Ray in Right Groin via Subcutaneous. Medication (Drip) Medication Time Given Dosage/Unit Concentration/Unit Diluent (ml) Solutio n IV Solutions 01/26/2018 2:29:50 PM 0 mL (IV) 1000 NaCl .9 Patient arrived on IV Solutions in Left Antecubital via Peripheral IV. Pump/Drip Flow = 100 ml/hr usi ng NaCl .9. Initial Case Assessment Cardiovascular HR Rhythm NIBP Chest Pain 118 a-fib 124/77 0 Edema Present Skin color Skin None Normal Warm Dry Circulatory - Right Pulses Dorsalis Pedis Femoral 1 1 Scale (0,1,2,3,4,d) Circulatory - Left Pulses Dorsalis Pedis Femoral 1 1 Scale (0,1,2,3,4,d) Circulatory - Lower Extremities Color Lower Right Color Lower Left Normal Normal Neurological State Oriented to time-place- Alert Moves all extremities person Respiration - General Respiration Rate SpO2 (%) (B/min) 20 97 Chronological Log Time Study Chronological Log 14:24:26 Patient arrived via Bed. 14:24:35 Patient Name, D.O.B, / Armband Verified By R.N. 14:29:39 Consent signed by the physician and the patient and verified by the Human Resources Trainee staff. 14:29:39 Pre-op and post- op instructions given; patient acknowledges understanding of instructions. 14:29:41 Presedation assessment performed by Human Resources Trainee RN. 14:29:44 Patient has been NPO for More than 6Hrs. 14:29:46 Patient Warmer Placed on the Table. 14:29:48 Chelsea Prominences Protected 14:29:49 A # 20 IV was noted in the Antecubital (left). Grade = 0 14:29:50 Patient arrived on IV Solutions in Left Antecubital via Peripheral IV. Pump/Drip Flow = 100 ml/hr using NaCl .9. 14:29:52 History and physical on the chart or being dictated. Assessment: Initial Case, WI=765 BPM, Rhythm=a-fib, ASWC=093/77 mmhg, Chest Pain=0, Edema=None, Color=Normal, Skin = Warm, Dry Right Pulses: Rafa Ped=1, Femoral=1 Left Pulses: Rafa Ped=1, Femoral=1 14:29:56 Lower Right Extremities: Color=Normal Lower Left Extremities: Color=Normal Neurological: State=Alert, Ox3, SAHU Respiration: Resp=20 B/min, SpO2=97 % Vitals capture started with the following parameters, Patient=Adult, Interval=5 min, Initial Pr yxaowa=658 mmHg, 14:30:11 Deflation Rate=5 mmHg, Cuff placed on Left Arm 14:30:47 GXPQ=311/77 mmhg, SpO2=96.0 %, Pain=0, Donna=10, Blue=2 14:35:44 TV=324 bpm, CUOC=852/73 mmhg, SpO2=96.0 %, Resp=16 B/min, Pain=0, Donna=10, Blue=2 14:40:41 PT=145 bpm, VTCF=498/83 mmhg, SpO2=97.0 %, Resp=20 B/min, Pain=0, Donna=10, Blue=2 14:40:45 Reference ECG taken 14:45:44 HN=187 bpm, VVEW=799/79 mmhg, SpO2=97.0 %, Resp=20 B/min, Pain=0, Donna=10, Blue=2 14:47:07 Pressure channel 1 zeroed. Time Out. Correct patient, correct procedure, correct physician, labs, allergies, and equipment verified with crime lab technician 14:50:14 team present. Fire risk assesment completed (see hard stop sheet for coding). Time Out Conc urred by MD and individual staff in procedure. 14:50:32 Case Start 14:50:37 20 mL 1% XYLOCAINE given in lab by Mendez Ray in Right Groin via Subcutaneous. 14:50:43 GD=899 bpm, JXJZ=516/66 mmhg, SpO2=97.0 %, Resp=12 B/min, Pain=0, Donna=10, Blue=2 14:53:01 Access site was Right Femoral Artery. 14:53:13 A SHEATH, FR4 TERUMO (10CM) FR 4 was advanced into the Fem Art (right) using the Percutaneo us technique. A JR 4.0 INFINITI CATHETER FR 4 was advanced over a wire. OMNIPAQUE, 350 MG, 150ML 150ML was us ed for 14:54:06 injections. 14:55:40 DI=328 bpm, EAKP=175/80 mmhg, SpO2=96.0 %, Resp=19 B/min, Pain=0, Donna=10, Blue=2 Recorded Pressure: LV, LW=442, Condition=Condition 1 14:55:55 (Left Ventricle) LV 135/3/13 14:56:00 The LV was manually injected with 8 cc's and visualized. OMNIPAQUE, 350 MG, 150ML 150ML use d. Recorded Pressure: LV, Ao, HQ=434, Condition=Condition 1 14:56:25 (Left Ventricle) LV 141/9/18, (Aorta) Ao 140/58/95 14:57:27 The RCA was injected and visualized at various angles. OMNIPAQUE, 350 MG, 150ML 150ML used . Recorded Pressure: Ao, NK=810, Condition=Condition 1 14:58:43 (Aorta) Ao 128/61/92 14:59:10 The Gft. Stump 1 was injected and visualized at various angles. OMNIPAQUE, 350 MG, 150ML 15 0ML used. 14:59:48 The Gft. Stump 2 was injected and visualized at various angles. OMNIPAQUE, 350 MG, 150ML 15 0ML used. 15:00:41 WM=006 bpm, CKPK=514/77 mmhg, SpO2=96.0 %, Resp=17 B/min, Pain=0, Donna=10, Blue=2 15:02:03 Catheter was removed A JL 5.0 INFINITI CATHETER FR 4 was advanced over a wire. OMNIPAQUE, 350 MG, 150ML 150ML was u sed for 15:02:05 injections. A JL 5.0 INFINITI CATHETER FR 4 was advanced over a wire. OMNIPAQUE, 350 MG, 150ML 150ML was u sed for 15:02:45 injections. 15:05:40 JV=428 bpm, OVNO=278/81 mmhg, SpO2=97.0 %, Resp=19 B/min 15:06:40 Catheter was removed 15:06:43 Case End (Physician broke scrub) 15:10:45 PB=557 bpm, CPJF=692/76 mmhg, SpO2=96.0 %, Resp=23 B/min, Pain=0, Donna=10, Blue=2 15:15:48 DC=557 bpm, UOTU=362/80 mmhg, SpO2=97.0 %, Resp=21 B/min, Pain=0, Donna=10, Blue=2 15:16:30 Catheter(s) removed without difficulty 15:16:33 Sheath removed; pressure applied to access site. 15:16:54 No case complications noted. 15:17:26 Bedside Report will be given. 15:17:29 A Left Heart Cath was performed. 15:20:03 CVIVU called. Spoke to Dunia. 15:20:45 FD=984 bpm, IXIG=722/88 mmhg, SpO2=96.0 %, Resp=20 B/min, Pain=0, Donna=10, Blue=2 15:25:48 HH=381 bpm, CVFI=425/81 mmhg, SpO2=94.0 %, Resp=18 B/min, Pain=0, Donna=10, Blue=2 15:30:45 IZ=948 bpm, WMIU=464/80 mmhg, SpO2=95.0 %, Resp=18 B/min, Pain=0, Donna=10, Blue=2 15:31:23 Sterile dressing applied to site 15:32:04 Vitals capture stopped. End Study - Contrast Media Used In Study Contrast Total Opened (mL) Total Used (mL) Total Wasted (mL) Omnipaque 90 90 0 End Study - Maximum Contrast Load Max Contrast Load (mL) 466.2 End Study - Radiation Exposure Fluoro Time (minutes) 4.6 End Study - Sheaths Sheaths Pulled By Sheath Hold Time (min) Patricio Queen End Study - Patient Disposition Complications Transferred To Interventional Outcome No Critical Care Bed No attempt made
--- NOTE | 2018-01-26 16:57 | MB ---
cc: Mendez Ray MD DATE: 01/25/2018 HISTORY OF PRESENT ILLNESS: Felix is an 82-year-old gentleman with history of coronary artery disease, status post CABG in 2004, history of peptic ulcer disease, presents with a chief complaint of left-sided substernal chest pain, initially relieved with nitroglycerin in the ER. When I saw him, he was still having severe chest pain. Initial EKG showed no significant ischemia; however, repeat EKG showed a change with 1-[address] segment depression in the anterolateral leads. He denies shortness of breath, nausea, vomiting, dizziness, headache. PAST MEDICAL HISTORY: He has a history of atrial fibrillation, diabetes, myocardial infarction, hypertension, hyperlipidemia, depression, CVA. SOCIAL HISTORY: He is a former smoker. He never drank alcohol. ALLERGIES: NONE. MEDICATIONS: 1. Lipitor 40 at bedtime. 2. Gabapentin 200 mg q.8 hours. 3. Melatonin 5 mg at bedtime. 4. Pantoprazole 80 mg IV. PHYSICAL EXAMINATION: VITAL SIGNS: Blood pressure 137/62, pulse 95, respiratory rate 20, temperature 98.8, and sats 95% on nasal cannula. GENERAL: He is alert and oriented x3, in moderate distress. NECK: Supple. No JVD. No bruit. CARDIOVASCULAR: S1, S2. No murmurs, rubs, gallops. LUNGS: Clear to auscultation bilaterally. ABDOMEN: Soft, nontender, nondistended with positive bowel sounds. EXTREMITIES: Lower extremity edema. LABORATORY DATA: White count 14.6, hemoglobin 7.4, hematocrit 20.4, platelet count 413. INR is 1.1. Sodium 138, potassium 3.4, chloride 106, bicarbonate 20.2, BUN 36, creatinine 0.90. BNP is 418, troponin 0.22. Magnesium 1.9. Chest x-ray: No acute abnormality seen. EKG initially normal sinus rhythm at 92 beats per minute, nonspecific ST-T wave changes. FINAL DIAGNOSES: 1. Kkm-LV-sriullvcz myocardial infarction. 2. CABG. 3. Anemia. 4. History of peptic ulcer disease. 5. Elevated white count. 6. Hypokalemia. 7. Decompensated congestive heart failure. DISCUSSION: At this point in time, to determine whether the patient has a primary obstructive etiology to his elevated troponin and chest pain and/or the presence of anemia, obviously he has a treatment dilemma given his severe anemia and it will be difficult to aggressively anticoagulate him. I will try to transfuse him with 2 units of blood initially, see how he responds, treat him with p.r.n. nitroglycerin and morphine to control his pain. Continue Lipitor; currently his Plavix and aspirin are being held. We will need to follow trends in troponin, chest pain and hemodynamics. MD TANVI Zabala/candida/tamia , 11:02 PM , 11:53 PM
[2018-01-26] MEDS ORDERED: Iohexol 350 MG/ML 100 ML Vial (for Cath Lab) IVCONTRAST ONE (17:56)
--- NOTE | 2018-01-26 18:39 | ECG ---
Date Performed: 01/26/2018 Time Performed: 03:11:42 PTAGE: 82 years EKG: ATRIAL FIBRILLATION NONSPECIFIC ST & T-WAVE ABNORMALITY ABNORMAL ECG PREVIOUS TRACING : 01/25/2018 20.26 Compared to previous tracing, SR no longer present DOCTOR: Arcenio Rivas Interpretating Date/Time 01/26/2018 18:39:25
--- NOTE | 2018-01-26 18:51 | ECG ---
Date Performed: 01/25/2018 Time Performed: 20:26:58 PTAGE: 82 years EKG: SINUS TACHYCARDIA ST DEVIATION AND MODERATE T-WAVE ABNORMALITY ABNORMAL ECG Compared to PREVIOUS TRACING , ST changes more prominent DOCTOR: Arcenio Rivas Interpretating Date/Time 01/26/2018 18:50:51
--- NOTE | 2018-01-26 18:55 | ECG ---
Date Performed: 01/25/2018 Time Performed: 19:53:30 PTAGE: 82 years EKG: Sinus rhythm NONSPECIFIC ST & T-WAVE ABNORMALITY ABNORMAL ECG Since the PREVIOUS TRACING , no significant change noted DOCTOR: Arcenio Rivas Interpretating Date/Time 01/26/2018 18:53:09
--- NOTE | 2018-01-26 20:24 | US ---
EXAM DATE: 01/26/2018 8:12 PM EDT AGE/SEX: 82 years / Male INDICATIONS: Carotid stenosis. CLINICAL DATA: This is the patient's initial encounter. Patient reports that signs and symptoms have been present for 1 day and indicates a pain score of 0/10. MEDICAL/SURGICAL HISTORY: Diabetes. Hypertension. Atrial fibrillation. Myocardial infarction. Hyperlipidemia. Stroke. Depression. Non-STEMI. Gastrointestinal bleed. Peripheral neuropathy. Coronar y artery disease. CABG. Stomach ulcer cauterization. Skin cancer excision. [place] [facility] [place]. . VELOCITY PARAMETERS: ICA/CCA Ratio: Right 1.9 , Left 2.5 ICA: Right 175 cm/sec, Left 253 cm/sec CCA: Right 92 cm/sec, Left 103 cm/sec ECA: Right 117 cm/sec, Left 185 cm/sec Vertebral: Right 45 cm/sec antegrade, Left 55 cm/sec antegrade FINDINGS: Right Carotid: Moderate arteriosclerotic plaque is visualized. There is diffuse intimal thickening s een. Scattered plaque is identified. The plaque is most prominent at the carotid bulb region. The car otid bulb plaque appears irregular. There is elevated peak systolic velocity within the right interna l carotid artery. Left Carotid: Moderate arteriosclerotic plaque is visualized. There is diffuse intimal thickening se en. There is prominent plaque at the carotid bulb region. There is elevated peak systolic velocity in the left internal carotid artery. Other: None. Electronically signed by: Branden Herron MD 01/26/2018 8:22 PM EDT
--- NOTE | 2018-01-26 20:41 | MR ---
cc: Mendez Ray MD DATE: 01/26/2018 INDICATIONS FOR PROCEDURE: Non-STEMI, preop noncardiac procedure, acute coronary syndrome, class IV angina, cardiomyopathy, CHF, anemia. The patient was brought to the cardiac catheterization laboratory, prepped and draped in the usual sterile fashion, and 10 mL of 1% lidocaine was used to locally anesthetize the right common femoral artery. A 4-Wallisian sheath was placed in the right common femoral artery. Then, 4-Wallisian JR4 and JL5 catheters were used to perform left and right coronary angiography, left ventriculography, and saphenous vein angiography. FINDINGS: LV pressure is 135/8-14, EF 40%. The right coronary artery is dominant, appears to have severe diffuse disease in the proximal segment up to 60% angiographically. It was very tortuous. The proximal reference vessel diameter was 3.5, but it abruptly tapers to a reference vessel diameter of probably 2.0 mm in the midsegment. Then, again, it probably has diffuse disease, but there is no focal stenosis. The jza-zu-goirvq segment is a 1 mm diameter vessel tapering to a 0.5 mm vessel with a relative stenosis in the ocf-zw-yqneqx segment of probably at least 50-60%. The right PDA appears to be occluded. The right MAURA supplies a zgzgi-hd-jipa collateral to a distal obtuse marginal vessel and distal left circumflex. These vessels are probably 1-1.5 mm in diameter. Vein graft to the superior branch of the OM is occluded at the ostium. Vein graft to the inferior branch of the OM was occluded at the ostium. Vein graft to the right PDA is occluded at the ostium. The left main coronary artery is fibrocalcific fluoroscopically. It is difficult to fill with injection, but initially appears to be possibly a stenosis, but with more forceful injection there was opacification, demonstrating no significant stenosis in the left main. The left circumflex has a mid 95% stenosis. First obtuse marginal vessel is a medium size vessel, probably 2.5 reference vessel diameter, with a long 95% proximal mid stenosis. Second obtuse marginal vessel bifurcates at the takeoff of the mid AV groove left circumflex, with the more superior branch being a 1.5 mm vessel with an ostial proximal 60% stenosis. The more lateral branch is a medium-sized vessel, reference vessel diameter 2.5, with a long 60% proximal stenosis. There also appears to be bpbn-zj-bsinw collaterals to the right PDA. The right PDA has a reference vessel diameter probably 1.5-2.0 mm. There was filling to a point of occlusion of the proximal right PDA. The LAD in the AP cranial view appears to have a fissured plaque with probably at least a 75% stenosis. The ostium as a relative 50-60% stenosis. The first diagonal artery is small. No significant disease angiographically. The second diagonal artery again is small to medium sized and no significant disease angiographically. The third diagonal artery also small to medium in size. No significant disease angiographically. LAD is transapical. CONCLUSION: 1. Angiographically-severe 3-vessel coronary artery disease in a codominant system, as detailed above. 2. There are 0/3 grafts patent. 3. Cardiomyopathy of 35% to 40%. 4. The patient is high risk for noncardiac procedure. 5. We will get a CT surgery consult to consider risks and benefits of redo CABG. Will need to maintain hemoglobin greater than 10. Also, notified Dr. Mcdonald of the findings. MD TANVI Zabala/tamia , 03:22 PM , 03:33 PM
[2018-01-26] MEDS: Melatonin 5 MG Tablet PO SCH (21:21)
[2018-01-27] MEDS: Gabapentin 100 MG Capsule PO SCH ×3 (01:19→14:15)
[2018-01-27] MEDS: Metoprolol Inj 5 MG/5 ML Vial IV.PUSH SCH (01:19)
[2018-01-27] MEDS: Sod Chloride 0.9% Inj 1,000 ML IV.SIG SCH (03:17)
[2018-01-27] MEDS: Pantoprazole Inj 40 MG Vial IV.PUSH SCH ×2 (03:23→14:22)
[2018-01-27 04:28] LABS: Baso # (Auto) 0.2 th/mm3 (0.0-0.2); Eos # (Auto) 0.1 th/mm3 (0.0-0.4); Eos % (Auto) 0.5 % (0.0-4.0); Hematocrit 24.5 % (39.0-51.0); Hemoglobin 8.1 gm/dL (13.0-17.0); Lymph # (Auto) 1.4 th/mm3 (1.0-4.8); Lymph % (Auto) 7.9 % (9.0-44.0); Mean Corpuscular Hemoglobin 28.4 pg (27.0-34.0); Mean Corpuscular Volume 86.1 fL (80.0-100.0); Mean Platelet Volume 9.7 fL (7.0-11.0); Mono # (Auto) 1.3 th/mm3 (0.0-0.9); Mono % (Auto) 7.7 % (0.0-8.0); Neut # (Auto) 14.3 th/mm3 (1.8-7.7); Neut % (Auto) 82.9 % (16.0-70.0); Platelet Count 416 th/mm3 (150-450); Red Blood Count 2.84 mil/mm3 (4.50-5.90); Red Cell Distribution Width 16.7 % (11.6-17.2); White Blood Count 17.3 th/mm3 (4.0-11.0)
[2018-01-27 04:38] LABS: Activated Partial Thrombo Time 24.7 sec (24.3-30.1); INR 1.1 Ratio
[2018-01-27 04:59] LABS: Albumin 3.1 g/dL (3.4-5.0); Anion Gap 8 meq/L (5-15); Aspartate Aminotransferase 20 U/L (15-37); Blood Urea Nitrogen 28 mg/dL (7-18); Calcium 8.2 mg/dL (8.5-10.1); Carbon Dioxide 23.5 meq/L (21.0-32.0); Chloride 108 meq/L (98-107); Glomerular Filtration Rate Greater Than 89 mL/min (>89); Glucose,Random 115 mg/dL (74-106); Sodium 139 meq/L (136-145)
[2018-01-27 05:00] LABS: Alanine Aminotransferase 16 U/L (12-78); Phosphorus 3.7 mg/dL (2.5-4.9)
[2018-01-27 05:02] LABS: Alkaline Phosphatase 65 U/L (45-117); Total Protein 5.9 g/dL (6.4-8.2)
--- NOTE | 2018-01-27 05:24 | XR ---
EXAM DATE: 01/27/2018 5:01 AM EDT AGE/SEX: 82 years / Male INDICATIONS: Short of breath. CLINICAL DATA: This is the patient's subsequent encounter. Patient reports that signs and symptoms h ave been present for 4 - 6 days and indicates a pain score of 0/10. MEDICAL/SURGICAL HISTORY: Hypertension. CABG. COMPARISON: [facility] [place] 1V SINGLE AP, 01/25/2018. . FINDINGS: A single AP view of the chest demonstrates persistent left basilar consolidation/effusion. There appe ars to be some right perihilar developing airspace disease which was not clearly present previously. Right costophrenic angle is not included on this exam and therefore, a small right-sided effusion can not be excluded. Heart size is normal. Intact median sternotomy wires. Osseous structures are intact CONCLUSION: 1. Persistent left basilar consolidation/effusion 2. Developing airspace disease in the medial right lung base. Electronically signed by: David Zimmerman MD 01/27/2018 5:22 AM EDT
--- NOTE | 2018-01-27 06:54 | P.PNCC ---
Subjective Subjective Remarks/Hospital Course: 82-year-old gentleman presents complaining of left-sided substernal chest pressure 2 episodes. First episode reported only happened around 1800 today. Patient was given 2 nitroglycerin with relief of the symptoms. Patient began having a separate episode around 1900 was given 3 nitroglycerin and EMS was called. Patient received 3 aspirins by EMS in route. Patient denies any pain currently. Patient reports feeling tingling sensation throughout his chest when this was going on. Denies any shortness of breath, nausea, vomiting, dizziness, headache, new weakness,. Patient states he has never had a stress test. In the emergency department he was found to have elevated troponin, however also melanotic stool with severe anemia. The cardiology on-call was consulted with recommendation of conservative management due to acute GI bleed. While in the emergency department he also developed atrial fibrillation with rapid ventricular response at 150s. He was treated with metoprolol IV with improvement of the heart rate to 100 and is now admitted to ICU. 01/27: Patient underwent cardiac catheterization by Dr. Ray yesterday. Showed severe 3-vessel coronary artery disease in a codominant system, with all 3 bypass grafts occluded. EF 35% to 40%. CT surgery of facial consult pending but according to bedside RN, turned down by CT surgery for redo CABG. I will resume his home regimen of aspirin and Plavix. Also placed on metoprolol 12.5 twice daily, and continue medical management Objective Vital Signs / I&O: Vital Signs 01/26/18 08:05 01/26/18 11:34 01/26/18 11:45 Temperature 97.4 F L Pulse Rate 111 H 115 H 111 H Respiratory Rate 20 20 22 Blood Pressure 112/88 129/59 L 129/58 L Pulse Oximetry 98 97 98 01/26/18 12:00 01/26/18 15:00 01/26/18 19:00 Temperature 98.5 F 98.7 F 98.2 F Pulse Rate 105 H 118 H 120 H Respiratory Rate 16 16 16 Blood Pressure 128/73 117/54 L 121/68 Pulse Oximetry 98 97 01/26/18 20:00 01/26/18 23:00 01/27/18 03:00 Temperature 98 F 98.2 F Pulse Rate 95 H 74 Respiratory Rate 16 18 Blood Pressure 103/59 L 124/52 L Pulse Oximetry 97 96 97 Intake & Output 01/26/18 01/26/18 01/27/18 06:59 18:59 06:59 Intake Total 800 / 800 240 / 240 2534 / 2534 Output Total 500 / 500 500 / 500 Balance 800 / 800 -260 / -260 2033 Weight 83.915 kg Intake: IV 0 / 0 1000 / 1000 Nitroglycerin Drip Premix 50 mg 0 / 0 In 250 ml @ Per Protocol IV. CONT TITRATE PRN Rx#:[id number] NS Inj 1,000 ML @ 100 mls/hr IV 1000 / 1000 .SIG .Q10H AML Rx#:[id number] Oral 240 / 240 480 / 480 Other 1054 / 1054 Intake (Blood Product) Amt 800 / 800 Rbc As-3 Leukoreduced Unit 400 / 400 [id number] Rbc As-3 Leukoreduced Unit 400 / 400 [id number] Output: Urine 500 / 500 500 / 500 Stool 0 / 0 Other: # Voids 100 # Urine Diapers 2 Date of Last Bowel Movement 01/24/18 Result Diagrams: 01/27/18 03:54 01/27/18 03:54 Objective Remarks: - Constitutional No acute distress at this time - Routine HEENT Exam Head: normocephalic, atraumatic Eye: PERRL ENT: mucous membranes moist - Routine Neck Exam supple. No JVD - Routine Chest/Breast/Axilla Exam Chest wall: Absent: tenderness, mass - Routine Respiratory Exam No accessory muscle use. Air entry equal bilaterally - Routine Cardiovascular Exam S1, S2, tachycardia, irregular rhythm - Routine Abdominal Exam soft, normoactive bowel sounds - Routine Extremities Exam No cyanosis, clubbing, edema - Routine Skin Exam intact, cyanosis. No erythema - Routine Neurological Exam alert, oriented X3. Residual left hemiplegia Assessment and Plan - Assessment and Plan Plan: Non-STEMI -Not a candidate for anticoagulation. -Hemoglobin remained stable overnight I will restart the home aspirin today and Plavix from 01/28/18 if Hb stable -Continue statins, change metoprolol to p.o. -Closely monitor hemoglobin. -Cardiac cath showed occluded grafts, EF 35-40%. -Not a candidate for redo CABG -Cardiology consultation appreciated Previous CVA/left hemiplegia -Patient has residual left-sided hemiparesis -PT evaluate and treat GI bleed -Protonix IV twice daily -Patient is deemed high risk for procedures -No EGD planned unless there is active bleeding A. fib with RVR -Metoprolol IV every 6 hours for rate control-change to PO Dyslipidemia -Atorvastatin Depressions -Celexa Peripheral neuropathy -Gabapentin DVT GI prophylaxis -Teds SCDs -No pharmacological DVT prophylaxis due to GI bleed -Protonix IV twice daily Critical Care: Level 3 Transfer to [facility] Consult hospitalist to assume care 01/28/2018
[2018-01-27] MEDS: Citalopram 20 MG Tablet PO SCH (09:47)
[2018-01-27] MEDS: Sodium Chloride 1 GM Tablet PO SCH ×3 (09:47→18:31)
[2018-01-27] MEDS: Senna/Docusate Sodium 8.6/50 MG Tablet PO SCH ×3 (09:48→22:03)
[2018-01-27] MEDS: Metoprolol Tartrate 25 MG Tablet PO SCH ×2 (09:56→22:00)
--- NOTE | 2018-01-27 10:20 | P.PNGI ---
Subjective Interval history: Pt S/P cath yesterday. Pt states no appetite, overall not feeling well. Denies BM or emesis. <Alyssa Turner - Last Filed: 01/27/18 10:18> Physical Exam Vital signs: Vital Signs 01/26/18 11:34 01/26/18 11:45 01/26/18 12:00 Temperature 97.4 F L 98.5 F Pulse Rate 115 H 111 H 105 H Respiratory Rate 20 22 16 Blood Pressure 129/59 L 129/58 L 128/73 Pulse Oximetry 97 98 98 01/26/18 15:00 01/26/18 19:00 01/26/18 20:00 Temperature 98.7 F 98.2 F Pulse Rate 118 H 120 H Respiratory Rate 16 16 Blood Pressure 117/54 L 121/68 Pulse Oximetry 97 97 01/26/18 23:00 01/27/18 03:00 Temperature 98 F 98.2 F Pulse Rate 95 H 74 Respiratory Rate 16 18 Blood Pressure 103/59 L 124/52 L Pulse Oximetry 96 97 Intake & Output 01/26/18 01/27/18 01/27/18 18:59 06:59 18:59 Intake Total 240 / 240 2534 / 2534 Output Total 500 / 500 500 / 500 Balance -260 / -260 2033 / 2033 Intake: IV 1000 / 1000 NS Inj 1,000 ML @ 100 mls/hr IV 1000 / 1000 .SIG .Q10H [facility] Rx#:[id number] Oral 240 / 240 480 / 480 Other 1054 / 1054 Output: Urine 500 / 500 500 / 500 Stool 0 / 0 Other: # Voids 100 Date of Last Bowel Movement 01/24/18 - Constitutional no acute distress - Routine HEENT Exam Head: Present: normocephalic, atraumatic - Routine Respiratory Exam Absent: accessory muscle use - Routine Abdominal Exam Present: soft, normoactive bowel sounds. Absent: tenderness - Routine Neurological Exam Present: alert, oriented X3 <Alyssa Turner - Last Filed: 01/27/18 10:18> Vital signs: Vital Signs 01/26/18 19:00 01/26/18 20:00 01/26/18 23:00 Temperature 98.2 F 98 F Pulse Rate 120 H 95 H Respiratory Rate 16 16 Blood Pressure 121/68 103/59 L Pulse Oximetry 97 97 96 01/27/18 03:00 01/27/18 07:00 01/27/18 09:40 Temperature 98.2 F 98.5 F Pulse Rate 74 94 H Respiratory Rate 18 18 Blood Pressure 124/52 L 105/64 Pulse Oximetry 97 95 98 01/27/18 11:00 01/27/18 15:00 Temperature 98.1 F 98.4 F Pulse Rate 88 90 Respiratory Rate 18 16 Blood Pressure 105/50 L 108/60 Pulse Oximetry 98 99 Intake & Output 01/26/18 01/27/18 01/27/18 18:59 06:59 18:59 Intake Total 240 / 240 2534 / 2534 Output Total 500 / 500 500 / 500 Balance -260 / -260 2033 Intake: IV 1000 / 1000 NS Inj 1,000 ML @ 100 mls/hr IV 1000 / 1000 .SIG .Q10H [facility] Rx#:[id number] Oral 240 / 240 480 / 480 Other 1054 / 1054 Output: Urine 500 / 500 500 / 500 Stool 0 / 0 Other: # Voids 100 Date of Last Bowel Movement 01/24/18 <Javy Mcdonald - Last Filed: 01/27/18 18:33> Results - Labs CBC & Chem 7: 01/27/18 03:54 01/27/18 03:54 Laboratory Results - last 24 hr 01/26/18 01/26/18 01/26/18 09:47 13:25 13:25 WBC RBC Hgb 9.0 L Hct MCV MCH MCHC RDW Plt Count MPV Neut % (Auto) Lymph % (Auto) [place] % (Auto) Eos % (Auto) Baso % (Auto) Neut # (Auto) Lymph # (Auto) [place] # (Auto) Eos # (Auto) Baso # (Auto) WBC Differential Differential Comment PT INR APTT Sodium Potassium Chloride Carbon Dioxide Anion Gap BUN Creatinine Estimated GFR Random Glucose Lactic Acid Calcium Phosphorus Magnesium Total Bilirubin AST ALT Alkaline Phosphatase Troponin I 3.36 H* 3.91 H* Total Protein Albumin 01/26/18 01/27/18 01/27/18 21:50 03:54 03:54 WBC 17.3 H RBC 2.84 L Hgb 8.5 L 8.1 L Hct 24.5 L MCV 86.1 MCH 28.4 MCHC 33.0 RDW 16.7 Plt Count 416 MPV 9.7 Neut % (Auto) 82.9 H Lymph % (Auto) 7.9 L [place] % (Auto) 7.7 Eos % (Auto) 0.5 Baso % (Auto) 1.0 Neut # (Auto) 14.3 H Lymph # (Auto) 1.4 [place] # (Auto) 1.3 H Eos # (Auto) 0.1 Baso # (Auto) 0.2 WBC Differential . Differential Comment Auto diff final PT 11.0 INR 1.1 APTT 24.7 Sodium Potassium Chloride Carbon Dioxide Anion Gap BUN Creatinine Estimated GFR Random Glucose Lactic Acid Calcium Phosphorus Magnesium Total Bilirubin AST ALT Alkaline Phosphatase Troponin I Total Protein Albumin 01/27/18 01/27/18 03:54 03:54 WBC RBC Hgb Hct MCV MCH MCHC RDW Plt Count MPV Neut % (Auto) Lymph % (Auto) [place] % (Auto) Eos % (Auto) Baso % (Auto) Neut # (Auto) Lymph # (Auto) [place] # (Auto) Eos # (Auto) Baso # (Auto) WBC Differential Differential Comment PT INR APTT Sodium 139 Potassium 4.0 Chloride 108 H Carbon Dioxide 23.5 Anion Gap 8 BUN 28 H Creatinine 0.80 Estimated GFR Greater than 89 Random Glucose 115 H Lactic Acid 1.1 Calcium 8.2 L Phosphorus 3.7 Magnesium 2.0 Total Bilirubin 0.7 AST 20 ALT 16 Alkaline Phosphatase 65 Troponin I Total Protein 5.9 L Albumin 3.1 L - Imaging Impressions Carotid Doppler Study 01/26/18 00:00 CONCLUSION: Plaque seen at the carotid bulb regions with elevated peak systolic velocity and elevated ICA/CCA ratios concerning for significant stenoses at the carotid bulb regions. The plaque on the right side appears irregular. Chest X-Ray 01/27/18 06:00 CONCLUSION: <Alyssa Turner - Last Filed: 01/27/18 10:18> - Labs CBC & Chem 7: 01/27/18 13:42 01/27/18 03:54 Laboratory Results - last 24 hr 01/26/18 01/27/18 01/27/18 21:50 03:54 03:54 WBC 17.3 H RBC 2.84 L Hgb 8.5 L 8.1 L Hct 24.5 L MCV 86.1 MCH 28.4 MCHC 33.0 RDW 16.7 Plt Count 416 MPV 9.7 Neut % (Auto) 82.9 H Lymph % (Auto) 7.9 L [place] % (Auto) 7.7 Eos % (Auto) 0.5 Baso % (Auto) 1.0 Neut # (Auto) 14.3 H Lymph # (Auto) 1.4 [place] # (Auto) 1.3 H Eos # (Auto) 0.1 Baso # (Auto) 0.2 WBC Differential . Differential Comment Auto diff final PT 11.0 INR 1.1 APTT 24.7 Sodium Potassium Chloride Carbon Dioxide Anion Gap BUN Creatinine Estimated GFR Random Glucose Lactic Acid Calcium Phosphorus Magnesium Total Bilirubin AST ALT Alkaline Phosphatase Total Protein Albumin Triglycerides Cholesterol LDL Cholesterol, Calc HDL Cholesterol Cholesterol/HDL Ratio 01/27/18 01/27/18 01/27/18 03:54 03:54 09:37 WBC RBC Hgb Hct MCV MCH MCHC RDW Plt Count MPV Neut % (Auto) Lymph % (Auto) [place] % (Auto) Eos % (Auto) Baso % (Auto) Neut # (Auto) Lymph # (Auto) [place] # (Auto) Eos # (Auto) Baso # (Auto) WBC Differential Differential Comment PT INR APTT Sodium 139 Potassium 4.0 Chloride 108 H Carbon Dioxide 23.5 Anion Gap 8 BUN 28 H Creatinine 0.80 Estimated GFR Greater than 89 Random Glucose 115 H Lactic Acid 1.1 Calcium 8.2 L Phosphorus 3.7 Magnesium 2.0 Total Bilirubin 0.7 AST 20 ALT 16 Alkaline Phosphatase 65 Total Protein 5.9 L Albumin 3.1 L Triglycerides 142 Cholesterol 79 L LDL Cholesterol, Calc 31 HDL Cholesterol 19.6 L Cholesterol/HDL Ratio 4.03 01/27/18 13:42 WBC RBC Hgb 7.9 L Hct MCV MCH MCHC RDW Plt Count MPV Neut % (Auto) Lymph % (Auto) [place] % (Auto) Eos % (Auto) Baso % (Auto) Neut # (Auto) Lymph # (Auto) [place] # (Auto) Eos # (Auto) Baso # (Auto) WBC Differential Differential Comment PT INR APTT Sodium Potassium Chloride Carbon Dioxide Anion Gap BUN Creatinine Estimated GFR Random Glucose Lactic Acid Calcium Phosphorus Magnesium Total Bilirubin AST ALT Alkaline Phosphatase Total Protein Albumin Triglycerides Cholesterol LDL Cholesterol, Calc HDL Cholesterol Cholesterol/HDL Ratio - Imaging Impressions Carotid Doppler Study 01/26/18 00:00 CONCLUSION: Plaque seen at the carotid bulb regions with elevated peak systolic velocity and elevated ICA/CCA ratios concerning for significant stenoses at the carotid bulb regions. The plaque on the right side appears irregular. Chest X-Ray 01/27/18 06:00 CONCLUSION: <Javy Mcdonald - Last Filed: 01/27/18 18:33> Assessment and Plan - Plan Assessment: - Anemia with Hemoccult positive stools and history of gastric, esophageal and duodenal ulcers- On admission H/H 7.4/20.4 now S/P 2 U PRBCs Pt denies any obvious GIB including black tarry stools and BRB in his stool. Denies nausea, vomiting, abdominal pain. States he has not had much of an appetite so he normally eats one meal a day, reports only has a BM every 3-4 days after taking a laxative. EGD was done [place] [address] Renae which revealed large non-bleeding duodenal bulb ulcer, edematous antral folds with three non-bleeding gastric ulcers, esophageal ulcer with what appears to be benign esophageal stricturing at the GE junction. Pathology (gastric ulcer) active chronic gastritis with features of ulceration, H. Pylori like organisms are present ( distal esophagus ulcer) chronic esophagitis with features of reflux esophagitis. Colonoscopy in 2004, adenomatous polyp. Of note, pt is on Plavix and ASA. He denies ETOH. Smokes 1 PPD. Denies NSAID use. - NSTEMI- elevated troponin- was in a-fib RVR now rate controlled - cardiology almond blancher recommended conservative management due to acute GIB- pending cardiology consult this morning EGD cancelled by anesthesia, will continue to monitor H/H closely and manage medically until pt is stable Per Dr. Mcdonald "Pt has been seen and examined by myself and Dr. Mcdonald and this note is written on his behalf Patient was seen and examined, the patient is having acute MO, severe elevation of his troponin, anemia could be exacerbating that, patient denies any black stool no sign of active bleeding no hematemesis no GI symptom he had a history of peptic ulcer many years ago and he does not remember details. The plan was to perform an upper endoscopy per Dr. Ray recommendation to make sure that he does not have an active bleeding ulcer by the anesthesia feel that the patient is having an acute MO at this time and feel that it is ultra indicated to put the patient sedated the patient so the procedure will not be done at this point, will treat the patient with PPI, will continue monitoring hemoglobin and give him packed RBC as needed, I contacted Dr. Ray and informed him about the anesthesia decision and he said he will see the patient and evaluate him, patient will continue on supportive care from GI perspective and we will wait for anesthesia and cardiology for final plan to when we can perform the endoscopy" (01/27) Pt S/P cath yesterday, 0/3 grafts patent, severe CAD S/P CT eval who are not planning on redo CABG. H/H has trended down today after blood transfusion, however continues to be no obvious GIB. Pt has had no BM or emesis. Will continue to monitor Plan: EGD pending cardiology clearance Obtain consent Keep NPO Protonix gtt Monitor H/H Further recommendations based on clinical course Pt has been seen and examined by myself and Dr. Mcdonald and this note is written on his behalf <Alyssa Turner - Last Filed: 01/27/18 10:18> - Plan Patient was seen and examined, still complaining of chest pain, very weak dropped his hemoglobin, Dr. Ray would not clear him for an endoscopy he thinks that his morbidity will be very high with the procedure so the management will be conservative with packed RBC as needed and PPI, we will sign off at this time <Javy Mcdonald - Last Filed: 01/27/18 18:33>
[2018-01-27 10:46] LABS: Chol/HDL Ratio 4.03 Ratio; HDL Cholesterol 19.6 mg/dL (40.0-60.0)
--- NOTE | 2018-01-27 12:04 | P.PNCV ---
- Note Subjective/Hospital Course: pt seen and evaluated, full consult to follow sts data discussed with pt RISK SCORES About the STS Risk Calculator Procedure: CAB Only Risk of Mortality: 7.441% Morbidity or Mortality: 35.607% Long Length of Stay: 21.576% Short Length of Stay: 14.252% Permanent Stroke: 3.52% Prolonged Ventilation: 29.887% DSW Infection: 1.019% Renal Failure: 7.235% Reoperation: 9.945% Objective: Vital Signs - 24 hr 01/26/18 15:00 01/26/18 19:00 01/26/18 20:00 Temperature 98.7 F 98.2 F Pulse Rate 118 H 120 H Respiratory Rate 16 16 Blood Pressure 117/54 L 121/68 Pulse Oximetry 97 97 01/26/18 23:00 01/27/18 03:00 01/27/18 07:00 Temperature 98 F 98.2 F 98.5 F Pulse Rate 95 H 74 94 H Respiratory Rate 16 18 18 Blood Pressure 103/59 L 124/52 L 105/64 Pulse Oximetry 96 97 95 01/27/18 09:40 Temperature Pulse Rate Respiratory Rate Blood Pressure Pulse Oximetry 98 Labs: Laboratory Results - last 12 hr 01/27/18 01/27/18 01/27/18 03:54 03:54 03:54 WBC 17.3 H RBC 2.84 L Hgb 8.1 L Hct 24.5 L MCV 86.1 MCH 28.4 MCHC 33.0 RDW 16.7 Plt Count 416 MPV 9.7 Neut % (Auto) 82.9 H Lymph % (Auto) 7.9 L [place] % (Auto) 7.7 Eos % (Auto) 0.5 Baso % (Auto) 1.0 Neut # (Auto) 14.3 H Lymph # (Auto) 1.4 [place] # (Auto) 1.3 H Eos # (Auto) 0.1 Baso # (Auto) 0.2 WBC Differential . Differential Comment Auto diff final PT 11.0 INR 1.1 APTT 24.7 Sodium 139 Potassium 4.0 Chloride 108 H Carbon Dioxide 23.5 Anion Gap 8 BUN 28 H Creatinine 0.80 Estimated GFR Greater than 89 Random Glucose 115 H Lactic Acid Calcium 8.2 L Phosphorus 3.7 Magnesium 2.0 Total Bilirubin 0.7 AST 20 ALT 16 Alkaline Phosphatase 65 Total Protein 5.9 L Albumin 3.1 L Triglycerides Cholesterol LDL Cholesterol, Calc HDL Cholesterol Cholesterol/HDL Ratio 01/27/18 01/27/18 03:54 09:37 WBC RBC Hgb Hct MCV MCH MCHC RDW Plt Count MPV Neut % (Auto) Lymph % (Auto) [place] % (Auto) Eos % (Auto) Baso % (Auto) Neut # (Auto) Lymph # (Auto) [place] # (Auto) Eos # (Auto) Baso # (Auto) WBC Differential Differential Comment PT INR APTT Sodium Potassium Chloride Carbon Dioxide Anion Gap BUN Creatinine Estimated GFR Random Glucose Lactic Acid 1.1 Calcium Phosphorus Magnesium Total Bilirubin AST ALT Alkaline Phosphatase Total Protein Albumin Triglycerides 142 Cholesterol 79 L LDL Cholesterol, Calc 31 HDL Cholesterol 19.6 L Cholesterol/HDL Ratio 4.03 Result Diagrams: 01/27/18 03:54 01/27/18 03:54
--- NOTE | 2018-01-27 12:52 | MB ---
cc: Marie Smith Sohit K MD DATE: 01/27/2018 HISTORY OF PRESENT ILLNESS: This is an 82-year-old male that resides at [facility]. The following physician is Dr. John Prajapati. He has a history of coronary artery disease with prior coronary artery bypass graft 10/[address] Barrios. At that time, he did a coronary artery bypass graft x 3 with endoscopic vein harvesting, saphenous vein graft to the posterior descending artery, saphenous vein graft to the ramus intermedius 1 and a saphenous vein graft to the ramus intermediate 2. He presented with a chief complaint of left substernal chest pain, was ruled in for a non-STEMI. Pain was relieved with nitroglycerin in the emergency department. He had a 1-[address] segment depression in the anterolateral leads. He underwent cardiac catheterization by Dr. Ray which showed all vein grafts occluded, proximal LAD 80% stenosed, the circuit was 95%, the OM 90%, RCA 70%, the EF of 40%. He had a new echo pending; however, he was recently discharged from the hospital in December after having a left-sided CVA. It was an MCA stroke on 12/20. At that time was followed by Dr. Dalal and has since been in the rehab facility. He was placed on aspirin and Plavix. Also noted on admission was his hemoglobin was 7.4, hematocrit of 20. He received 2 units of blood, which increased to 10 and is now down to 8.1. He has had a prior EGD 2009, which showed esophageal ulcers and active gastritis and also H. pylori and he is now being followed by Dr. Mcdonald's group, pending is for EGD; however, there was some difficulty with clearance from anesthesia until he was cleared by cardiology. At this time. He also has history of atrial fibrillation, diabetes mellitus, history of prior VA, hypertension, hyperlipidemia, depression, recent MCA stroke in 12/2017, skin cancer, major depression, history of esophageal ulcers, chronic gastritis. PAST SURGICAL HISTORY: Include the EGD, the colonoscopy, the coronary artery bypass graft x 3 in 2005. FAMILY HISTORY: Mother from bile duct cancer. Father from a history of cerebral hemorrhage. SOCIAL HISTORY: The patient is single, no children. No close relatives. Again, resides in [facility]. Basically wheelchair bound; however, can stand with the parallel bars with assistance. He does drag that left foot. REVIEW OF SYSTEMS: As above in the HPI. Other 12 systems unremarkable. PHYSICAL EXAMINATION: VITAL SIGNS: Blood pressure 124/60, heart rate of 90, afebrile, O2 saturation 98 on 2 liters. GENERAL: The patient is awake, alert, in no acute distress. HEENT: Head is normocephalic, atraumatic. Pupils equal and reactive. Oral mucosa pink, moist. NECK: Supple. No JVD. HEART: Sounds S1, S2. Regular rate and rhythm. No audible rubs, murmurs or gallops. LUNGS: Diminished at the bases, otherwise clear to auscultation. No wheezes, rales or rhonchi. ABDOMEN: Soft, nontender. No masses or organomegaly. EXTREMITIES: No cyanosis, clubbing, or edema. NEUROLOGIC: He has definite weakness on the left upper and lower extremities 3/5. LABORATORY DATA: Shows hemoglobin now 8.1 and 24 after 2 units. White cell count of 17,000, platelet count of 416. INR 1.1. Chemistry reveals a sodium of 139, potassium 4.0, BUN of 28, creatinine 0.80, troponin 3.91. ALLERGIES: HE HAS NO KNOWN ALLERGIES. MEDICATIONS: His medication in the rehab include: 1. MiraLax. 2. Aspirin. 3. Atorvastatin. 4. Celexa. 5. Plavix. 6. Gabapentin. 7. Melatonin. 8. Sodium tabs. RADIOLOGICAL EXAMS: Chest x-ray, left basilar consolidation. He had a carotid ultrasound back on the which showed velocities internal carotids, the right was 125 cm per second. The left was 70. His new ultrasound showed in increase in velocities. The right 175 cm, the left at 253 cm per second. He had a carotid CTA of the neck also in December, which showed 50% ostial stenosis of the left; however, he does have increasing velocities on both the right and the left internal carotid. IMPRESSION/PLAN: This is an 82-year-old male with a prior history of coronary artery disease with prior coronary artery bypass graft x 3. All grafts have been occluded. He now has multivessel disease, ejection fraction 40%. His STS risk score is 7.4 with comorbidities including recent cerebrovascular accident on Plavix, left-sided weakness, basically wheelchair bound, chronic anemia with a history of prior gastrointestinal bleed, now with admitting hemoglobin of 7.4 post-infusion. The patient is very high risk for surgery. The gastrointestinal bleed needs to be evaluated prior to any surgery. Also, other risks include atrial fibrillation. Further planning per Dr. Loly Hernandez, however, the patient recommendation at this time would be medical therapy in lieu of his high STS risk score and recent cerebrovascular accident and his mobility. PAGE OsmanP Loly Hernandez MD JRT/DL , 12:18 PM , 12:31 PM
--- NOTE | 2018-01-27 15:09 | P.PNCV ---
- Note Subjective/Hospital Course: Patient examined and chart, angiograms reviewed. He has severe recurrent coronary artery disease with no viable coronary bypass grafts. The previous op note does mention that the left internal mammary artery was harvested, but there is no indication that it was used. Given the above scenario, his significant medical comorbidities, advanced age, previous stroke, continued smoking as well as persistent anemia, reoperative sternotomy with redo coronary artery bypass grafting will carry a prohibitive risk. My recommendation would be to optimize his medical therapy if, in fact, he is not a candidate for percutaneous intervention to the LAD lesion. Thank you for allowing me to participate the care of this patient. Objective: Vital Signs - 24 hr 01/26/18 19:00 01/26/18 20:00 01/26/18 23:00 Temperature 98.2 F 98 F Pulse Rate 120 H 95 H Respiratory Rate 16 16 Blood Pressure 121/68 103/59 L Pulse Oximetry 97 97 96 01/27/18 03:00 01/27/18 07:00 01/27/18 09:40 Temperature 98.2 F 98.5 F Pulse Rate 74 94 H Respiratory Rate 18 18 Blood Pressure 124/52 L 105/64 Pulse Oximetry 97 95 98 01/27/18 11:00 Temperature 98.1 F Pulse Rate 88 Respiratory Rate 18 Blood Pressure 105/50 L Pulse Oximetry 98 Labs: Laboratory Results - last 12 hr 01/27/18 01/27/18 01/27/18 03:54 03:54 03:54 WBC 17.3 H RBC 2.84 L Hgb 8.1 L Hct 24.5 L MCV 86.1 MCH 28.4 MCHC 33.0 RDW 16.7 Plt Count 416 MPV 9.7 Neut % (Auto) 82.9 H Lymph % (Auto) 7.9 L [place] % (Auto) 7.7 Eos % (Auto) 0.5 Baso % (Auto) 1.0 Neut # (Auto) 14.3 H Lymph # (Auto) 1.4 [place] # (Auto) 1.3 H Eos # (Auto) 0.1 Baso # (Auto) 0.2 WBC Differential . Differential Comment Auto diff final PT 11.0 INR 1.1 APTT 24.7 Sodium 139 Potassium 4.0 Chloride 108 H Carbon Dioxide 23.5 Anion Gap 8 BUN 28 H Creatinine 0.80 Estimated GFR Greater than 89 Random Glucose 115 H Lactic Acid Calcium 8.2 L Phosphorus 3.7 Magnesium 2.0 Total Bilirubin 0.7 AST 20 ALT 16 Alkaline Phosphatase 65 Total Protein 5.9 L Albumin 3.1 L Triglycerides Cholesterol LDL Cholesterol, Calc HDL Cholesterol Cholesterol/HDL Ratio 01/27/18 01/27/18 01/27/18 03:54 09:37 13:42 WBC RBC Hgb 7.9 L Hct MCV MCH MCHC RDW Plt Count MPV Neut % (Auto) Lymph % (Auto) [place] % (Auto) Eos % (Auto) Baso % (Auto) Neut # (Auto) Lymph # (Auto) [place] # (Auto) Eos # (Auto) Baso # (Auto) WBC Differential Differential Comment PT INR APTT Sodium Potassium Chloride Carbon Dioxide Anion Gap BUN Creatinine Estimated GFR Random Glucose Lactic Acid 1.1 Calcium Phosphorus Magnesium Total Bilirubin AST ALT Alkaline Phosphatase Total Protein Albumin Triglycerides 142 Cholesterol 79 L LDL Cholesterol, Calc 31 HDL Cholesterol 19.6 L Cholesterol/HDL Ratio 4.03 Result Diagrams: 01/27/18 13:42 01/27/18 03:54
--- NOTE | 2018-01-27 17:51 | ECHRPT ---
Indication: CORONARY ATHEROSCLEROSIS CONCLUSIONS Normal left ventricular size. Mild concentric left ventricular hypertrophy. The left ventricular systolic function is mildly reduced with an estimated ejection fraction in the range of 40%. Mild to moderate mitral valve regurgitation. There is mild tricuspid valve regurgitation. The estimated pulmonary arterial pressure is 47 mmHg. BP: / HR: Rhythm: Sinus MEASUREMENTS (Male / Female) Normal Values Technical Quality:Fair 2D ECHO LV Diastolic Diameter PLAX 4.9 cm 4.2 - 5.9 / 3.9 - 5.3 cm LV Systolic Diameter PLAX 4.0 cm IVS Diastolic Thickness 1.2 cm 0.6 - 1.0 / 0.6 - 0.9 cm LVPW Diastolic Thickness 1.2 cm 0.6 - 1.0 / 0.6 - 0.9 cm LV Relative Wall Thickness 0.5 RV Internal Dim ED PLAX 3.3 cm LVOT Diameter 2.4 cm Aortic Root Diameter 3.5 cm LA Systolic Diameter LX 3.6 cm 3.0 - 4.0 / 2.7 - 3.8 cm M-MODE AV Cusp Separation MM 1.8 cm DOPPLER AV Peak Velocity 173.0 cm/s AV Peak Gradient 12.0 mmHg AV Mean Gradient 7.3 mmHg AV Velocity Time Integral 29.6 cm LVOT Peak Velocity 67.3 cm/s LVOT Peak Gradient 1.8 mmHg LVOT Velocity Time Integral 13.2 cm AV Area Cont Eq vti 2.0 cm AV Area Cont Eq pk 1.8 cm Mitral E Point Velocity 101.2 cm/s LV E' Septal Velocity 10.3 cm/s Mitral E to LV E' Septal Ratio 9.8 TR Peak Velocity 304.0 cm/s TR Peak Gradient 37.0 mmHg Right Atrial Pressure 10.0 mmHg Pulmonary Artery Systolic Pressu 47.0 mmHg Right Ventricular Systolic Press 47.0 mmHg PV Peak Velocity 54.9 cm/s PV Peak Gradient 1.2 mmHg FINDINGS LEFT VENTRICLE Normal left ventricular size. Mild concentric left ventricular hypertrophy. The left ventricular systolic function is mildly reduced with an estimated ejection fraction in the range of 45- 50%. RIGHT VENTRICLE Normal right ventricular size and systolic function. LEFT ATRIUM The left atrial size is normal. RIGHT ATRIUM The right atrial size is normal. ATRIAL SEPTUM No atrial level shunt is demonstrated by color flow Doppler interrogation. AORTA The aortic root and proximal ascending aorta are normal in size on limited imaging. MITRAL VALVE Mild mitral valve regurgitation. AORTIC VALVE Trileaflet aortic valve. No aortic valve stenosis or regurgitation. TRICUSPID VALVE There is mild tricuspid valve regurgitation. The estimated pulmonary arterial pressure is 47 mmHg. PULMONARY VALVE No pulmonary valve regurgitation or stenosis. VESSELS The inferior vena cava is normal in size. PERICARDIUM No pericardial effusion. Mendez Ray MD, FACC, [facility] (Electronically Signed) Final Date:27 January 2018 17:50
--- NOTE | 2018-01-27 20:59 | P.PNCA ---
Subjective Interval history: assymptomatic in nad Physical Exam Vital signs: Vital Signs 01/26/18 23:00 01/27/18 03:00 01/27/18 07:00 Temperature 98 F 98.2 F 98.5 F Pulse Rate 95 H 74 94 H Respiratory Rate 16 18 18 Blood Pressure 103/59 L 124/52 L 105/64 Pulse Oximetry 96 97 95 01/27/18 09:40 01/27/18 11:00 01/27/18 15:00 Temperature 98.1 F 98.4 F Pulse Rate 88 90 Respiratory Rate 18 16 Blood Pressure 105/50 L 108/60 Pulse Oximetry 98 98 99 Intake & Output 01/27/18 01/27/18 01/28/18 06:59 18:59 06:59 Intake Total 2534 / 2534 480 / 480 Output Total 500 / 500 500 / 500 Balance 2033 / 2033 -20 / - Intake: IV 1000 / 1000 NS Inj 1,000 ML @ 100 mls/hr IV 1000 / 1000 .SIG .Q10H MAL Rx#:[id number] Oral 480 / 480 480 / 480 Other 1054 / 1054 Output: Urine 500 / 500 500 / 500 Stool 0 / 0 Other: # Incontinent Voids 1 Date of Last Bowel Movement 01/24/18 Assessment and Plan - Assessment (1) NSTEMI (non-ST elevated myocardial infarction) Code(s): I21.4 - Non-ST elevation (NSTEMI) myocardial infarction Status: Acute (2) CAD (coronary artery disease) Code(s): I25.10 - Atherosclerotic heart disease of [place] coronary artery without angina pectoris Status: Acute (3) Anemia Code(s): D64.9 - Anemia, unspecified Status: Acute (4) Anemia Code(s): D64.9 - Anemia, unspecified Status: Acute (5) Right-sided lacunar stroke Code(s): I63.9 - Cerebral infarction, unspecified Status: Acute (6) Left hemiparesis Code(s): G81.94 - Hemiplegia, unspecified affecting left nondominant side Status: Acute (7) Impaired mobility and activities of daily living Code(s): Z74.09 - Other reduced mobility Status: Acute (8) Recurrent falls while walking Code(s): R29.6 - Repeated falls Status: Acute (9) CHF (congestive heart failure) Code(s): I50.9 - Heart failure, unspecified Status: Chronic (10) Hypertension, essential Code(s): I10 - Essential (primary) hypertension Status: Chronic (11) Diabetes mellitus Code(s): E11.9 - Type 2 diabetes mellitus without complications Status: Chronic (12) Hyperlipidemia Code(s): E78.5 - Hyperlipidemia, unspecified Status: Acute - Plan 1.) CAD - severe 3 vessel cad, severe anemia too high risk for cabg per Dr Hernandez, risk of pci is high due to severe anemia with undiagnosed etioolgy with uncertainty of bleeding with ac and dapt; therefore rec referral to high risk center for eval for high risk cabg or pci ow if not a transfer candidate rec palliative care and hospice (9) CHF (congestive heart failure) Qualifiers: Heart failure type: systolic Heart failure chronicity: acute on chronic Qualified Code(s): I50.23 - Acute on chronic systolic (congestive) heart failure (11) Diabetes mellitus Qualifiers: Diabetes mellitus type: type 2 Diabetes mellitus senior care insulin use: without senior care use Diabetes mellitus complication status: without complication Qualified Code(s): E11.9 - Type 2 diabetes mellitus without complications (12) Hyperlipidemia Qualifiers: Hyperlipidemia type: mixed hyperlipidemia Qualified Code(s): E78.2 - Mixed hyperlipidemia
[2018-01-28 06:01] LABS: Hematocrit 23.6 % (39.0-51.0); Hemoglobin 7.9 gm/dL (13.0-17.0); Mean Corpuscular HGB Conc 33.4 % (32.0-36.0); Mean Corpuscular Hemoglobin 29.1 pg (27.0-34.0); Mean Corpuscular Volume 87.3 fL (80.0-100.0); Platelet Count 455 th/mm3 (150-450); Red Blood Count 2.71 mil/mm3 (4.50-5.90); Red Cell Distribution Width 17.2 % (11.6-17.2); White Blood Count 18.3 th/mm3 (4.0-11.0)
[2018-01-28 06:21] LABS: Alanine Aminotransferase 26 U/L (12-78); Albumin 3.3 g/dL (3.4-5.0); Anion Gap 10 meq/L (5-15); Aspartate Aminotransferase 20 U/L (15-37); Blood Urea Nitrogen 29 mg/dL (7-18); Calcium 8.4 mg/dL (8.5-10.1); Carbon Dioxide 22.5 meq/L (21.0-32.0); Chloride 109 meq/L (98-107); Glomerular Filtration Rate 84 mL/min (>89); Glucose,Random 118 mg/dL (74-106); Potassium 4.1 meq/L (3.5-5.1); Sodium 141 meq/L (136-145)
[2018-01-28 06:23] LABS: Alkaline Phosphatase 70 U/L (45-117)
[2018-01-28] MEDS: Pantoprazole Inj 40 MG Vial IV.PUSH SCH ×2 (08:27→14:57)
[2018-01-28] MEDS: Citalopram 20 MG Tablet PO SCH (08:32)
[2018-01-28] MEDS: Sodium Chloride 1 GM Tablet PO SCH ×3 (08:32→17:26)
[2018-01-28] MEDS: Senna/Docusate Sodium 8.6/50 MG Tablet PO SCH ×3 (08:32→09:59)
[2018-01-28] MEDS: Metoprolol Tartrate 25 MG Tablet PO SCH ×2 (08:32→22:25)
--- NOTE | 2018-01-28 09:37 | P.PNIM ---
Subjective Interval history: 82-year-old gentleman presents complaining of left-sided substernal chest pressure 2 episodes. First episode reported only happened around 1800 today. Patient was given 2 nitroglycerin with relief of the symptoms. Patient began having a separate episode around 1900 was given 3 nitroglycerin and EMS was called. Patient received 3 aspirins by EMS in route. Patient denies any pain currently. Patient reports feeling tingling sensation throughout his chest when this was going on. Denies any shortness of breath, nausea, vomiting, dizziness, headache, new weakness,. Patient states he has never had a stress test. In the emergency department he was found to have elevated troponin, however also melanotic stool with severe anemia. The cardiology on-call was consulted with recommendation of conservative management due to acute GI bleed. While in the emergency department he also developed atrial fibrillation with rapid ventricular response at 150s. He was treated with metoprolol IV with improvement of the heart rate to 100 and is now admitted to ICU. 01/27: Patient underwent cardiac catheterization by Dr. Ray yesterday. Showed severe 3-vessel coronary artery disease in a codominant system, with all 3 bypass grafts occluded. EF 35% to 40%. CT surgery of facial consult pending but according to bedside RN, turned down by CT surgery for redo CABG. I will resume his home regimen of aspirin and Plavix. Also placed on metoprolol 12.5 twice daily, and continue medical management 01/28. Patient says he is feeling all right. Does have some nausea. Heart rate in the 120s per nursing. Patient denies miah chest pain Physical Exam Vital signs: Vital Signs 01/27/18 09:40 01/27/18 11:00 01/27/18 15:00 Temperature 98.1 F 98.4 F Pulse Rate 88 90 Respiratory Rate 18 16 Blood Pressure 105/50 L 108/60 Pulse Oximetry 98 98 99 01/27/18 21:45 01/27/18 23:00 01/28/18 03:00 Temperature 98.4 F Pulse Rate 100 H 86 100 H Respiratory Rate 16 Blood Pressure 124/67 Pulse Oximetry 96 01/28/18 05:04 01/28/18 07:00 01/28/18 08:00 Temperature 98.6 F 97.7 F Pulse Rate 98 H 117 H 124 H Respiratory Rate 16 22 Blood Pressure 123/73 132/86 Pulse Oximetry 97 97 97 01/28/18 09:00 Temperature Pulse Rate 98 H Respiratory Rate Blood Pressure Pulse Oximetry Intake & Output 01/27/18 01/28/18 01/28/18 18:59 06:59 18:59 Intake Total 480 / 480 420 / 420 1000 / 1000 Output Total 500 / 500 300 / 300 Balance -20 / -20 120 / 120 1000 / 1000 Weight 84.6 kg Intake: IV 1000 / 1000 NS Inj 1,000 ML @ 100 mls/hr IV 1000 / 1000 .SIG .Q10H MAL Rx#:[id number] Oral 480 / 480 420 / 420 Output: Urine 500 / 500 300 / 300 Other: # Incontinent Voids 1 # Bowel Movements 2 Narrative: GENERAL: Patient lying in bed. Appears comfortable. Alert and oriented 4. SKIN: Warm and dry. HEAD: Normocephalic. EYES: No scleral icterus. No injection or drainage. NECK: Supple, trachea midline. No JVD. CARDIOVASCULAR: Tachycardic. Irregularly irregular. Without murmurs, gallops, or rubs. RESPIRATORY: Breath sounds equal bilaterally. No accessory muscle use. GASTROINTESTINAL: Abdomen soft, non-tender, nondistended. MUSCULOSKELETAL: No cyanosis, or edema. BACK: Nontender without obvious deformity. No CVA tenderness. Results - Labs CBC & Chem 7: 01/28/18 04:52 01/28/18 04:52 Laboratory Results - last 24 hr 01/27/18 01/27/18 01/27/18 09:37 13:42 22:28 WBC RBC Hgb 7.9 L 8.0 L Hct MCV MCH MCHC RDW Plt Count MPV Sodium Potassium Chloride Carbon Dioxide Anion Gap BUN Creatinine Estimated GFR POC Glucose Random Glucose Calcium Total Bilirubin AST ALT Alkaline Phosphatase Total Protein Albumin Triglycerides 142 Cholesterol 79 L LDL Cholesterol, Calc 31 HDL Cholesterol 19.6 L Cholesterol/HDL Ratio 4.03 01/27/18 01/28/18 01/28/18 22:40 04:52 04:52 WBC 18.3 H RBC 2.71 L Hgb 7.9 L Hct 23.6 L MCV 87.3 MCH 29.1 MCHC 33.4 RDW 17.2 Plt Count 455 H MPV 10.0 Sodium 141 Potassium 4.1 Chloride 109 H Carbon Dioxide 22.5 Anion Gap 10 BUN 29 H Creatinine 0.87 Estimated GFR 84 L POC Glucose 138 H Random Glucose 118 H Calcium 8.4 L Total Bilirubin 0.6 AST 20 ALT 26 Alkaline Phosphatase 70 Total Protein 6.0 L Albumin 3.3 L Triglycerides Cholesterol LDL Cholesterol, Calc HDL Cholesterol Cholesterol/HDL Ratio Assessment and Plan - Plan //Non-STEMI -Not a candidate for anticoagulation. -Hemoglobin remained stable overnight I will restart the home aspirin today and Plavix from 01/28/18 if Hb stable -Continue statins, change metoprolol to p.o. -Closely monitor hemoglobin. -Cardiac cath showed occluded grafts, EF 35-40%. -Not a candidate for redo CABG -Cardiology consultation appreciated = 01/28. Very difficult situation. Patient agrees with palliative care consultation. //Previous CVA/left hemiplegia -Patient has residual left-sided hemiparesis -PT evaluate and treat //GI bleed -Protonix IV twice daily -Patient is deemed high risk for procedures -No EGD planned unless there is active bleeding //A. fib with RVR -Metoprolol IV every 6 hours for rate control-change to PO = 01/28. Heart rate in the 120s A. fib RVR. Will increase metoprolol by mouth //Dyslipidemia -Atorvastatin //Depressions -Celexa //Peripheral neuropathy -Gabapentin //DVT GI prophylaxis -Teds SCDs -No pharmacological DVT prophylaxis due to GI bleed -Protonix IV twice daily Discharge Planning: Palliative care consulted.
[2018-01-28 09:46] LABS: % Iron Saturation 16.9 % (20-50)
[2018-01-28] MEDS: Gabapentin 100 MG Capsule PO SCH ×4 (09:59→22:23)
[2018-01-28] MEDS: Melatonin 5 MG Tablet PO SCH (09:59)
--- NOTE | 2018-01-28 10:07 | P.PNCA ---
Subjective Interval history: denies chest pain Physical Exam Vital signs: Vital Signs 01/27/18 11:00 01/27/18 15:00 01/27/18 21:45 Temperature 98.1 F 98.4 F Pulse Rate 88 90 100 H Respiratory Rate 18 16 Blood Pressure 105/50 L 108/60 Pulse Oximetry 98 99 01/27/18 23:00 01/28/18 03:00 01/28/18 05:04 Temperature 98.4 F 98.6 F Pulse Rate 86 100 H 98 H Respiratory Rate 16 16 Blood Pressure 124/67 123/73 Pulse Oximetry 96 97 01/28/18 07:00 01/28/18 08:00 01/28/18 09:00 Temperature 97.7 F Pulse Rate 117 H 124 H 98 H Respiratory Rate 22 Blood Pressure 132/86 Pulse Oximetry 97 97 Intake & Output 01/27/18 01/28/18 01/28/18 18:59 06:59 18:59 Intake Total 480 / 480 420 / 420 1000 / 1000 Output Total 500 / 500 300 / 300 Balance -20 / -20 120 / 120 1000 / 1000 Weight 84.6 kg Intake: IV 1000 / 1000 NS Inj 1,000 ML @ 100 mls/hr IV 1000 / 1000 .SIG .Q10H MAL Rx#:[id number] Oral 480 / 480 420 / 420 Output: Urine 500 / 500 300 / 300 Other: # Incontinent Voids 1 Date of Last Bowel Movement 01/28/18 # Bowel Movements 2 Assessment and Plan - Assessment (1) NSTEMI (non-ST elevated myocardial infarction) Code(s): I21.4 - Non-ST elevation (NSTEMI) myocardial infarction Status: Acute (2) CAD (coronary artery disease) Code(s): I25.10 - Atherosclerotic heart disease of [place] coronary artery without angina pectoris Status: Acute (3) Anemia Code(s): D64.9 - Anemia, unspecified Status: Acute (4) Anemia Code(s): D64.9 - Anemia, unspecified Status: Acute (5) Right-sided lacunar stroke Code(s): I63.9 - Cerebral infarction, unspecified Status: Acute (6) Left hemiparesis Code(s): G81.94 - Hemiplegia, unspecified affecting left nondominant side Status: Acute (7) Impaired mobility and activities of daily living Code(s): Z74.09 - Other reduced mobility Status: Acute (8) Recurrent falls while walking Code(s): R29.6 - Repeated falls Status: Acute (9) CHF (congestive heart failure) Code(s): I50.9 - Heart failure, unspecified Status: Chronic (10) Hypertension, essential Code(s): I10 - Essential (primary) hypertension Status: Chronic (11) Diabetes mellitus Code(s): E11.9 - Type 2 diabetes mellitus without complications Status: Chronic (12) Hyperlipidemia Code(s): E78.5 - Hyperlipidemia, unspecified Status: Acute - Plan 1.) CAD - severe 3 vessel cad, severe anemia too high risk for cabg per Dr Hernandez, risk of pci is high due to severe anemia with undiagnosed etiolgy with uncertainty of bleeding with ac and dapt; therefore rec referral to high risk center for eval for high risk cabg or pci ow if not a transfer candidate rec palliative care and hospice; case management and palliative care consult placed , d/w nursing and patient (9) CHF (congestive heart failure) Qualifiers: Heart failure type: systolic Heart failure chronicity: acute on chronic Qualified Code(s): I50.23 - Acute on chronic systolic (congestive) heart failure (11) Diabetes mellitus Qualifiers: Diabetes mellitus type: type 2 Diabetes mellitus [employer] insulin use: without assisted use Diabetes mellitus complication status: without complication Qualified Code(s): E11.9 - Type 2 diabetes mellitus without complications (12) Hyperlipidemia Qualifiers: Hyperlipidemia type: mixed hyperlipidemia Qualified Code(s): E78.2 - Mixed hyperlipidemia
[2018-01-28] MEDS ORDERED: Metoprolol Tartrate 25 MG Tablet PO ONE (10:30)
[2018-01-28] MEDS: Chlorhexidine Gluconate 2% 1 Pack (2 Cloths) TOPICAL SCH ×2 (11:57→11:58)
[2018-01-28] MEDS: Sod Chloride 0.9% Inj 1,000 ML IV.SIG SCH ×3 (11:57→11:59)
--- NOTE | 2018-01-28 13:04 | P.CONPAL ---
Consult Service: Palliative Care Requesting Physician: Sathya Smyth Reason for Consult: a. To assist with evaluation and management of symptoms including:fatigued, chest pain b. To assist medical decision maker(s) with: better understanding of current medical conditions; weighing benefits/burdens of medical treatment options; making medical treatment decisions. Primary Care Provider: [facility] History of Present Illness History of Present Illness: Patient is a 82-year-old with a primary hospice of CAD status post CABG 2004 x3 , peptic ulcers disease, A. fib, diabetes, myocardial infarction, hypertension, hyperlipidemia, depression, CVA. Patient presented to the hospital on 724 when patient complained of left-sided substernal chest pain on the left side that was initially relieved by nitroglycerin. EMS was activated 01/25/2018 and patient went to the ER has pain despite nitroglycerin. In the ER: * Temperature is 98.8, pulse is 80, respirations 18, blood pressure is 120/58, pulse ox is 99% on 2 L nasal cannula * WBC is 14.6, hemoglobin 7.4, hematocrit 20.4, platelet is 413 * Sodium is 130, potassium is 3.4, chloride 106, bicarb 20.2, BUN is 36, creatinine 0.90 * Initial EKG shows no significant ischemia. But the second set of EKG shows 1- [address] segment depression in the anterior lateral leads. * Troponin I initial set 0.22, subsequent cardiac enzymes were elevated 0.73, free 0.15, 3.36 * BNP is 418 * PT is 11.2, INR is 1.1, PTT is 23.6 * Chest x-ray shows no acute abnormality seen. Cardiology came and evaluated patient. Cardiology given his severe anemia for will be difficult to aggressively anticoagulate. Cardiology transfusing with 2 units of PRBC. Recommend continue Lipitt. Plavix and aspirin was held. Carotid Doppler study was ordered. Patient admitted to the ICU. 01/26/2018-GI was consulted for possible GI bleed, Hemoccult was positive. History of gastric esophageal and duodenal ulcers. Patient's colonoscopy was 2004 showed a polyp, EGD in 2009 shows nonbleeding duodenal bulb ulcer, active gastritis. H. pylori present. GI feel EGD is pending cardiology clearance. Cardiac Cath performed and showed all vein graft occluded. Proximal LAD is 80% stenosis, circumflec 95%, OM is 90%, RCA 70%: EF 35-40%. 01/27/2018. Cardiothoracic surgeon was consulted. EF in the range of 40%. Mild concentric left ventricular hypertrophy. Moderate mitral valve regurgitation. Mild tricuspid valve regurgitation. Dr. Hernandez reviewed patient's case and feels risk for surgical procedure is too high for CABG. he recommended referral to high-risk center for eval for high risk CABG or if not recommend hospice and transition to comfort. GI has no EGD planned unless there is active bleeding. Palliative care was consulted to review goals of care. 01/28. On my visit, pt is awake alert. He is able to tell me why he came in "chest pain," and about his heart condition "Its not good." He demonstrate insight to his illness and ability to weigh risk and benefits. I have reviewed his clinical condition including his heart, his anemia, gi bleed. Goals of care reviewed. Code status and Advance directive discussed and completed (16 min). He is amenable to hospice and comfort measures He states, "I just want to go home, if I have chest pain they give me nitro's," "I am ready to ." He gave me permission to call his friend Junito Santa. Ms. Junito Santa is now the designated health care surrogate, and is amenable to serving. She is flying down from [place]. She is aware and support his decision to transition to comfort. She is aware of his decision to be DNR. She will meet with pt and hospice tomorrow. symptom wyatt he endorse generalized fatigued. He denies chest pain currenlty or pain. Function/Cognitive Trajectory: Resides in [facility]. Basically wheelchair bound. Can stand with parallel bars with asssitance. he dos drag that left foot Review of Systems Constitutional: Reports fatigue Cardiovascular: Reports chest pain Respiratory: Reports shortness of breath with activity (none currently) Gastrointestinal: Reports other (hemmoccult positive) Neurologic: Denies behavioral changes, Denies burning sensations, Denies confusion Psychiatric: Denies abnormal sleep pattern, Denies behavioral changes, Denies change in appetite Endocrine: Denies cold intolerance, Denies excessive sweating Hematologic/Lymphatic: Reports other (anemia), Denies easy bleeding, Denies easy bruising Allergic/Immunologic: Denies GI upset with certain foods, Denies itchy eyes PMFSH - History History Provided By: Shareholder / EMT - Medical History Medical History: Medical History (Last Updated 01/28/18 @ 12:57 by Guanaco Patel MD) Abnormal colonoscopy (Acute) Atrial fibrillation Diabetes Heart attack High cholesterol Hypertension Major depressive disorder Stroke - Surgical History Surgical History: Surgical History (Last Updated 01/28/18 @ 12:57 by Gaunaco Patel MD) S/P CABG x 3 (Acute) History of esophagogastroduodenoscopy (EGD) (Acute) - Family History Family History: Family History (Last Updated 01/28/18 @ 12:58 by Guanaco Patel MD) Mother Bile duct cancer Father Cerebral hemorrhage - Tobacco History Second Hand Smoke Exposure: No Tobacco Use In Past 30 Days: No Smoking Status: Former smoker - Alcohol History How Often Do You Have a Drink Containing Alcohol: Never - Substance Use History Substance History: No History of Abuse - Travel History Recent Travel in the [place] Within the Last 8 Weeks: No Recent Travel Out of the Country Within the Last 8 Weeks: No - Immunization History Tetanus Immunization: Unsure Hx Influenza Vaccine This Season: No Medications and Allergies Active Medications: Active Medications Acetaminophen (Tylenol) 650 mg PO Q4H PRN PRN Reason: Temp > 100.4 Al Hydroxide/Mg Hydroxide (Milk Of Magnsally Liq) 30 ml PO Q12H PRN PRN Reason: Mild Constipation Albuterol (Duoneb Neb (Prn)) 1 ampul NEB Q2HR NEB PRN PRN Reason: WHEEZING Aspirin (Ecotrin) 81 mg PO DAILY REPLACED BY [facility] Last Admin: 01/28/18 08:32 Dose: 81 mg Atorvastatin Calcium (Lipitor) 40 mg PO [facility] Last Admin: 01/27/18 22:00 Dose: 40 mg Bisacodyl (Dulcolax Supp) 10 mg RECTAL DAILY PRN PRN Reason: SEVERE CONSITIPATION Bisacodyl (Dulcolax Ec) 10 mg PO [facility] Last Admin: 01/27/18 22:04 Dose: Not Given Chlorhexidine Gluconate (Chlorhexidine 2% Cloth) 3 pack TOPICAL DAILY@0400 REPLACED BY [facility] Stop: 01/31/18 03:59 Last Admin: 01/28/18 11:58 Dose: Not Given Chlorhexidine Gluconate (Chlorhexidine 2% Cloth) 3 pack TOPICAL DAILY@0400 PRN PRN Reason: Extra cloth needed Stop: 01/31/18 03:59 Citalopram Hydrobromide (Celexa) 20 mg PO DAILY REPLACED BY [facility] Last Admin: 01/28/18 08:32 Dose: 20 mg Clopidogrel Bisulfate (Plavix) 75 mg PO DAILY REPLACED BY [facility] Last Admin: 01/28/18 08:32 Dose: 75 mg Gabapentin (Neurontin) 200 mg PO Q8HR REPLACED BY [facility] Last Admin: 01/28/18 10:00 Dose: Not Given Sodium Chloride (Ns Inj) 1,000 mls @ 100 mls/hr IV.SIG .Q10H REPLACED BY [facility] Last Admin: 01/28/18 11:59 Dose: Not Given Lactulose (Lactulose Liq) 30 ml PO DAILY PRN PRN Reason: SEVERE CONSITIPATION Melatonin (Melatonin) 5 mg PO HS REPLACED BY [facility] Last Admin: 01/28/18 09:59 Dose: Not Given Metoclopramide HCl (Reglan Inj) 5 mg IV.PUSH Q6HR PRN; Protocol PRN Reason: NAUSEA OR VOMITING Metoprolol Tartrate (Lopressor) 25 mg PO BID REPLACED BY [facility] Morphine Sulfate (Morphine Inj) 2 mg IV.PUSH Q4H PRN PRN Reason: Acute Pain Nitroglycerin (Nitrostat Sl) 0.4 mg SL Q5M PRN PRN Reason: CHEST PAIN Ondansetron HCl (Zofran Odt) 4 mg PO Q6H PRN PRN Reason: NAUSEA OR VOMITING Last Admin: 01/28/18 08:31 Dose: 4 mg Pantoprazole Sodium (Protonix Inj) 40 mg IV.PUSH Q12H REPLACED BY [facility] Last Admin: 01/28/18 08:27 Dose: Not Given Senna/Docusate Sodium (Sandra-Colace) 1 tab PO BID REPLACED BY [facility] Last Admin: 01/28/18 08:32 Dose: Not Given Senna/Docusate Sodium (Sandra-Colace) 1 tab PO BID REPLACED BY [facility] Last Admin: 01/28/18 09:59 Dose: Not Given Sennosides (Senokot) 17.2 mg PO Q12H PRN PRN Reason: Moderate Constipation Sodium Chloride (Ns Flush) 2 ml IV.FLUSH BID REPLACED BY [facility] Last Admin: 01/28/18 10:01 Dose: 2 ml Sodium Chloride (Ns Flush) 2 ml IV.FLUSH UNSCH PRN PRN Reason: FLUSH AFTER USING IV ACCESS Sodium Chloride (Sodium Chloride) 1 gm PO TID MAL Last Admin: 01/28/18 08:32 Dose: 1 gm Allergies Allergy/AdvReac Type Severity Reaction Status Date / Time No Known Allergies Allergy Verified 01/01/18 14:05 Advance Directives Living Will: No Healthcare Surrogate: Yes ( and DNR) Physical Exam Vital Signs: Vital Signs - 24 hr 01/27/18 15:00 01/27/18 21:45 01/27/18 23:00 Temperature 98.4 F Pulse Rate 90 100 H 86 Respiratory Rate 16 Blood Pressure 108/60 Pulse Oximetry 99 01/28/18 03:00 01/28/18 05:04 01/28/18 07:00 Temperature 98.4 F 98.6 F 97.7 F Pulse Rate 100 H 98 H 117 H Respiratory Rate 16 16 22 Blood Pressure 124/67 123/73 132/86 Pulse Oximetry 96 97 97 01/28/18 08:00 01/28/18 09:00 01/28/18 10:00 Temperature Pulse Rate 124 H 98 H 88 Respiratory Rate Blood Pressure Pulse Oximetry 97 01/28/18 11:00 Temperature Pulse Rate 100 H Respiratory Rate 20 Blood Pressure 116/55 L Pulse Oximetry 97 I&O: Intake & Output 01/26/18 01/27/18 01/28/18 01/29/18 06:59 06:59 06:59 06:59 Intake Total 800 / 800 2774 / 2774 900 / 900 1150 / 1150 Output Total 1000 / 1000 800 / 800 Balance 800 / 800 1774 / 1774 100 / 100 1150 / 1150 Weight 83.915 kg 84.6 kg Physical Exam: CONSTITUTIONAL/GENERAL: This is a frail 82 year old. TUBES/LINES/DRAINS: SKIN: No jaundice, rashes, or lesions. Ecchymoses on upper extremities. HEAD: Atraumatic. Normocephalic. EYES: Pupils equal and round and reactive. Extraocular motions intact. No scleral icterus. No injection or drainage. Fundi not examined. ENT: Hearing grossly normal. Nose without bleeding or purulent drainage. Throat without visible erythema, exudates, masses, or lesions. NECK: Trachea midline. Supple, nontender. No palpable thyroid enlargement or nodularity. CARDIOVASCULAR: Regular rate and rhythm without murmurs, gallops, or rubs. No JVD. Peripheral pulses symmetric. RESPIRATORY/CHEST: Symmetric, unlabored respirations. Clear to auscultation. Breath sounds equal bilaterally. GASTROINTESTINAL: Abdomen soft, non-tender, nondistended. No hepato-splenomegaly , or palpable masses. No guarding. GENITOURINARY: Without palpable bladder distension. Mckeon catheter in place. MUSCULOSKELETAL: Extremities without clubbing, cyanosis, or edema. No joint tenderness or effusion noted. No calf tenderness. LYMPHATICS: No palpable cervical or supraclavicular adenopathy. NEUROLOGICAL: Awake and alert. Motor and sensory grossly within normal limits. Follows commands. Cognitively sharp. PSYCHIATRIC: No obvious anxiety/depression. no apparent hallucinations or other psychotic thought process. Diagnostic Tests Laboratory: Laboratory Results - last 72 hr 01/25/18 01/25/18 01/25/18 20:07 20:07 20:07 WBC 14.6 H RBC 2.45 L Hgb 7.4 L Hct 20.4 L* MCV 83.4 MCH 30.2 MCHC 36.2 H RDW 17.9 H Plt Count 413 MPV 9.5 Prelim Diff (Auto) Slide review pending Neut % (Auto) 86.0 H Lymph % (Auto) 6.1 L [place] % (Auto) 6.2 Eos % (Auto) 0.4 Baso % (Auto) 1.3 Neut # (Auto) 12.5 H Lymph # (Auto) 0.9 L [place] # (Auto) 0.9 Eos # (Auto) 0.1 Baso # (Auto) 0.2 WBC Differential Manual diff final Seg Neuts % (Manual) 84 H Band Neuts % (Manual) 6 Lymphocytes % (Manual) 4 L Monocytes % (Manual) 5 Basophils % (Manual) 1 Abs Neuts (Manual) 13.1 H Differential Comment . Toxic Granulation 2+ H Platelet Estimate Normal Platelet Morphology Normal Tear Drop Cells 1+ H Ovalocytes 2+ H Acanthocytes (Spur) Occ H PT 11.2 INR 1.1 APTT 23.6 L Sodium 138 Potassium 3.4 L Chloride 106 Carbon Dioxide 20.2 L Anion Gap 12 BUN 36 H Creatinine 0.90 Estimated GFR 81 L POC Glucose Random Glucose 175 H Lactic Acid Calcium 8.4 L Phosphorus Magnesium 1.9 Iron TIBC % Saturation Ferritin Total Bilirubin AST ALT Alkaline Phosphatase Total Creatine Kinase 43 Troponin I 0.22 H B-Natriuretic Peptide Total Protein Albumin Triglycerides Cholesterol LDL Cholesterol, Calc HDL Cholesterol Cholesterol/HDL Ratio Blood Type Blood Type Recheck Antibody Screen MTS Gel Crossmatch 01/25/18 01/25/18 01/25/18 20:07 21:09 21:09 WBC RBC Hgb Hct MCV MCH MCHC RDW Plt Count MPV Prelim Diff (Auto) Neut % (Auto) Lymph % (Auto) [place] % (Auto) Eos % (Auto) Baso % (Auto) Neut # (Auto) Lymph # (Auto) [place] # (Auto) Eos # (Auto) Baso # (Auto) WBC Differential Seg Neuts % (Manual) Band Neuts % (Manual) Lymphocytes % (Manual) Monocytes % (Manual) Basophils % (Manual) Abs Neuts (Manual) Differential Comment Toxic Granulation Platelet Estimate Platelet Morphology Tear Drop Cells Ovalocytes Acanthocytes (Spur) PT INR APTT Sodium Potassium Chloride Carbon Dioxide Anion Gap BUN Creatinine Estimated GFR POC Glucose Random Glucose Lactic Acid Calcium Phosphorus Magnesium Iron TIBC % Saturation Ferritin Total Bilirubin AST ALT Alkaline Phosphatase Total Creatine Kinase Troponin I B-Natriuretic Peptide 418 H Total Protein Albumin Triglycerides Cholesterol LDL Cholesterol, Calc HDL Cholesterol Cholesterol/HDL Ratio Blood Type A Positive Blood Type Recheck Not needed Antibody Screen Negative MTS Gel Crossmatch See Detail 01/26/18 01/26/18 01/26/18 02:38 05:18 08:45 WBC RBC Hgb 10.0 L D Hct 30.0 L MCV MCH MCHC RDW Plt Count MPV Prelim Diff (Auto) Neut % (Auto) Lymph % (Auto) [place] % (Auto) Eos % (Auto) Baso % (Auto) Neut # (Auto) Lymph # (Auto) [place] # (Auto) Eos # (Auto) Baso # (Auto) WBC Differential Seg Neuts % (Manual) Band Neuts % (Manual) Lymphocytes % (Manual) Monocytes % (Manual) Basophils % (Manual) Abs Neuts (Manual) Differential Comment Toxic Granulation Platelet Estimate Platelet Morphology Tear Drop Cells Ovalocytes Acanthocytes (Spur) PT INR APTT Sodium Potassium Chloride Carbon Dioxide Anion Gap BUN Creatinine Estimated GFR POC Glucose Random Glucose Lactic Acid Calcium Phosphorus Magnesium Iron TIBC % Saturation Ferritin Total Bilirubin AST ALT Alkaline Phosphatase Total Creatine Kinase Troponin I 0.73 H* 3.15 H* B-Natriuretic Peptide Total Protein Albumin Triglycerides Cholesterol LDL Cholesterol, Calc HDL Cholesterol Cholesterol/HDL Ratio Blood Type Blood Type Recheck Antibody Screen MTS Gel Crossmatch 01/26/18 01/26/18 01/26/18 09:47 13:25 13:25 WBC RBC Hgb 9.0 L Hct MCV MCH MCHC RDW Plt Count MPV Prelim Diff (Auto) Neut % (Auto) Lymph % (Auto) [place] % (Auto) Eos % (Auto) Baso % (Auto) Neut # (Auto) Lymph # (Auto) [place] # (Auto) Eos # (Auto) Baso # (Auto) WBC Differential Seg Neuts % (Manual) Band Neuts % (Manual) Lymphocytes % (Manual) Monocytes % (Manual) Basophils % (Manual) Abs Neuts (Manual) Differential Comment Toxic Granulation Platelet Estimate Platelet Morphology Tear Drop Cells Ovalocytes Acanthocytes (Spur) PT INR APTT Sodium Potassium Chloride Carbon Dioxide Anion Gap BUN Creatinine Estimated GFR POC Glucose Random Glucose Lactic Acid Calcium Phosphorus Magnesium Iron TIBC % Saturation Ferritin Total Bilirubin AST ALT Alkaline Phosphatase Total Creatine Kinase Troponin I 3.36 H* 3.91 H* B-Natriuretic Peptide Total Protein Albumin Triglycerides Cholesterol LDL Cholesterol, Calc HDL Cholesterol Cholesterol/HDL Ratio Blood Type Blood Type Recheck Antibody Screen MTS Gel Crossmatch 01/26/18 01/27/18 01/27/18 21:50 03:54 03:54 WBC 17.3 H RBC 2.84 L Hgb 8.5 L 8.1 L Hct 24.5 L MCV 86.1 MCH 28.4 MCHC 33.0 RDW 16.7 Plt Count 416 MPV 9.7 Prelim Diff (Auto) Neut % (Auto) 82.9 H Lymph % (Auto) 7.9 L [place] % (Auto) 7.7 Eos % (Auto) 0.5 Baso % (Auto) 1.0 Neut # (Auto) 14.3 H Lymph # (Auto) 1.4 [place] # (Auto) 1.3 H Eos # (Auto) 0.1 Baso # (Auto) 0.2 WBC Differential . Seg Neuts % (Manual) Band Neuts % (Manual) Lymphocytes % (Manual) Monocytes % (Manual) Basophils % (Manual) Abs Neuts (Manual) Differential Comment Auto diff final Toxic Granulation Platelet Estimate Platelet Morphology Tear Drop Cells Ovalocytes Acanthocytes (Spur) PT 11.0 INR 1.1 APTT 24.7 Sodium Potassium Chloride Carbon Dioxide Anion Gap BUN Creatinine Estimated GFR POC Glucose Random Glucose Lactic Acid Calcium Phosphorus Magnesium Iron TIBC % Saturation Ferritin Total Bilirubin AST ALT Alkaline Phosphatase Total Creatine Kinase Troponin I B-Natriuretic Peptide Total Protein Albumin Triglycerides Cholesterol LDL Cholesterol, Calc HDL Cholesterol Cholesterol/HDL Ratio Blood Type Blood Type Recheck Antibody Screen MTS Gel Crossmatch 01/27/18 01/27/18 01/27/18 03:54 03:54 09:37 WBC RBC Hgb Hct MCV MCH MCHC RDW Plt Count MPV Prelim Diff (Auto) Neut % (Auto) Lymph % (Auto) [place] % (Auto) Eos % (Auto) Baso % (Auto) Neut # (Auto) Lymph # (Auto) [place] # (Auto) Eos # (Auto) Baso # (Auto) WBC Differential Seg Neuts % (Manual) Band Neuts % (Manual) Lymphocytes % (Manual) Monocytes % (Manual) Basophils % (Manual) Abs Neuts (Manual) Differential Comment Toxic Granulation Platelet Estimate Platelet Morphology Tear Drop Cells Ovalocytes Acanthocytes (Spur) PT INR APTT Sodium 139 Potassium 4.0 Chloride 108 H Carbon Dioxide 23.5 Anion Gap 8 BUN 28 H Creatinine 0.80 Estimated GFR Greater than 89 POC Glucose Random Glucose 115 H Lactic Acid 1.1 Calcium 8.2 L Phosphorus 3.7 Magnesium 2.0 Iron TIBC % Saturation Ferritin Total Bilirubin 0.7 AST 20 ALT 16 Alkaline Phosphatase 65 Total Creatine Kinase Troponin I B-Natriuretic Peptide Total Protein 5.9 L Albumin 3.1 L Triglycerides 142 Cholesterol 79 L LDL Cholesterol, Calc 31 HDL Cholesterol 19.6 L Cholesterol/HDL Ratio 4.03 Blood Type Blood Type Recheck Antibody Screen [facility] Gel Crossmatch 01/27/18 01/27/18 01/27/18 13:42 22:28 22:40 WBC RBC Hgb 7.9 L 8.0 L Hct MCV MCH MCHC RDW Plt Count MPV Prelim Diff (Auto) Neut % (Auto) Lymph % (Auto) [place] % (Auto) Eos % (Auto) Baso % (Auto) Neut # (Auto) Lymph # (Auto) [place] # (Auto) Eos # (Auto) Baso # (Auto) WBC Differential Seg Neuts % (Manual) Band Neuts % (Manual) Lymphocytes % (Manual) Monocytes % (Manual) Basophils % (Manual) Abs Neuts (Manual) Differential Comment Toxic Granulation Platelet Estimate Platelet Morphology Tear Drop Cells Ovalocytes Acanthocytes (Spur) PT INR APTT Sodium Potassium Chloride Carbon Dioxide Anion Gap BUN Creatinine Estimated GFR POC Glucose 138 H Random Glucose Lactic Acid Calcium Phosphorus Magnesium Iron TIBC % Saturation Ferritin Total Bilirubin AST ALT Alkaline Phosphatase Total Creatine Kinase Troponin I B-Natriuretic Peptide Total Protein Albumin Triglycerides Cholesterol LDL Cholesterol, Calc HDL Cholesterol Cholesterol/HDL Ratio Blood Type Blood Type Recheck Antibody Screen MTS Gel Crossmatch 01/28/18 01/28/18 01/28/18 04:52 04:52 04:52 WBC 18.3 H RBC 2.71 L Hgb 7.9 L Hct 23.6 L MCV 87.3 MCH 29.1 MCHC 33.4 RDW 17.2 Plt Count 455 H MPV 10.0 Prelim Diff (Auto) Neut % (Auto) Lymph % (Auto) [place] % (Auto) Eos % (Auto) Baso % (Auto) Neut # (Auto) Lymph # (Auto) [place] # (Auto) Eos # (Auto) Baso # (Auto) WBC Differential Seg Neuts % (Manual) Band Neuts % (Manual) Lymphocytes % (Manual) Monocytes % (Manual) Basophils % (Manual) Abs Neuts (Manual) Differential Comment Toxic Granulation Platelet Estimate Platelet Morphology Tear Drop Cells Ovalocytes Acanthocytes (Spur) PT INR APTT Sodium 141 Potassium 4.1 Chloride 109 H Carbon Dioxide 22.5 Anion Gap 10 BUN 29 H Creatinine 0.87 Estimated GFR 84 L POC Glucose Random Glucose 118 H Lactic Acid Calcium 8.4 L Phosphorus Magnesium Iron 47 L TIBC 279 % Saturation 16.9 L Ferritin 561 H Total Bilirubin 0.6 AST 20 ALT 26 Alkaline Phosphatase 70 Total Creatine Kinase Troponin I B-Natriuretic Peptide Total Protein 6.0 L Albumin 3.3 L Triglycerides Cholesterol LDL Cholesterol, Calc HDL Cholesterol Cholesterol/HDL Ratio Blood Type Blood Type Recheck Antibody Screen MTS Gel Crossmatch Result Diagrams: 01/28/18 13:38 01/28/18 04:52 Imaging: Chest X-Ray 01/25/18 19:58 CONCLUSION: No acute abnormality is seen. Carotid Doppler Study 01/26/18 00:00 CONCLUSION: Plaque seen at the carotid bulb regions with elevated peak systolic velocity and elevated ICA/CCA ratios concerning for significant stenoses at the carotid bulb regions. The plaque on the right side appears irregular. Chest X-Ray 01/27/18 06:00 CONCLUSION: 1. Persistent left basilar consolidation/effusion 2. Developing airspace disease in the medial right lung base. Patient/Family Conference Present at Family Conference: Junito Zhong newly designated Health Care surrogate, over the telephone. Family Conference Location: Bedside, Telephone Issues Discussed: * Palliative care role, purpose, approach * Additional medical, psychosocial, and spiritual history * Patients general health, functional status, and cognitive changes in the months leading up to the current hospitalization * Patient/family understanding of the current medical problems * Patient/family understanding of prognosis * Patients goals of care as best understood from advance directives and/or conversations and/or values * Current medical treatment options and benefits/burdens of those options * Likely scenarios comparing ongoing aggressive care with a transition to comfort measures only * Questions answered to the best of my ability * Palliative care contact information provided Assessment and Plan - Disease Oriented Problem List (1) GI bleed Comment: not a candidate for endoscopy per GI. (2) CAD (coronary artery disease) Comment: s/p cabg x 3. All are now occulded again. Not a surgical candidate. (3) Left hemiparesis (4) CHF (congestive heart failure) (5) Hypertension, essential (6) Hyperlipidemia - Symptom Scale (1) Chest pain 0-10 Scale: Unable to quantify Comment: had been severe. now denies. (2) Fatigue 0-10 Scale: Unable to quantify Pertinent Non-Medical Issues: Psychosocial:, No children, No relatives. Served in the [employer]. Originally from [place]. 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 [facility] Basically wheelchair bound. Can stand with parallel bars with asssitance. he dos drag that left foot. Spiritual:unknown Legal:health care surrogate completed (junito Santa). community DNR completed Ethical issues impacting care: none. Important Contacts: Health Care Surrogate/ Friend Junito Santa. Prognosis: Pt has CAD, all 3 stents has reocculde. Pt not a surgical candidiate. Condition complicated by gi bleed, could not anticoagulat. Pt prognosis is poor. Code Status: No Code DNR Plan: == capacity. Has Capacity to make medical decisions. On my visit, pt is awake alert. He is able to tell me why he came in "chest pain," and about his heart condition "Its not good." He demonstrate insight to his illness and ability to weigh risk and benefits. == Health Care Surrogate: Junito Ambrosio. == Goals of care: I have reviewed his clinical condition including his heart, his anemia, gi bleed. Goals of care reviewed. Code status and Advance directive discussed and completed (16 min). He is amenable to hospice and comfort measures He states, "I just want to go home, if I have chest pain they give me nitro's," "I am ready to ." Decline further aggressive measures. He gave me permission to call his friend Junito Santa. Ms. Junito Santa is now the designated health care surrogate, and is amenable to serving. She is flying down from [place]. She is aware and support his decision to transition to comfort. She is aware of his decision to be DNR. She will meet with pt and hospice tomorrow. == Code: DNR: community DNR completed , advance directive completed. symptom: wyatt he endorse generalized fatigued. He denies chest pain currenlty or pain. I suggest cont nitro prn , have morphine and ativan available prn. Hospice has been consulted and will manage symptoms. == palliative care will follow as clinical conditions evolves. Pt and Health care surrogate know Palliative care will not be available tomorrow or the weekend. == Hospice will meet with pt and Ms. Arina rizvi. Appreciation Thank you for the opportunity to participate in the care of Felix Winchester. Attestation Attestation: To help prompt me to consider important information that might be impacting today's encounter and assessment, information from prior notes written by myself or my colleagues may have been "brought forward" into today's note. My signature on this note, however, is an attestation that I personally performed the exam, history, and/or decision-making noted today, and, unless otherwise indicated, the interactions with patient, family, and staff as well as the review of records all occurred today. I also attest that the listed assessment and stated plan reflect my best clinical judgment today based on the combination of historical information, prior notes, and today's exam/ interactions. When time spent is documented, it refers only to time spent today by the signer, or if indicated, combined time spent today by collaborating physician/nurse practitioner.
[2018-01-28 16:04] LABS: Reticulocyte Percent 7.1 % (0.4-3.0)
[2018-01-29] MEDS: Melatonin 5 MG Tablet PO SCH ×2 (01:50→20:46)
[2018-01-29] MEDS: Senna/Docusate Sodium 8.6/50 MG Tablet PO SCH ×6 (01:51→20:50)
[2018-01-29] MEDS: Sod Chloride 0.9% Inj 1,000 ML IV.SIG SCH ×4 (01:52→23:01)
[2018-01-29] MEDS: Metoprolol Tartrate 25 MG Tablet PO SCH ×2 (08:18→20:49)
[2018-01-29] MEDS: Citalopram 20 MG Tablet PO SCH (08:18)
[2018-01-29] MEDS: Sodium Chloride 1 GM Tablet PO SCH ×3 (08:18→17:14)
[2018-01-29] MEDS: Chlorhexidine Gluconate 2% 1 Pack (2 Cloths) TOPICAL SCH (08:25)
[2018-01-29] MEDS: Pantoprazole Inj 40 MG Vial IV.PUSH SCH ×2 (08:25→14:35)
[2018-01-29] MEDS: Gabapentin 100 MG Capsule PO SCH ×3 (08:26→22:47)
--- NOTE | 2018-01-29 10:26 | P.PNIM ---
Subjective Interval history: Patient says he is feeling fatigued. Denies any chest pain. Does report some nausea, decreased appetite. Physical Exam Vital signs: Vital Signs 01/28/18 11:00 01/28/18 12:00 01/28/18 13:00 Temperature Pulse Rate 100 H 106 H 86 Respiratory Rate 20 Blood Pressure 116/55 L Pulse Oximetry 97 01/28/18 15:00 01/28/18 16:00 01/28/18 17:00 Temperature 98.9 F Pulse Rate 95 H 96 H 94 H Respiratory Rate 20 Blood Pressure 119/63 Pulse Oximetry 96 01/28/18 18:00 01/28/18 20:00 01/28/18 21:27 Temperature 98.7 F Pulse Rate 92 H 89 Respiratory Rate 16 Blood Pressure 121/78 Pulse Oximetry 97 96 01/29/18 00:00 01/29/18 02:00 01/29/18 03:00 Temperature 98.6 F 98.6 F Pulse Rate 98 H 59 L 83 Respiratory Rate 16 18 Blood Pressure 122/73 120/76 Pulse Oximetry 96 98 01/29/18 04:00 01/29/18 05:00 01/29/18 06:00 Temperature Pulse Rate 66 86 66 Respiratory Rate Blood Pressure Pulse Oximetry Intake & Output 01/28/18 01/29/18 01/29/18 18:59 06:59 18:59 Intake Total 1610 / 1610 420 / 420 0 / 0 Output Total 125 / 125 200 / 200 Balance 1485 / 1485 220 / 220 0 / 0 Weight 84.5 kg Intake: IV 1150 / 1150 0 / 0 NS Inj 1,000 ML @ 100 mls/hr IV 1000 / 1000 .SIG .Q10H MAL Rx#:[id number] Oral 460 / 460 420 / 420 Output: Urine 125 / 125 200 / 200 Other: # Voids 3 # Incontinent Voids 1 2 Date of Last Bowel Movement 01/28/18 01/28/18 # Bowel Movements 2 0 Narrative: GENERAL: Patient lying in bed. Appears comfortable. SKIN: Warm and dry. HEAD: Normocephalic. EYES: No scleral icterus. No injection or drainage. NECK: Supple, trachea midline. No JVD. CARDIOVASCULAR: Tachycardic. Irregularly irregular. Without murmurs, gallops, or rubs. RESPIRATORY: Breath sounds equal bilaterally. No accessory muscle use. GASTROINTESTINAL: Abdomen soft, non-tender, nondistended. MUSCULOSKELETAL: No cyanosis, or edema. BACK: Nontender without obvious deformity. No CVA tenderness. Results - Labs CBC & Chem 7: 01/28/18 21:50 01/28/18 04:52 Laboratory Results - last 24 hr 01/28/18 01/28/18 01/28/18 13:38 15:50 21:50 Hgb 8.1 L 8.9 L Retic Count 7.1 H Absolute Retic 208.1 H POC Glucose 01/28/18 22:26 Hgb Retic Count Absolute Retic POC Glucose 153 H - Imaging Impressions Chest X-Ray 01/27/18 06:00 CONCLUSION: 1. Persistent left basilar consolidation/effusion 2. Developing airspace disease in the medial right lung base. Assessment and Plan - Plan //Non-STEMI -Not a candidate for anticoagulation. -Hemoglobin remained stable overnight I will restart the home aspirin today and Plavix from 01/28/18 if Hb stable -Continue statins, change metoprolol to p.o. -Closely monitor hemoglobin. -Cardiac cath showed occluded grafts, EF 35-40%. -Not a candidate for redo CABG -Cardiology consultation appreciated = 01/28. Very difficult situation. Patient agrees with palliative care consultation. = 01/29. Appreciate palliative care consultation. Hospice consult pending. //Nausea. This is likely secondary to NSTEMI antiemetics as necessary. 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 Previously felt to base suspected secondary to GI bleeding -Protonix IV twice daily -Patient is deemed high risk for procedures -No EGD planned unless there is active bleeding = Hemoglobin currently stable. Ferritin is actually high. Pending hematology consultation. //A. fib with RVR -Metoprolol IV every 6 hours for rate control-change to PO = 01/28. Heart rate in the 120s A. fib RVR. Will increase metoprolol by mouth = 01/29. Heart rate controlled on increased dose of metoprolol. Continue to monitor. //Dyslipidemia -Atorvastatin //Depressions -Celexa //Peripheral neuropathy -Gabapentin //DVT GI prophylaxis -Teds SCDs -No pharmacological DVT prophylaxis due to GI bleed -Protonix IV twice daily Discharge Planning: Palliative care consulted.
--- NOTE | 2018-01-29 10:35 | P.CON ---
History of Present Illness Service: Hematology Consult date: 01/29/18 Requesting Physician: Sathya Smyth Reason for Consult: Anemia. Primary Care Provider: [facility] Family Provider: Billie Stewart MD Chief Complaint: Generalized weakness, difficulty breathing. History of Present Illness: Mr. 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 The patient is , he has no children of his own and lives at home by himself in the [facility]. The patient reports last having felt well in December, he suffered a stroke which resulted in left-sided weakness at that time and tells me he has not been able to live independently ever since. Mr. Winchester presented to [facility] on 01[facility]25[facility]2018 with complaints of chest pain, he had also reported melanotic stools and was reportedly found to have stool positive for occult blood. He was anemic at the time of presentation with a hemoglobin of 7.4 g/dL. The patient does have a history of GI bleeding with EGD findings in 2009 indicating large duodenal bulb ulceration. Patient himself denies having noticed overt bleeding but admits he had not been "paying close attention to stools ". The hematology service is been asked to see him for further workup and management of anemia. Of note at the time of presentation the patient was noted to have elevated cardiac enzymes and underwent cardiac evaluation, he was found to have multivessel cardiac disease, he was recommended evaluation by cardiovascular surgery for surgical revascularization but was assessed to be very high risk. He was evaluated by interventional cardiology as well however the patient has been assessed to be at high risk for poor outcomes due to increased cardiovascular risk. 1 of the reasons for high risk identified by the interventional cardiology team is the patient's "unexplained anemia ". An anemia workup indicates equivocal findings as far as serum iron studies are concerned, the patient does have depleted serum iron level, depleted percent iron saturation but elevated ferritin level. I am unable to identify stool for occult blood test which has been documented in the system. The patient has been evaluated by the palliative care service and apparently a hospice evaluation is pending as well. The patient himself tells me that he is not sure exactly what the plan is, he has been informed that he may be going to [facility] versus hospice. Review of Systems Constitutional: Reports anorexia, Reports daytime sleepiness, Reports lack of energy, Reports weakness, Reports weight loss, Denies body ache(s), Denies chills Eyes: Reports blind spots Ears, Nose, Mouth, and Throat: Denies abnormal hearing Cardiovascular: Reports chest pain, Reports shortness of breath Respiratory: Reports shortness of breath with activity, Denies chest congestion , Denies cough, Denies coughing up blood Gastrointestinal: Denies abdominal pain, Denies belching Genitourinary: Denies blood in urine Musculoskeletal: Denies abnormal walking Skin/Breast: Denies bleeding lesions Neurologic: Reports abnormal hearing, Reports memory loss Endocrine: Denies cold intolerance Hematologic/Lymphatic: Denies easy bleeding Allergic/Immunologic: Denies GI upset with certain foods PMFSH - History History 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, 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 - Medical History Medical History: Medical History (Last Updated 01/29/18 @ 10:20 by Juan Jose Ware MD) Abnormal colonoscopy (Acute) Atrial fibrillation Diabetes Duodenal ulcer Heart attack High cholesterol Hypertension Major depressive disorder Stroke - Surgical History Surgical History: Surgical History (Last Updated 01/28/18 @ 12:57 by Guanaco Patel MD) S/P CABG x 3 (Acute) History of esophagogastroduodenoscopy (EGD) (Acute) - Family History Family History: Family History (Last Updated 01/28/18 @ 12:58 by Guanaco Patel MD) Mother Bile duct cancer Father Cerebral hemorrhage - Tobacco History Second Hand Smoke Exposure: No Tobacco Use In Past 30 Days: No Smoking Status: Former smoker - Alcohol History How Often Do You Have a Drink Containing Alcohol: Never - Substance Use History Substance History: No History of Abuse - Travel History Recent Travel in the [place] Within the Last 8 Weeks: No Recent Travel Out of the Country Within the Last 8 Weeks: No - Immunization History Tetanus Immunization: Unsure Hx Influenza Vaccine This Season: No Medications and Allergies Active Medications: Active Medications Acetaminophen (Tylenol) 650 mg PO Q4H PRN PRN Reason: Temp > 100.4 Al Hydroxide/Mg Hydroxide (Milk Of Magnesia Liq) 30 ml PO Q12H PRN PRN Reason: Mild Constipation Albuterol (Duoneb Neb (Prn)) 1 ampul NEB Q2HR NEB PRN PRN Reason: WHEEZING Aspirin (Ecotrin) 81 mg PO DAILY [facility] Last Admin: 01/29/18 08:20 Dose: 81 mg Atorvastatin Calcium (Lipitor) 40 mg PO [facility] Last Admin: 01/28/18 22:22 Dose: 40 mg Bisacodyl (Dulcolax Supp) 10 mg RECTAL DAILY PRN PRN Reason: SEVERE CONSITIPATION Bisacodyl (Dulcolax Ec) 10 mg PO [facility] Last Admin: 01/29/18 01:50 Dose: Not Given Chlorhexidine Gluconate (Chlorhexidine 2% Cloth) 3 pack TOPICAL DAILY@0400 MAL Stop: 01/31/18 03:59 Last Admin: 01/29/18 08:25 Dose: Not Given Chlorhexidine Gluconate (Chlorhexidine 2% Cloth) 3 pack TOPICAL DAILY@0400 PRN PRN Reason: Extra cloth needed Stop: 01/31/18 03:59 Citalopram Hydrobromide (Celexa) 20 mg PO DAILY [facility] Last Admin: 01/29/18 08:18 Dose: 20 mg Clopidogrel Bisulfate (Plavix) 75 mg PO DAILY [facility] Last Admin: 01/29/18 08:18 Dose: 75 mg Gabapentin (Neurontin) 200 mg PO Q8HR [facility] Last Admin: 01/29/18 08:26 Dose: Not Given Sodium Chloride (Ns Inj) 1,000 mls @ 100 mls/hr IV.SIG .Q10H [facility] Last Admin: 01/29/18 08:26 Dose: Not Given Lactulose (Lactulose Liq) 30 ml PO DAILY PRN PRN Reason: SEVERE CONSITIPATION Melatonin (Melatonin) 5 mg PO [facility] Last Admin: 01/29/18 01:50 Dose: Not Given Metoclopramide HCl (Reglan Inj) 5 mg IV.PUSH Q6HR PRN; Protocol PRN Reason: NAUSEA OR VOMITING Last Admin: 01/28/18 13:06 Dose: 5 mg Metoprolol Tartrate (Lopressor) 25 mg PO BID [facility] Last Admin: 01/29/18 08:18 Dose: 25 mg Morphine Sulfate (Morphine Inj) 2 mg IV.PUSH Q4H PRN PRN Reason: Acute Pain Last Admin: 01/28/18 17:52 Dose: 2 mg Nitroglycerin (Nitrostat Sl) 0.4 mg SL Q5M PRN PRN Reason: CHEST PAIN Last Admin: 01/28/18 17:53 Dose: 0.4 mg Ondansetron HCl (Zofran Odt) 4 mg PO Q6H PRN PRN Reason: NAUSEA OR VOMITING Last Admin: 01/28/18 15:53 Dose: 4 mg Pantoprazole Sodium (Protonix Inj) 40 mg IV.PUSH Q12H [facility] Last Admin: 01/29/18 08:25 Dose: Not Given Senna/Docusate Sodium (Sandra-Colace) 1 tab PO BID [facility] Last Admin: 01/29/18 08:18 Dose: 1 tab Senna/Docusate Sodium (Sandra-Colace) 1 tab PO BID [facility] Last Admin: 01/29/18 08:26 Dose: Not Given Sennosides (Senokot) 17.2 mg PO Q12H PRN PRN Reason: Moderate Constipation Sodium Chloride (Ns Flush) 2 ml IV.FLUSH BID [facility] Last Admin: 01/29/18 08:20 Dose: 2 ml Sodium Chloride (Ns Flush) 2 ml IV.FLUSH UNSCH PRN PRN Reason: FLUSH AFTER USING IV ACCESS Sodium Chloride (Sodium Chloride) 1 gm PO TID [facility] Last Admin: 01/29/18 08:18 Dose: 1 gm Allergies Allergy/AdvReac Type Severity Reaction Status Date / Time No Known Allergies Allergy Verified 01/01/18 14:05 Physical Exam Vital signs: Vital Signs 01/28/18 11:00 01/28/18 12:00 01/28/18 13:00 Temperature Pulse Rate 100 H 106 H 86 Respiratory Rate 20 Blood Pressure 116/55 L Pulse Oximetry 97 01/28/18 15:00 01/28/18 16:00 01/28/18 17:00 Temperature 98.9 F Pulse Rate 95 H 96 H 94 H Respiratory Rate 20 Blood Pressure 119/63 Pulse Oximetry 96 01/28/18 18:00 01/28/18 20:00 01/28/18 21:27 Temperature 98.7 F Pulse Rate 92 H 89 Respiratory Rate 16 Blood Pressure 121/78 Pulse Oximetry 97 96 01/29/18 00:00 01/29/18 02:00 01/29/18 03:00 Temperature 98.6 F 98.6 F Pulse Rate 98 H 59 L 83 Respiratory Rate 16 18 Blood Pressure 122/73 120/76 Pulse Oximetry 96 98 01/29/18 04:00 01/29/18 05:00 01/29/18 06:00 Temperature Pulse Rate 66 86 66 Respiratory Rate Blood Pressure Pulse Oximetry Intake & Output 01/28/18 01/29/18 01/29/18 18:59 06:59 18:59 Intake Total 1610 / 1610 420 / 420 0 / 0 Output Total 125 / 125 200 / 200 Balance 1485 / 1485 220 / 220 0 / 0 Weight 84.5 kg Intake: IV 1150 / 1150 0 / 0 NS Inj 1,000 ML @ 100 mls/hr IV 1000 / 1000 .SIG .Q10H MAL Rx#:[id number] Oral 460 / 460 420 / 420 Output: Urine 125 / 125 200 / 200 Other: # Voids 3 # Incontinent Voids 1 2 Date of Last Bowel Movement 01/28/18 01/28/18 # Bowel Movements 2 0 - Constitutional no acute distress, chronically ill appearing Comments: Elderly male, laying in bed, he appears to be frail and pale appearing. He talks to me in full sentences, he is alert and oriented. . - Routine HEENT Exam Head: Present: normocephalic Eye: Present: EOMI, PERRL ENT: Present: mucous membranes moist - Routine Neck Exam Present: supple. Absent: full ROM, JVD - Routine Respiratory Exam Present: CTA bilaterally, distant breath sounds. Absent: accessory muscle use, respiratory distress, rhonchi, stridor, wheezes, crackles - Routine Cardiovascular Exam Present: RRR, S1, S2 - Routine Abdominal Exam Present: soft. Absent: normoactive bowel sounds, tenderness, distended, rebound - Routine Extremities Exam Present: pallor. Absent: cyanosis, clubbing, edema Comments: Generally decreased muscle mass and tone. - Routine Neurological Exam Present: alert, oriented X3, CN II-XII intact, moving all extremities, tremors Generally decreased muscle mass and tone. He has a coarse tremor of his legs which almost appears as a "twitch". - Detailed Neurological Exam: Coma Scale Eye Opening: Spontaneous - Routine Psychiatric Exam Present: normal affect Assessment and Plan - Plan Mr. Winchester is an 82-year-old man with a history of cardiovascular disease, extensive history of tobaccoism, history of upper GI bleeding with endoscopy performed in 2009 which revealed a large duodenal bulb ulcer (performed by Dr. Renae). Found to have stool positive for occult blood in the emergency department at the time of this admission. Presented with chest pain, found to have troponin enzyme elevation and multivessel coronary artery disease. 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 1 of the reasons cited by cardiology for increased risk for adverse outcomes his anemia which is unexplained. Hematology is been asked to see him presumably to rule out a primary hematologic disorder with resultant anemia. Recommendations: 1. Anemia: I will review his peripheral slide to assess for dysmorphic or dysplastic features. 2. Request stool for occult blood testing. 3. Obtain serum protein electro pheresis. 4. I would imagine a GI evaluation with direct visualization of the upper GI tract is in order to identify any bleeding lesions since he has had well- documented duodenal bulb ulcers in the past. When coupled with findings of "melanotic stools" at the time of presentation I would suspect that this should be a leading differential as to the cause of his anemia. If definitive cardiac management with CLICKING MACHINE OPERATOR is warranted I would imagine a GI evaluation should precede that to allow this man to get potentially life saving treatment. I am somewhat confused at the goals of care because between the various specialists seeing this patient including cardiology, GI, hematology and now palliative care it appears the patient is being steered towards hospice. I will talk to the hospitalist service to help me understand what the specific goals of care are as management certainly will depend on how aggressive this patient would like to be. I would also like to add that when I talked to the patient about his goals of care he seems somewhat indifferent but has certainly not ruled out aggressive disease directed therapy including percutaneous stent placement should he need it, he is not ruled out undergoing an EGD and he seems not to have ruled out the idea of rehab. Thank you for this consultation.
--- NOTE | 2018-01-29 13:54 | P.PNCA ---
Subjective Interval history: asleep in nad Physical Exam Vital signs: Vital Signs 01/28/18 15:00 01/28/18 16:00 01/28/18 17:00 Temperature 98.9 F Pulse Rate 95 H 96 H 94 H Respiratory Rate 20 Blood Pressure 119/63 Pulse Oximetry 96 01/28/18 18:00 01/28/18 20:00 01/28/18 21:27 Temperature 98.7 F Pulse Rate 92 H 89 Respiratory Rate 16 Blood Pressure 121/78 Pulse Oximetry 97 96 01/29/18 00:00 01/29/18 02:00 01/29/18 03:00 Temperature 98.6 F 98.6 F Pulse Rate 98 H 59 L 83 Respiratory Rate 16 18 Blood Pressure 122/73 120/76 Pulse Oximetry 96 98 01/29/18 04:00 01/29/18 05:00 01/29/18 06:00 Temperature Pulse Rate 66 86 66 Respiratory Rate Blood Pressure Pulse Oximetry 01/29/18 07:00 01/29/18 08:00 01/29/18 09:00 Temperature 97.6 F Pulse Rate 82 81 85 Respiratory Rate 18 Blood Pressure 115/82 Pulse Oximetry 95 95 01/29/18 10:00 01/29/18 11:00 01/29/18 12:00 Temperature 97.7 F Pulse Rate 74 93 H 96 H Respiratory Rate 18 Blood Pressure 121/66 Pulse Oximetry 96 01/29/18 12:51 Temperature Pulse Rate 87 Respiratory Rate Blood Pressure Pulse Oximetry Intake & Output 01/28/18 01/29/18 01/29/18 18:59 06:59 18:59 Intake Total 1610 / 1610 420 / 420 0 / 0 Output Total 125 / 125 200 / 200 Balance 1485 / 1485 220 / 220 0 / 0 Weight 84.5 kg Intake: IV 1150 / 1150 0 / 0 NS Inj 1,000 ML @ 100 mls/hr IV 1000 / 1000 .SIG .Q10H MAL Rx#:[id number] Oral 460 / 460 420 / 420 Output: Urine 125 / 125 200 / 200 Other: # Voids 3 # Incontinent Voids 1 2 Date of Last Bowel Movement 01/28/18 01/28/18 # Bowel Movements 2 0 Assessment and Plan - Assessment (1) NSTEMI (non-ST elevated myocardial infarction) Code(s): I21.4 - Non-ST elevation (NSTEMI) myocardial infarction Status: Acute (2) CAD (coronary artery disease) Code(s): I25.10 - Atherosclerotic heart disease of [place] coronary artery without angina pectoris Status: Acute (3) Anemia Code(s): D64.9 - Anemia, unspecified Status: Acute (4) Anemia Code(s): D64.9 - Anemia, unspecified Status: Acute (5) Right-sided lacunar stroke Code(s): I63.9 - Cerebral infarction, unspecified Status: Acute (6) Left hemiparesis Code(s): G81.94 - Hemiplegia, unspecified affecting left nondominant side Status: Acute (7) Impaired mobility and activities of daily living Code(s): Z74.09 - Other reduced mobility Status: Acute (8) Recurrent falls while walking Code(s): R29.6 - Repeated falls Status: Acute (9) CHF (congestive heart failure) Code(s): I50.9 - Heart failure, unspecified Status: Chronic (10) Hypertension, essential Code(s): I10 - Essential (primary) hypertension Status: Chronic (11) Diabetes mellitus Code(s): E11.9 - Type 2 diabetes mellitus without complications Status: Chronic (12) Hyperlipidemia Code(s): E78.5 - Hyperlipidemia, unspecified Status: Acute - Plan 1.) CAD - severe 3 vessel cad, severe anemia too high risk for cabg per Dr Hernandez, risk of pci is high due to severe anemia with undiagnosed etiolgy with uncertainty of bleeding with ac and dapt; therefore rec referral to high risk center for eval for high risk cabg or pci ow if not a transfer candidate rec palliative care and hospice; case management and palliative care consult placed , d/w nursing and patient 2.) Anemia - anesthesia refused anesthesia as patient presented with nstemi, ccs class 4 angina is high risk for noncardiac procedure, therefore endoscopy not done; pci not done due to high risk for bleeding, multivessel cad, and indeterminate bleeding source (9) CHF (congestive heart failure) Qualifiers: Heart failure type: systolic Heart failure chronicity: acute on chronic Qualified Code(s): I50.23 - Acute on chronic systolic (congestive) heart failure (11) Diabetes mellitus Qualifiers: Diabetes mellitus type: type 2 Diabetes mellitus nursing home insulin use: without nursing home use Diabetes mellitus complication status: without complication Qualified Code(s): E11.9 - Type 2 diabetes mellitus without complications (12) Hyperlipidemia Qualifiers: Hyperlipidemia type: mixed hyperlipidemia Qualified Code(s): E78.2 - Mixed hyperlipidemia
--- NOTE | 2018-01-29 14:41 | ECG ---
Date Performed: 01/28/2018 Time Performed: 18:08:14 PTAGE: 82 years EKG: Atrial fibrillation with rapid ventricular response Inferior/lateral ST-T changes are nonsp ecific Abnormal ECG NO PREVIOUS TRACING DOCTOR: Mendez Ray Interpretating Date/Time 01/29/2018 14:39:44
[2018-01-30] MEDS: Pantoprazole Inj 40 MG Vial IV.PUSH SCH ×2 (03:30→14:53)
[2018-01-30] MEDS: Chlorhexidine Gluconate 2% 1 Pack (2 Cloths) TOPICAL SCH (03:31)
[2018-01-30 04:33] LABS: Baso # (Auto) 0.1 th/mm3 (0.0-0.2); Baso % (Auto) 0.3 % (0.0-2.0); Eos % (Auto) 0.1 % (0.0-4.0); Hemoglobin 8.5 gm/dL (13.0-17.0); Lymph # (Auto) 1.7 th/mm3 (1.0-4.8); Lymph % (Auto) 5.6 % (9.0-44.0); Mean Corpuscular HGB Conc 32.6 % (32.0-36.0); Mean Corpuscular Hemoglobin 28.7 pg (27.0-34.0); Mean Corpuscular Volume 88.1 fL (80.0-100.0); Mean Platelet Volume 10.7 fL (7.0-11.0); Mono # (Auto) 1.4 th/mm3 (0.0-0.9); Mono % (Auto) 4.7 % (0.0-8.0); Neut # (Auto) 27.3 th/mm3 (1.8-7.7); Neut % (Auto) 89.3 % (16.0-70.0); Platelet Count 646 th/mm3 (150-450); Red Blood Count 2.95 mil/mm3 (4.50-5.90); Red Cell Distribution Width 18.1 % (11.6-17.2); White Blood Count 30.5 th/mm3 (4.0-11.0)
[2018-01-30 05:17] LABS: Alanine Aminotransferase 2822 U/L (12-78); Albumin 3.2 g/dL (3.4-5.0); Alkaline Phosphatase 124 U/L (45-117); Anion Gap 12 meq/L (5-15); Aspartate Aminotransferase 2536 U/L (15-37); Blood Urea Nitrogen 55 mg/dL (7-18); Calcium 8.2 mg/dL (8.5-10.1); Carbon Dioxide 19.1 meq/L (21.0-32.0); Chloride 106 meq/L (98-107); Glomerular Filtration Rate 44 mL/min (>89); Glucose,Random 114 mg/dL (74-106); Potassium 4.5 meq/L (3.5-5.1); Sodium 137 meq/L (136-145); Total Protein 6.1 g/dL (6.4-8.2)
[2018-01-30] MEDS: Gabapentin 100 MG Capsule PO SCH ×2 (05:55→14:53)
[2018-01-30 06:17] LABS: Lymphocytes 6 % (9-44); Monocytes 3 % (0-8); Myelocytes 2 % (0-0); Tallied Nucleated RBC 4 (0-0)
[2018-01-30 06:18] LABS: Ovalocytes 1+; Platelet Morphology Normal (Normal); Toxic Granulation 2+
[2018-01-30 06:19] LABS: Acanthocytes 1+
[2018-01-30 06:20] LABS: Burr Cells 1+
[2018-01-30] MEDS: Metoprolol Tartrate 25 MG Tablet PO SCH ×2 (08:08→22:10)
[2018-01-30] MEDS: Sodium Chloride 1 GM Tablet PO SCH ×3 (08:08→17:12)
[2018-01-30] MEDS: Senna/Docusate Sodium 8.6/50 MG Tablet PO SCH ×4 (08:08→22:12)
[2018-01-30] MEDS: Citalopram 20 MG Tablet PO SCH (08:08)
[2018-01-30] MEDS: Sod Chloride 0.9% Inj 1,000 ML IV.SIG SCH ×2 (08:09→14:52)
--- NOTE | 2018-01-30 10:11 | P.PNIM ---
Subjective Interval history: Patient lying in bed. Denies any chest pain. Does report continued shortness of breath. Denies any nausea or vomiting. Patient has a friend at bedside. Physical Exam Vital signs: Vital Signs 01/29/18 11:00 01/29/18 12:00 01/29/18 12:51 Temperature 97.7 F Pulse Rate 93 H 96 H 87 Respiratory Rate 18 Blood Pressure 121/66 Pulse Oximetry 96 01/29/18 14:00 01/29/18 15:00 01/29/18 15:49 Temperature 98.2 F Pulse Rate 103 H 92 H Respiratory Rate 18 Blood Pressure 112/79 Pulse Oximetry 97 93 L 01/29/18 15:52 01/29/18 16:26 01/29/18 17:11 Temperature Pulse Rate 87 97 H 88 Respiratory Rate Blood Pressure Pulse Oximetry 01/29/18 19:00 01/29/18 19:42 01/29/18 20:00 Temperature 99.0 F Pulse Rate 98 H 99 H 94 H Respiratory Rate 20 Blood Pressure 122/61 Pulse Oximetry 95 01/29/18 21:00 01/29/18 22:00 01/29/18 23:00 Temperature Pulse Rate 98 H 94 H 92 H Respiratory Rate Blood Pressure Pulse Oximetry 01/29/18 23:19 01/30/18 00:00 01/30/18 01:00 Temperature 98.0 F Pulse Rate 77 92 H 94 H Respiratory Rate 20 Blood Pressure 143/64 H Pulse Oximetry 96 01/30/18 02:00 01/30/18 03:00 01/30/18 03:20 Temperature 98.4 F Pulse Rate 94 H 94 H 97 H Respiratory Rate 21 Blood Pressure 119/65 Pulse Oximetry 95 01/30/18 04:00 01/30/18 05:00 01/30/18 06:00 Temperature Pulse Rate 90 94 H 102 H Respiratory Rate Blood Pressure Pulse Oximetry 01/30/18 07:00 01/30/18 08:00 01/30/18 09:00 Temperature 97.6 F Pulse Rate 96 H 109 H 98 H Respiratory Rate 20 Blood Pressure 120/72 Pulse Oximetry 93 L Intake & Output 01/29/18 01/30/18 01/30/18 18:59 06:59 18:59 Intake Total 360 / 360 1120 / 1120 900 / 900 Output Total 400 / 400 400 / 400 Balance -40 / -40 720 / 720 900 / 900 Weight 86 kg Intake: IV 0 / 0 1000 / 1000 900 / 900 NS Inj 1,000 ML @ 100 mls/hr IV 1000 / 1000 900 / 900 .SIG .Q10H MAL Rx#:[id number] Oral 360 / 360 120 / 120 Output: Urine 400 / 400 400 / 400 Stool 0 / 0 Narrative: GENERAL: Patient lying in bed. Appears comfortable. SKIN: Warm and dry. HEAD: Normocephalic. EYES: No scleral icterus. No injection or drainage. NECK: Supple, trachea midline. No JVD. CARDIOVASCULAR: Tachycardic with heart rate of 100. Irregularly irregular. Without murmurs, gallops, or rubs. RESPIRATORY: Breath sounds equal bilaterally. No accessory muscle use. GASTROINTESTINAL: Abdomen soft, non-tender, nondistended. MUSCULOSKELETAL: No cyanosis, or edema. BACK: Nontender without obvious deformity. No CVA tenderness. Results - Labs CBC & Chem 7: 01/30/18 03:08 01/30/18 03:08 Laboratory Results - last 24 hr 01/29/18 01/30/18 01/30/18 12:06 03:08 03:08 WBC 30.5 H RBC 2.95 L Hgb 8.5 L Hct 26.0 L MCV 88.1 MCH 28.7 MCHC 32.6 RDW 18.1 H Plt Count 646 H D MPV 10.7 Prelim Diff (Auto) Slide review pending Neut % (Auto) 89.3 H Lymph % (Auto) 5.6 L Tillman % (Auto) 4.7 Eos % (Auto) 0.1 Baso % (Auto) 0.3 Neut # (Auto) 27.3 H Lymph # (Auto) 1.7 Tillman # (Auto) 1.4 H Eos # (Auto) 0.0 Baso # (Auto) 0.1 WBC Differential Manual diff final Seg Neuts % (Manual) 81 H Band Neuts % (Manual) 8 H Lymphocytes % (Manual) 6 L Monocytes % (Manual) 3 Myelocytes % (Man) 2 H Abs Neuts (Manual) 27.8 H Nucleated RBCs/100 WBC 4 H Differential Comment . Toxic Granulation 2+ H Platelet Estimate High H Platelet Morphology Normal Basophilic Stippling Faint H Ovalocytes 1+ H Ajay Cells 1+ H Acanthocytes (Spur) 1+ H Keratocytes Occ H Sodium 137 Potassium 4.5 Chloride 106 Carbon Dioxide 19.1 L Anion Gap 12 BUN 55 H Creatinine 1.54 H Estimated GFR 44 L Random Glucose 114 H Calcium 8.2 L Total Bilirubin 1.5 H AST 2536 H ALT 2822 H Alkaline Phosphatase 124 H Total Protein 6.1 L Total Protein (PEP) 6.2 L Albumin 3.2 L Vitamin B12 1388 H Folate 7.0 Assessment and Plan - Plan 01/30. Discussed with patient and patient's friend at bedside. Patient's friend is his healthcare surrogate. Patient would like to go to hospice, however would like to sign will and testament before going to hospice. //Acute transaminitis. Likely secondary to troponin elevation versus shock liver. Will check troponin and CK. //KIT. Creatinine 1.5 likely secondary to decreased cardiac output. Will check BNP, may need to hydrate //Non-STEMI -Not a candidate for anticoagulation. -Hemoglobin remained stable overnight I will restart the home aspirin today and Plavix from 01/28/18 if Hb stable -Continue statins, change metoprolol to p.o. -Closely monitor hemoglobin. -Cardiac cath showed occluded grafts, EF 35-40%. -Not a candidate for redo CABG -Cardiology consultation appreciated = 01/28. Very difficult situation. Patient agrees with palliative care consultation. = 01/29. Appreciate palliative care consultation. Hospice consult pending. //Nausea. This is likely secondary to NSTEMI antiemetics as necessary. 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 Previously felt to base suspected secondary to GI bleeding -Protonix IV twice daily -Patient is deemed high risk for procedures -No EGD planned unless there is active bleeding = Hemoglobin currently stable. Ferritin is actually high. Pending hematology consultation. //A. fib with RVR -Metoprolol IV every 6 hours for rate control-change to PO = 01/28. Heart rate in the 120s A. fib RVR. Will increase metoprolol by mouth = 01/29. Heart rate controlled on increased dose of metoprolol. Continue to monitor. //Dyslipidemia -Atorvastatin //Depressions -Celexa //Peripheral neuropathy -Gabapentin //DVT GI prophylaxis -Teds SCDs -No pharmacological DVT prophylaxis due to GI bleed -Protonix IV twice daily Discharge Planning: Palliative care consulted.
--- NOTE | 2018-01-30 13:13 | P.PNCA ---
Subjective Interval history: asleep in nad Physical Exam Vital signs: Vital Signs 01/29/18 14:00 01/29/18 15:00 01/29/18 15:49 Temperature 98.2 F Pulse Rate 103 H 92 H Respiratory Rate 18 Blood Pressure 112/79 Pulse Oximetry 97 93 L 01/29/18 15:52 01/29/18 16:26 01/29/18 17:11 Temperature Pulse Rate 87 97 H 88 Respiratory Rate Blood Pressure Pulse Oximetry 01/29/18 19:00 01/29/18 19:42 01/29/18 20:00 Temperature 99.0 F Pulse Rate 98 H 99 H 94 H Respiratory Rate 20 Blood Pressure 122/61 Pulse Oximetry 95 01/29/18 21:00 01/29/18 22:00 01/29/18 23:00 Temperature Pulse Rate 98 H 94 H 92 H Respiratory Rate Blood Pressure Pulse Oximetry 01/29/18 23:19 01/30/18 00:00 01/30/18 01:00 Temperature 98.0 F Pulse Rate 77 92 H 94 H Respiratory Rate 20 Blood Pressure 143/64 H Pulse Oximetry 96 01/30/18 02:00 01/30/18 03:00 01/30/18 03:20 Temperature 98.4 F Pulse Rate 94 H 94 H 97 H Respiratory Rate 21 Blood Pressure 119/65 Pulse Oximetry 95 01/30/18 04:00 01/30/18 05:00 01/30/18 06:00 Temperature Pulse Rate 90 94 H 102 H Respiratory Rate Blood Pressure Pulse Oximetry 01/30/18 07:00 01/30/18 08:00 01/30/18 09:00 Temperature 97.6 F Pulse Rate 96 H 109 H 98 H Respiratory Rate 20 Blood Pressure 120/72 Pulse Oximetry 93 L 01/30/18 10:00 01/30/18 11:00 01/30/18 12:00 Temperature 98.0 F Pulse Rate 106 H 98 H 100 H Respiratory Rate 20 Blood Pressure 125/72 Pulse Oximetry 97 Intake & Output 01/29/18 01/30/18 01/30/18 18:59 06:59 18:59 Intake Total 360 / 360 1120 / 1120 900 / 900 Output Total 400 / 400 400 / 400 Balance -40 / -40 720 / 720 900 / 900 Weight 86 kg Intake: IV 0 / 0 1000 / 1000 900 / 900 NS Inj 1,000 ML @ 100 mls/hr IV 1000 / 1000 900 / 900 .SIG .Q10H MAL Rx#:[id number] Oral 360 / 360 120 / 120 Output: Urine 400 / 400 400 / 400 Stool 0 / 0 Assessment and Plan - Assessment (1) NSTEMI (non-ST elevated myocardial infarction) Code(s): I21.4 - Non-ST elevation (NSTEMI) myocardial infarction Status: Acute (2) CAD (coronary artery disease) Code(s): I25.10 - Atherosclerotic heart disease of [place] coronary artery without angina pectoris Status: Acute (3) Anemia Code(s): D64.9 - Anemia, unspecified Status: Acute (4) Anemia Code(s): D64.9 - Anemia, unspecified Status: Acute (5) Right-sided lacunar stroke Code(s): I63.9 - Cerebral infarction, unspecified Status: Acute (6) Left hemiparesis Code(s): G81.94 - Hemiplegia, unspecified affecting left nondominant side Status: Acute (7) Impaired mobility and activities of daily living Code(s): Z74.09 - Other reduced mobility Status: Acute (8) Recurrent falls while walking Code(s): R29.6 - Repeated falls Status: Acute (9) CHF (congestive heart failure) Code(s): I50.9 - Heart failure, unspecified Status: Chronic (10) Hypertension, essential Code(s): I10 - Essential (primary) hypertension Status: Chronic (11) Diabetes mellitus Code(s): E11.9 - Type 2 diabetes mellitus without complications Status: Chronic (12) Hyperlipidemia Code(s): E78.5 - Hyperlipidemia, unspecified Status: Acute - Plan 1.) CAD - severe 3 vessel cad, severe anemia too high risk for cabg per Dr Hernandez, risk of pci is high due to severe anemia with undiagnosed etiolgy with uncertainty of bleeding with ac and dapt; therefore rec referral to high risk center for eval for high risk cabg or pci ow if not a transfer candidate rec palliative care and hospice; case management and palliative care consult placed , d/w nursing and patient 2.) Anemia - anesthesia refused anesthesia as patient presented with nstemi, ccs class 4 angina is high risk for noncardiac procedure, therefore endoscopy not done; pci not done due to high risk for bleeding, multivessel cad, and indeterminate bleeding source 3.) patient considering hospice (9) CHF (congestive heart failure) Qualifiers: Heart failure type: systolic Heart failure chronicity: acute on chronic Qualified Code(s): I50.23 - Acute on chronic systolic (congestive) heart failure (11) Diabetes mellitus Qualifiers: Diabetes mellitus type: type 2 Diabetes mellitus [employer] insulin use: without care home use Diabetes mellitus complication status: without complication Qualified Code(s): E11.9 - Type 2 diabetes mellitus without complications (12) Hyperlipidemia Qualifiers: Hyperlipidemia type: mixed hyperlipidemia Qualified Code(s): E78.2 - Mixed hyperlipidemia
[2018-01-30] MEDS: Melatonin 5 MG Tablet PO SCH (22:12)
[2018-01-31] MEDS: Gabapentin 100 MG Capsule PO SCH ×5 (01:51→21:40)
[2018-01-31] MEDS: Pantoprazole Inj 40 MG Vial IV.PUSH SCH ×2 (05:22→14:49)
[2018-01-31] MEDS: Sod Chloride 0.9% Inj 1,000 ML IV.SIG SCH ×3 (05:43→23:22)
[2018-01-31] MEDS: Metoprolol Tartrate 25 MG Tablet PO SCH ×2 (08:59→20:54)
[2018-01-31] MEDS: Citalopram 20 MG Tablet PO SCH (09:00)
[2018-01-31] MEDS: Senna/Docusate Sodium 8.6/50 MG Tablet PO SCH ×3 (09:00→22:03)
[2018-01-31] MEDS: Sodium Chloride 1 GM Tablet PO SCH ×3 (09:01→18:03)
--- NOTE | 2018-01-31 12:11 | P.PN ---
Subjective Interval history: 82-year-old male who is alert and oriented with no current new complaints. His healthcare surrogate is at bedside. Mr. sol fell asleep nursing home through our visit and most of the time was spent discussing things with his surrogate. Physical Exam Vital signs: Vital Signs 01/30/18 12:00 01/30/18 13:00 01/30/18 14:00 Temperature Pulse Rate 100 H 117 H 103 H Respiratory Rate Blood Pressure Pulse Oximetry 01/30/18 15:00 01/30/18 15:25 01/30/18 17:00 Temperature 97.7 F Pulse Rate 102 H 99 H 106 H Respiratory Rate 20 Blood Pressure 122/70 Pulse Oximetry 98 01/30/18 17:58 01/30/18 19:00 01/30/18 20:00 Temperature 98.9 F Pulse Rate 106 H 117 H 116 H Respiratory Rate 20 Blood Pressure 127/80 Pulse Oximetry 99 01/30/18 21:00 01/30/18 22:00 01/30/18 23:00 Temperature 97.9 F Pulse Rate 114 H 118 H 95 H Respiratory Rate 16 Blood Pressure 126/68 Pulse Oximetry 98 01/31/18 00:00 01/31/18 01:00 01/31/18 02:00 Temperature Pulse Rate 96 H 110 H 95 H Respiratory Rate Blood Pressure Pulse Oximetry 01/31/18 03:00 01/31/18 04:00 01/31/18 05:00 Temperature 98.3 F Pulse Rate 95 H 110 H 110 H Respiratory Rate 25 H Blood Pressure 137/73 Pulse Oximetry 100 01/31/18 06:00 01/31/18 07:00 01/31/18 08:00 Temperature 97.8 F Pulse Rate 117 H 114 H 117 H Respiratory Rate 24 Blood Pressure 116/68 Pulse Oximetry 99 01/31/18 09:00 01/31/18 10:00 01/31/18 11:00 Temperature 97.7 F Pulse Rate 91 H 99 H 96 H Respiratory Rate 25 H Blood Pressure 116/59 L Pulse Oximetry 100 Intake & Output 01/30/18 01/31/18 01/31/18 18:59 06:59 18:59 Intake Total 1800 / 1800 1000 / 1000 Output Total 500 / 500 350 / 350 Balance 1300 / 1300 650 / 650 Weight 87 kg Intake: IV 1500 / 1500 1000 / 1000 NS Inj 1,000 ML @ 100 mls/hr IV 1500 / 1500 1000 / 1000 .SIG .Q10H MAL Rx#:[id number] Oral 300 / 300 Output: Urine 500 / 500 350 / 350 Other: Date of Last Bowel Movement 01/30/18 01/30/18 # Bowel Movements 1 Narrative: GENERAL: Alert and oriented 3, sleepy, weak appearing SKIN: Warm and dry. HEAD: Normocephalic. EYES: No scleral icterus. No injection or drainage. NECK: Supple, trachea midline. No JVD or lymphadenopathy. CARDIOVASCULAR: Irregularly irregular, 2/6 systolic ejection murmur, no gallops , or rubs. RESPIRATORY: Breath sounds equal bilaterally. No accessory muscle use. GASTROINTESTINAL: Abdomen soft, non-tender, nondistended. MUSCULOSKELETAL: No cyanosis, or edema. Results - Labs CBC & Chem 7: 01/30/18 03:08 01/30/18 03:08 Laboratory Results - last 24 hr 01/30/18 01/30/18 11:10 11:10 Troponin I 0.78 H* B-Natriuretic Peptide 943 H Assessment and Plan - Plan Non-STEMI Patient is not a candidate for anticoagulation, not a candidate for repeat CABG Patient was offered referral to [facility], but he declined, wanting to put his papers in order first Patient is meeting with his weight reduction specialist today I discussed the importance of determinations regarding CPR, intubation, feeding tube with his healthcare surrogate Previous cardiac catheterization showed occluded grafts, recent ejection fraction 35-40% Continue statins, continue aspirin and Plavix, metoprolol Continue to monitor hemoglobin Appreciate cardiology consult Hospice consult pending Nausea Possibly a part of his NSTEMI, treat symptomatically 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 h/o Dyslipidemia Continue atorvastatin h/o Depression Continue Celexa h/o Peripheral neuropathy Continue gabapentin DVT prophylaxis SCDs, chemoprophylaxis held due to GI bleed Discharge Planning Hospice consult pending
--- NOTE | 2018-01-31 13:44 | P.PNCA ---
Subjective Interval history: asleep in nad Physical Exam Vital signs: Vital Signs 01/30/18 14:00 01/30/18 15:00 01/30/18 15:25 Temperature 97.7 F Pulse Rate 103 H 102 H 99 H Respiratory Rate 20 Blood Pressure 122/70 Pulse Oximetry 98 01/30/18 17:00 01/30/18 17:58 01/30/18 19:00 Temperature 98.9 F Pulse Rate 106 H 106 H 117 H Respiratory Rate 20 Blood Pressure 127/80 Pulse Oximetry 99 01/30/18 20:00 01/30/18 21:00 01/30/18 22:00 Temperature Pulse Rate 116 H 114 H 118 H Respiratory Rate Blood Pressure Pulse Oximetry 01/30/18 23:00 01/31/18 00:00 01/31/18 01:00 Temperature 97.9 F Pulse Rate 95 H 96 H 110 H Respiratory Rate 16 Blood Pressure 126/68 Pulse Oximetry 98 01/31/18 02:00 01/31/18 03:00 01/31/18 04:00 Temperature 98.3 F Pulse Rate 95 H 95 H 110 H Respiratory Rate 25 H Blood Pressure 137/73 Pulse Oximetry 100 01/31/18 05:00 01/31/18 06:00 01/31/18 07:00 Temperature 97.8 F Pulse Rate 110 H 117 H 114 H Respiratory Rate 24 Blood Pressure 116/68 Pulse Oximetry 99 01/31/18 08:00 01/31/18 09:00 01/31/18 10:00 Temperature Pulse Rate 117 H 91 H 99 H Respiratory Rate Blood Pressure Pulse Oximetry 01/31/18 11:00 01/31/18 12:00 01/31/18 13:00 Temperature 97.7 F Pulse Rate 96 H 106 H 103 H Respiratory Rate 25 H Blood Pressure 116/59 L Pulse Oximetry 100 Intake & Output 01/30/18 01/31/18 01/31/18 18:59 06:59 18:59 Intake Total 1800 / 1800 1000 / 1000 Output Total 500 / 500 350 / 350 Balance 1300 / 1300 650 / 650 Weight 87 kg Intake: IV 1500 / 1500 1000 / 1000 NS Inj 1,000 ML @ 100 mls/hr IV 1500 / 1500 1000 / 1000 .SIG .Q10H MAL Rx#:[id number] Oral 300 / 300 Output: Urine 500 / 500 350 / 350 Other: Date of Last Bowel Movement 01/30/18 01/30/18 # Bowel Movements 1 Assessment and Plan - Assessment (1) NSTEMI (non-ST elevated myocardial infarction) Code(s): I21.4 - Non-ST elevation (NSTEMI) myocardial infarction Status: Acute (2) CAD (coronary artery disease) Code(s): I25.10 - Atherosclerotic heart disease of [place] coronary artery without angina pectoris Status: Acute (3) Anemia Code(s): D64.9 - Anemia, unspecified Status: Acute (4) Anemia Code(s): D64.9 - Anemia, unspecified Status: Acute (5) Right-sided lacunar stroke Code(s): I63.9 - Cerebral infarction, unspecified Status: Acute (6) Left hemiparesis Code(s): G81.94 - Hemiplegia, unspecified affecting left nondominant side Status: Acute (7) Impaired mobility and activities of daily living Code(s): Z74.09 - Other reduced mobility Status: Acute (8) Recurrent falls while walking Code(s): R29.6 - Repeated falls Status: Acute (9) CHF (congestive heart failure) Code(s): I50.9 - Heart failure, unspecified Status: Chronic (10) Hypertension, essential Code(s): I10 - Essential (primary) hypertension Status: Chronic (11) Diabetes mellitus Code(s): E11.9 - Type 2 diabetes mellitus without complications Status: Chronic (12) Hyperlipidemia Code(s): E78.5 - Hyperlipidemia, unspecified Status: Acute - Plan 1.) CAD - severe 3 vessel cad, severe anemia too high risk for cabg per Dr Hernandez, risk of pci is high due to severe anemia with undiagnosed etiolgy with uncertainty of bleeding with ac and dapt; therefore rec referral to high risk center for eval for high risk cabg or pci ow if not a transfer candidate rec palliative care and hospice; case management and palliative care consult placed , d/w nursing and patient 2.) Anemia - anesthesia refused anesthesia as patient presented with nstemi, ccs class 4 angina is high risk for noncardiac procedure, therefore endoscopy not done; pci not done due to high risk for bleeding, multivessel cad, and indeterminate bleeding source 3.) patient considering hospice, d/w surrogate, she states patient refused referral to [facility], i explained option exists if he or she change their mind (9) CHF (congestive heart failure) Qualifiers: Heart failure type: systolic Heart failure chronicity: acute on chronic Qualified Code(s): I50.23 - Acute on chronic systolic (congestive) heart failure (11) Diabetes mellitus Qualifiers: Diabetes mellitus type: type 2 Diabetes mellitus nursing home insulin use: without buttermilk drier 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
--- NOTE | 2018-01-31 14:49 | P.PNONC ---
Subjective Interval history: Afebrile Pt resting in bed with visitor at bedside Denies chest pain Reports some SOB No bleeding Objective Vital Signs/Intake & Output: Vital Signs 01/30/18 15:00 01/30/18 15:25 01/30/18 17:00 Temperature 97.7 F Pulse Rate 102 H 99 H 106 H Respiratory Rate 20 Blood Pressure 122/70 Pulse Oximetry 98 01/30/18 17:58 01/30/18 19:00 01/30/18 20:00 Temperature 98.9 F Pulse Rate 106 H 117 H 116 H Respiratory Rate 20 Blood Pressure 127/80 Pulse Oximetry 99 01/30/18 21:00 01/30/18 22:00 01/30/18 23:00 Temperature 97.9 F Pulse Rate 114 H 118 H 95 H Respiratory Rate 16 Blood Pressure 126/68 Pulse Oximetry 98 01/31/18 00:00 01/31/18 01:00 01/31/18 02:00 Temperature Pulse Rate 96 H 110 H 95 H Respiratory Rate Blood Pressure Pulse Oximetry 01/31/18 03:00 01/31/18 04:00 01/31/18 05:00 Temperature 98.3 F Pulse Rate 95 H 110 H 110 H Respiratory Rate 25 H Blood Pressure 137/73 Pulse Oximetry 100 01/31/18 06:00 01/31/18 07:00 01/31/18 08:00 Temperature 97.8 F Pulse Rate 117 H 114 H 117 H Respiratory Rate 24 Blood Pressure 116/68 Pulse Oximetry 99 01/31/18 09:00 01/31/18 10:00 01/31/18 11:00 Temperature 97.7 F Pulse Rate 91 H 99 H 96 H Respiratory Rate 25 H Blood Pressure 116/59 L Pulse Oximetry 100 01/31/18 12:00 01/31/18 13:00 01/31/18 14:00 Temperature Pulse Rate 106 H 103 H 112 H Respiratory Rate Blood Pressure Pulse Oximetry Intake & Output 01/30/18 01/31/18 01/31/18 18:59 06:59 18:59 Intake Total 1800 / 1800 1000 / 1000 Output Total 500 / 500 350 / 350 Balance 1300 / 1300 650 / 650 Weight 191 lb 12.835 oz Intake: IV 1500 / 1500 1000 / 1000 NS Inj 1,000 ML @ 100 mls/hr IV 1500 / 1500 1000 / 1000 .SIG .Q10H MAL Rx#:[id number] Oral 300 / 300 Output: Urine 500 / 500 350 / 350 Other: Date of Last Bowel Movement 01/30/18 01/30/18 # Bowel Movements 1 Result Diagrams: 01/30/18 03:08 01/30/18 03:08 Medications: Active Medications Generic Name Dose Route Start Last Admin Trade Name Freq PRN Reason Stop Dose Admin Aspirin 81 mg 01/27/18 09:00 01/31/18 09:00 Ecotrin PO Not Given DAILY [facility] Atorvastatin Calcium 40 mg 01/26/18 21:00 01/30/18 22:12 Lipitor PO Not Given HS [facility] Bisacodyl 10 mg 01/27/18 21:00 01/30/18 22:12 Dulcolax Ec PO Not Given HS [facility] Citalopram Hydrobromide 20 mg 01/26/18 09:00 01/31/18 09:00 Celexa PO Not Given DAILY [facility] Clopidogrel Bisulfate 75 mg 01/28/18 09:00 01/31/18 09:01 Plavix PO Not Given DAILY [facility] Gabapentin 200 mg 01/25/18 22:00 01/31/18 05:22 Neurontin PO Not Given Q8HR [facility] Sodium Chloride 1,000 mls @ 100 mls/hr 01/26/18 09:30 01/31/18 10:31 Ns Inj IV.SIG Not Given .Q10H [facility] Melatonin 5 mg 01/26/18 21:00 01/30/18 22:12 Melatonin PO Not Given HS [facility] Metoclopramide HCl 5 mg 01/25/18 21:24 01/29/18 15:35 Reglan Inj IV.PUSH 5 mg Q6HR PRN Administration NAUSEA OR VOMITING Protocol Metoprolol Tartrate 25 mg 01/28/18 21:00 01/31/18 08:59 Lopressor PO 25 mg BID [facility] Administration Morphine Sulfate 2 mg 01/25/18 23:24 01/28/18 17:52 Morphine Inj IV.PUSH 2 mg Q4H PRN Administration Acute Pain Nitroglycerin 0.4 mg 01/27/18 21:14 01/28/18 17:53 Nitrostat [address] SL 0.4 mg Q5M PRN Administration CHEST PAIN Ondansetron HCl 4 mg 01/26/18 02:02 01/28/18 15:53 Zofran Odt PO 4 mg Q6H PRN Administration NAUSEA OR VOMITING Pantoprazole Sodium 40 mg 01/26/18 03:00 01/31/18 05:22 Protonix Inj IV.PUSH Not Given Q12H MAL Senna/Docusate Sodium 1 tab 01/26/18 09:00 01/31/18 09:00 Sandra-Colace PO Not Given BID MAL Senna/Docusate Sodium 1 tab 01/27/18 09:00 01/31/18 09:01 Sandra-Colace PO Not Given BID MAL Sodium Chloride 2 ml 01/26/18 21:00 01/31/18 09:01 Ns Flush IV.FLUSH Not Given BID MAL Sodium Chloride 1 gm 01/27/18 09:00 01/31/18 09:01 Sodium Chloride PO Not Given TID MAL Objective Remarks: GENERAL: Elderly male, resting in bed. He is using some accessory muscles to breathe. Falls asleep frequently throughout exam. SKIN: Warm and dry. HEAD: Normocephalic. EYES: No scleral icterus. No injection or drainage. NECK: Supple, trachea midline. No JVD or lymphadenopathy. CARDIOVASCULAR: Regular rate and rhythm without murmurs. RESPIRATORY: Clear but diminished anteriorly. Some accessory muscle use with breathing. GASTROINTESTINAL: Abdomen soft, non-tender, nondistended. EXTREMITIES: No cyanosis. MUSCULOSKELETAL: Generalized weakness. NEUROLOGICAL: Somewhat lethargic. Follows commands. No obvious focal deficit. Assessment/Plan (1) Anemia Code(s): D64.9 - Anemia, unspecified Status: Acute - Plan 82 y/o male admitted with anemia; with competing needs as he has anemia. Cardiology following; pt a candidate for CABG, however with anemia he would not be a candidate for anticoagulation. GI consulted for possible endoscopy to r/o GI bleed however cardiology not able to clear him for sedation. 1. Pt considering hospice vs transfer to tertiary center. His POA reports they are awaiting a visit from his health care attorney today at 4pm to sign some paperwork. Pt reports he wants to get affairs in order prior to any decisions. 2. For now we will have to continue supportive care. Check H/H today. Transfuse if hgb less than 8.0 with increased cardiopulmonary demands. 3. Continue supportive care. (1) Anemia Qualifiers: Anemia type: other cause
[2018-01-31 15:17] LABS: Hematocrit 28.5 % (39.0-51.0); Hemoglobin 8.8 gm/dL (13.0-17.0)
[2018-01-31] MEDS: Melatonin 5 MG Tablet PO SCH (22:03)
[2018-01-31] MEDS ORDERED: Metoprolol Inj 5 MG/5 ML Vial IV.PUSH ONE (22:59)
[2018-02-01] MEDS: Pantoprazole Inj 40 MG Vial IV.PUSH SCH (03:17)
[2018-02-01 06:18] LABS: Hematocrit 29.5 % (39.0-51.0); Hemoglobin 9.2 gm/dL (13.0-17.0); Mean Corpuscular HGB Conc 31.2 % (32.0-36.0); Mean Corpuscular Hemoglobin 28.9 pg (27.0-34.0); Mean Corpuscular Volume 92.5 fL (80.0-100.0); Mean Platelet Volume 10.5 fL (7.0-11.0); Platelet Count 771 th/mm3 (150-450); Red Blood Count 3.19 mil/mm3 (4.50-5.90); Red Cell Distribution Width 19.4 % (11.6-17.2); White Blood Count 45.8 th/mm3 (4.0-11.0)
[2018-02-01 06:41] LABS: Albumin 3.4 g/dL (3.4-5.0); Anion Gap 16 meq/L (5-15); Blood Urea Nitrogen 65 mg/dL (7-18); Calcium 8.2 mg/dL (8.5-10.1); Carbon Dioxide 13.8 meq/L (21.0-32.0); Chloride 112 meq/L (98-107); Glucose,Random 122 mg/dL (74-106); Potassium 5.3 meq/L (3.5-5.1); Sodium 142 meq/L (136-145)
[2018-02-01 06:48] LABS: Alanine Aminotransferase 2567 U/L (12-78); Alkaline Phosphatase 242 U/L (45-117); Aspartate Aminotransferase 1136 U/L (15-37); Total Protein 6.1 g/dL (6.4-8.2)
[2018-02-01] MEDS ORDERED: Digoxin Inj 500 MCG/2 ML Ampul IV.PUSH ONE (08:45)
[2018-02-01] MEDS ORDERED: Metoprolol Inj 5 MG/5 ML Vial IV.PUSH SCH (09:00)
[2018-02-01] MEDS: Sod Chloride 0.9% Inj 1,000 ML IV.SIG SCH (09:07)
[2018-02-01] MEDS: Gabapentin 100 MG Capsule PO SCH ×2 (09:09→13:47)
[2018-02-01] MEDS: Citalopram 20 MG Tablet PO SCH (09:14)
[2018-02-01] MEDS: Senna/Docusate Sodium 8.6/50 MG Tablet PO SCH (09:14)
[2018-02-01] MEDS: Sodium Chloride 1 GM Tablet PO SCH ×2 (09:15→13:47)
--- NOTE | 2018-02-01 09:52 | XR ---
EXAM DATE: 02/01/2018 9:43 AM EDT AGE/SEX: 82 years / Male INDICATIONS: Very short of breath, weakness, cardiac disease CLINICAL DATA: This is the patient's subsequent encounter. Patient reports that signs and symptoms h ave been present for 4 - 6 days and indicates a pain score of Nonresponsive. MEDICAL/SURGICAL HISTORY: Cardiovascular disease. Hypertension. [place] CABG. [place] [facility] [place]. . FINDINGS: Small to moderate-sized bilateral pleural effusions with associated airspace disease in the lower charline g zones. Cardiac silhouette is enlarged with indistinct central pulmonary vascularity. Remainder of t he exam is unchanged. CONCLUSION: 1. Cardiomegaly with pulmonary vascular congestion. 2. Small to moderate bilateral pleural effusions with associated lower lobe airspace disease. Electronically signed by: Maikel Smart MD 02/01/2018 9:51 AM EDT
[2018-02-01] MEDS ORDERED: Morphine Inj 4 MG/ML Vial IV.PUSH PRN (10:37)
--- NOTE | 2018-02-01 11:13 | P.PNPAL ---
Reason for Visit Reason for visit: a. To assist with evaluation and management of symptoms including:fatigued, tachypnea, tachycardia. b. To assist medical decision maker(s) with: better understanding of current medical conditions; weighing benefits/burdens of medical treatment options; making medical treatment decisions. Subjective Subjective/Interval History: Patient compare to my last visit has declined dramatacially. PPS level is now 10%. Pt is not awake, and minimally responsive, open eyes briefly then fell asleep. Patient has not received any morphine since 01/25/2018. No recent opiate used. Pt is tachypneic, tachycardic, has elevated wt count. Pt extremeity is cool. There is grimacing. Chest X ray show cardiomegaly with pulmonary vascular congestion, ....moderate bilateral pleural effusion. Family/Friend Interactions: Pt's friend and recently designated health care surrogate Nancy Santa at bedside. Review current pt's clinical sitiuation. Discussed goals of care again, and noted that pt had refused further aggressive measures and comfort measures only. Friend was hoping he can sign some papers, but I review with her that pt had dramatically decline and clinically deteriorating. She is amenable to comfort measures only and transfer to care center. Advance Directives Health Care Surrogate: Copy in medical record Objective Vital Signs: Vital Signs 01/31/18 11:00 01/31/18 12:00 01/31/18 13:00 Temperature 97.7 F Pulse Rate 96 H 106 H 103 H Respiratory Rate 25 H Blood Pressure 116/59 L Pulse Oximetry 100 01/31/18 14:00 01/31/18 15:00 01/31/18 16:00 Temperature 98.2 F Pulse Rate 112 H 115 H 107 H Respiratory Rate 25 H Blood Pressure 91/65 L Pulse Oximetry 98 01/31/18 17:00 01/31/18 18:00 01/31/18 19:00 Temperature 98.4 F Pulse Rate 98 H 109 H 118 H Respiratory Rate 20 Blood Pressure 118/78 Pulse Oximetry 99 01/31/18 20:00 01/31/18 21:00 01/31/18 21:42 Temperature Pulse Rate 122 H 121 H Respiratory Rate Blood Pressure Pulse Oximetry 99 01/31/18 22:00 01/31/18 23:00 02/01/18 00:00 Temperature 99.1 F Pulse Rate 72 142 H 130 H Respiratory Rate 25 H Blood Pressure 109/66 Pulse Oximetry 95 02/01/18 01:00 02/01/18 02:00 02/01/18 03:00 Temperature 98.9 F Pulse Rate 119 H 146 H 126 H Respiratory Rate 25 H Blood Pressure 122/78 Pulse Oximetry 99 02/01/18 03:31 02/01/18 05:00 02/01/18 06:00 Temperature Pulse Rate 121 H 136 H 137 H Respiratory Rate Blood Pressure Pulse Oximetry 02/01/18 07:00 02/01/18 08:00 02/01/18 09:00 Temperature 99.9 F H Pulse Rate 131 H 122 H 130 H Respiratory Rate 27 H Blood Pressure 142/75 H Pulse Oximetry 97 02/01/18 10:00 Temperature Pulse Rate 117 H Respiratory Rate Blood Pressure Pulse Oximetry Intake & Output 01/31/18 02/01/18 02/01/18 18:59 06:59 18:59 Intake Total 1240 / 1240 1000 / 1000 Output Total 200 / 200 Balance 1240 / 1240 -200 / -200 1000 / 1000 Intake: IV 1000 / 1000 1000 / 1000 NS Inj 1,000 ML @ 100 mls/hr IV 1000 / 1000 1000 / 1000 .SIG .Q10H MAL Rx#:[id number] Oral 240 / 240 Output: Urine 200 / 200 Other: # Incontinent Voids 3 Date of Last Bowel Movement 01/30/18 01/30/18 01/30/18 # Bowel Movements 0 Physical Exam: CONSTITUTIONAL/GENERAL: This is a frail 82 year old, minamally respnosve, obtunded could not stay awake, some grimacing TUBES/LINES/DRAINS: NC, avila. SKIN: No jaundice, rashes, or lesions. Ecchymoses on upper extremities. HEAD: Atraumatic. Normocephalic. EYES: Pupils equal and round and reactive. ENT: Hearing grossly normal. Nose without bleeding or purulent drainage. NECK: Trachea midline. Supple, nontender. No palpable thyroid enlargement or nodularity. CARDIOVASCULAR: tachycardic. could not hear m/r. RESPIRATORY/CHEST: Symmetric, unlabored respirations. Clear to auscultation. Breath sounds equal bilaterally. GASTROINTESTINAL: Abdomen soft, non-tender, nondistended. Abdominal breathing noted GENITOURINARY: Without palpable bladder distension. Avila catheter in place. MUSCULOSKELETAL: Extremities without clubbing, cyanosis, or edema. Ext is cool. LYMPHATICS: No palpable cervical or supraclavicular adenopathy. NEUROLOGICAL: minimally responsive now. PSYCHIATRIC: could not examine due to level of responsiveness. Diagnostic Tests Laboratory: Laboratory Results - last 72 hr 01/29/18 01/30/18 01/30/18 12:06 03:08 03:08 WBC 30.5 H RBC 2.95 L Hgb 8.5 L Hct 26.0 L MCV 88.1 MCH 28.7 MCHC 32.6 RDW 18.1 H Plt Count 646 H D MPV 10.7 Prelim Diff (Auto) Slide review pending Neut % (Auto) 89.3 H Lymph % (Auto) 5.6 L Yancey % (Auto) 4.7 Eos % (Auto) 0.1 Baso % (Auto) 0.3 Neut # (Auto) 27.3 H Lymph # (Auto) 1.7 Yancey # (Auto) 1.4 H Eos # (Auto) 0.0 Baso # (Auto) 0.1 WBC Differential Manual diff final Seg Neuts % (Manual) 81 H Band Neuts % (Manual) 8 H Lymphocytes % (Manual) 6 L Monocytes % (Manual) 3 Myelocytes % (Man) 2 H Abs Neuts (Manual) 27.8 H Nucleated RBCs/100 WBC 4 H Differential Comment . Toxic Granulation 2+ H Platelet Estimate High H Platelet Morphology Normal Basophilic Stippling Faint H Ovalocytes 1+ H Ajay Cells 1+ H Acanthocytes (Spur) 1+ H Keratocytes Occ H Sodium 137 Potassium 4.5 Chloride 106 Carbon Dioxide 19.1 L Anion Gap 12 BUN 55 H Creatinine 1.54 H Estimated GFR 44 L Random Glucose 114 H Calcium 8.2 L Total Bilirubin 1.5 H AST 2536 H ALT 2822 H Alkaline Phosphatase 124 H Troponin I B-Natriuretic Peptide Total Protein 6.1 L Total Protein (PEP) 6.2 L Albumin 3.2 L Albumin (PEP) 3.92 Albumin/Globulin Ratio 1.72 Oibge-3-Nazlzjeou 0.30 H Bclei-9-Ojpfwtide 0.72 Beta Globulins 0.63 Gamma Globulins 0.62 Vitamin B12 1388 H Folate 7.0 01/30/18 01/30/18 01/31/18 11:10 11:10 14:35 WBC RBC Hgb 8.8 L Hct 28.5 L MCV MCH MCHC RDW Plt Count MPV Prelim Diff (Auto) Neut % (Auto) Lymph % (Auto) Yancey % (Auto) Eos % (Auto) Baso % (Auto) Neut # (Auto) Lymph # (Auto) Yancey # (Auto) Eos # (Auto) Baso # (Auto) WBC Differential Seg Neuts % (Manual) Band Neuts % (Manual) Lymphocytes % (Manual) Monocytes % (Manual) Myelocytes % (Man) Abs Neuts (Manual) Nucleated RBCs/100 WBC Differential Comment Toxic Granulation Platelet Estimate Platelet Morphology Basophilic Stippling Ovalocytes Ajay Cells Acanthocytes (Spur) Keratocytes Sodium Potassium Chloride Carbon Dioxide Anion Gap BUN Creatinine Estimated GFR Random Glucose Calcium Total Bilirubin AST ALT Alkaline Phosphatase Troponin I 0.78 H* B-Natriuretic Peptide 943 H Total Protein Total Protein (PEP) Albumin Albumin (PEP) Albumin/Globulin Ratio Lqjxy-0-Pysmzojts Fsxpk-6-Frgeqgarj Beta Globulins Gamma Globulins Vitamin B12 Folate 02/01/18 02/01/18 05:13 05:13 WBC 45.8 H RBC 3.19 L Hgb 9.2 L Hct 29.5 L MCV 92.5 D MCH 28.9 MCHC 31.2 L RDW 19.4 H Plt Count 771 H MPV 10.5 Prelim Diff (Auto) Neut % (Auto) Lymph % (Auto) Yancey % (Auto) Eos % (Auto) Baso % (Auto) Neut # (Auto) Lymph # (Auto) Yancey # (Auto) Eos # (Auto) Baso # (Auto) WBC Differential Seg Neuts % (Manual) Band Neuts % (Manual) Lymphocytes % (Manual) Monocytes % (Manual) Myelocytes % (Man) Abs Neuts (Manual) Nucleated RBCs/100 WBC Differential Comment Toxic Granulation Platelet Estimate Platelet Morphology Basophilic Stippling Ovalocytes Ajay Cells Acanthocytes (Spur) Keratocytes Sodium 142 Potassium 5.3 H Chloride 112 H Carbon Dioxide 13.8 L Anion Gap 16 H BUN 65 H Creatinine 1.88 H Estimated GFR Random Glucose 122 H Calcium 8.2 L Total Bilirubin 3.3 H AST 1136 H ALT 2567 H Alkaline Phosphatase 242 H Troponin I B-Natriuretic Peptide Total Protein 6.1 L Total Protein (PEP) Albumin 3.4 Albumin (PEP) Albumin/Globulin Ratio Fgipn-5-Vciogmvqe Iyqhk-2-Bzibriwlw Beta Globulins Gamma Globulins Vitamin B12 Folate Result Diagrams: 02/01/18 05:13 02/01/18 05:13 Imaging: [facility] Impressions Carotid Doppler Study 01/26/18 00:00 CONCLUSION: Plaque seen at the carotid bulb regions with elevated peak systolic velocity and elevated ICA/CCA ratios concerning for significant stenoses at the carotid bulb regions. The plaque on the right side appears irregular. Chest X-Ray 02/01/18 00:00 CONCLUSION: 1. Cardiomegaly with pulmonary vascular congestion. 2. Small to moderate bilateral pleural effusions with associated lower lobe airspace disease. Assessment and Plan - Disease Oriented Problem List (1) GI bleed Comment: not a candidate for endoscopy per GI. (2) CAD (coronary artery disease) Comment: s/p cabg x 3. All are now occulded again. Not a surgical candidate. (3) Left hemiparesis (4) CHF (congestive heart failure) (5) Hypertension, essential (6) Hyperlipidemia (7) Tachypnea (8) Palpitation - Symptom Scale (1) Fatigue 0-10 Scale: Unable to quantify (2) Palpitation 0-10 Scale: Unable to quantify (3) Tachypnea 0-10 Scale: Unable to quantify Pertinent Non-Medical Issues: Psychosocial:, No children, No relatives. Served in the [employer]. Originally from [place]. Drove [employer] in the past. [facility] Basically wheelchair bound. Can stand with parallel bars with asssitance. he dos drag that left foot. Spiritual:unknown Legal:health care surrogate completed (nancy Santa). community DNR completed Ethical issues impacting care: none. Important Contacts: Health Care Surrogate/ Friend Nancy Santa. Prognosis: Pt has CAD, all 3 stents has reocculde. Pt not a surgical candidiate. Condition complicated by gi bleed, could not anticoagulat. Pt also now hypotensive, tachpneic, tachycardic, cool ext. PPs 10. Prognosis is poor. Code Status: No Code DNR Plan: == capacity. No longer capacitated to make medical decision and given clinical situation, will not regain capacity at this point. == Health Care Surrogate: Nancy Ambrosio. == Goals of care: Pt when awake and had capacity to make medical decisons adamantly decline further aggressive treatment, change code status to DNR, and amenable to hospice consult. He had endorse about going home and peaceful . This was convey to health care surrogate. Pt's friend and recently designated health care surrogate Nancy Santa at bedside. Review current pt's clinical sitiuation. Discussed goals of care again, and noted that pt had refused further aggressive measures and comfort measures only. Friend was hoping he can sign some papers, but I review with her that pt had dramatically decline and clinically deteriorating. She is amenable to comfort measures only and transfer to hospice care center. Hospice is reconsulted. == Code: DNR: community DNR completed , health care surrogate completed symptom: fatigued- cardiac related and gi bleed. tachypnea/palpatation- clinically cardiomegaly with pulmonary vascular congestion. bilateral pleural effusion. Tachypneic, tachycardic. Morphine and ativan available to treat symptom of dyspnea and anxiety associated with tachypnea and palpitation. Pt is imminent. == palliative care will follow as clinical conditions evolves. Pt and Health care surrogate know Palliative care will not be available tomorrow or the weekend. == D/w customer security clerk.
--- NOTE | 2018-02-01 11:58 | P.DS ---
Date of admission: 01/25/18 21:24 Primary care physician: [facility] Brief History from admission: 82-year-old gentleman presents complaining of left-sided substernal chest pressure 2 episodes. First episode reported only happened around 1800 today. Patient was given 2 nitroglycerin with relief of the symptoms. Patient began having a separate episode around 1900 was given 3 nitroglycerin and EMS was called. Patient received 3 aspirins by EMS in route. Patient denies any pain currently. Patient reports feeling tingling sensation throughout his chest when this was going on. Denies any shortness of breath, nausea, vomiting, dizziness, headache, new weakness,. Patient states he has never had a stress test. In the emergency department he was found to have elevated troponin, however also melanotic stool with severe anemia. The cardiology on-call was consulted with recommendation of conservative management due to acute GI bleed. While in the emergency department he also developed atrial fibrillation with rapid ventricular response at 150s. He was treated with metoprolol IV with improvement of the heart rate to 100 and is now admitted to ICU. DS: Summary Hospital Course: 82-year-old male who was admitted with GI bleed, anemia, and elevated troponin level with intermittent chest pain. Initially conservative management was recommended secondary to active GI bleed. He was not a candidate for repeat CABG due to health conditions, he was also not a candidate for stenting due to occlusion of present stents. It is possible that [facility] could be of assistance but that would require a transfer and no guarantees. He has had some long discussions with his healthcare surrogate and initially declined treatment in order to give him time to think about it. After discussions he has decided that he would prefer conservative, nonaggressive management and requested hospice consult. Overnight he has had some tachycardia and early signs of infection. He has decided today that he would like to transfer to the hospice care center rather than pursue an aggressive treatment here. I have been contacted for discharge order, and that discharge order was placed. - Time Spent with Patient Total time spent providing and/or coordinating discharge services: Exam Vital signs: Vital Signs 01/31/18 12:00 01/31/18 13:00 01/31/18 14:00 Temperature Pulse Rate 106 H 103 H 112 H Respiratory Rate Blood Pressure Pulse Oximetry 01/31/18 15:00 01/31/18 16:00 01/31/18 17:00 Temperature 98.2 F Pulse Rate 115 H 107 H 98 H Respiratory Rate 25 H Blood Pressure 91/65 L Pulse Oximetry 98 01/31/18 18:00 01/31/18 19:00 01/31/18 20:00 Temperature 98.4 F Pulse Rate 109 H 118 H 122 H Respiratory Rate 20 Blood Pressure 118/78 Pulse Oximetry 99 01/31/18 21:00 01/31/18 21:42 01/31/18 22:00 Temperature Pulse Rate 121 H 72 Respiratory Rate Blood Pressure Pulse Oximetry 99 01/31/18 23:00 02/01/18 00:00 02/01/18 01:00 Temperature 99.1 F Pulse Rate 142 H 130 H 119 H Respiratory Rate 25 H Blood Pressure 109/66 Pulse Oximetry 95 02/01/18 02:00 02/01/18 03:00 02/01/18 03:31 Temperature 98.9 F Pulse Rate 146 H 126 H 121 H Respiratory Rate 25 H Blood Pressure 122/78 Pulse Oximetry 99 02/01/18 05:00 02/01/18 06:00 02/01/18 07:00 Temperature 99.9 F H Pulse Rate 136 H 137 H 131 H Respiratory Rate 27 H Blood Pressure 142/75 H Pulse Oximetry 97 02/01/18 08:00 02/01/18 09:00 02/01/18 10:00 Temperature Pulse Rate 122 H 130 H 117 H Respiratory Rate Blood Pressure Pulse Oximetry 02/01/18 11:00 Temperature 100.4 F H Pulse Rate 118 H Respiratory Rate 25 H Blood Pressure 90/58 L Pulse Oximetry 96 Intake & Output 01/31/18 02/01/18 02/01/18 18:59 06:59 18:59 Intake Total 1240 / 1240 1100 / 1100 Output Total 200 / 200 Balance 1240 / 1240 -200 / -200 1100 / 1100 Intake: IV 1000 / 1000 1100 / 1100 NS Inj 1,000 ML @ 100 mls/hr IV 1000 / 1000 1000 / 1000 .SIG .Q10H MAL Rx#:[id number] Rocephin Inj 1,000 MG In NS Inj 100 / 100 100 ML @ 200 mls/hr IV.SIG Q24H MAL Rx#:[id number] Oral 240 / 240 Output: Urine 200 / 200 Other: # Incontinent Voids 3 Date of Last Bowel Movement 01/30/18 01/30/18 01/30/18 # Bowel Movements 0 Results Procedures completed during hospitalization: none Labs on day of discharge: Labs from last 24 hours 02/01/18 02/01/18 01/31/18 05:13 05:13 14:35 WBC 45.8 H RBC 3.19 L Hgb 9.2 L 8.8 L Hct 29.5 L 28.5 L MCV 92.5 D MCH 28.9 MCHC 31.2 L RDW 19.4 H Plt Count 771 H MPV 10.5 Sodium 142 Potassium 5.3 H Chloride 112 H Carbon Dioxide 13.8 L Anion Gap 16 H BUN 65 H Creatinine 1.88 H Random Glucose 122 H Calcium 8.2 L Total Bilirubin 3.3 H AST 1136 H ALT 2567 H Alkaline Phosphatase 242 H Total Protein 6.1 L Albumin 3.4 Albumin (PEP) Albumin/Globulin Ratio Znifa-2-Ackrjwfdk Bynxm-9-Dvcohewvm Beta Globulins Gamma Globulins PEP Pathologist Comment 01/29/18 12:06 WBC RBC Hgb Hct MCV MCH MCHC RDW Plt Count MPV Sodium Potassium Chloride Carbon Dioxide Anion Gap BUN Creatinine Random Glucose Calcium Total Bilirubin AST ALT Alkaline Phosphatase Total Protein Albumin Albumin (PEP) 3.92 Albumin/Globulin Ratio 1.72 Bwusi-1-Lmntydqss 0.30 H Tcrcy-7-Iakyzroko 0.72 Beta Globulins 0.63 Gamma Globulins 0.62 PEP Pathologist Comment - Impressions ITS Impressions Carotid Doppler Study 01/26/18 00:00 CONCLUSION: Plaque seen at the carotid bulb regions with elevated peak systolic velocity and elevated ICA/CCA ratios concerning for significant stenoses at the carotid bulb regions. The plaque on the right side appears irregular. Chest X-Ray 02/01/18 00:00 CONCLUSION: 1. Cardiomegaly with pulmonary vascular congestion. 2. Small to moderate bilateral pleural effusions with associated lower lobe airspace disease. Discharge Plan - Discharge Disposition Patient Disposition: 51 Hospice/Med Facility - Discharge Condition Condition: Fair - Discharge Order Discharge Orders: Discharge Order (Routine); Ordered 02/01/18 Ordered By: Speedy Alegria - Physicians Team Primary Care Provider: Jackelyn Felder Clinical Attending Provider: Speedy Alegria Other Providers: Javy Mcdonald MD ; Mendez Ray MD ; Loly Hernandez MD ; [facility] ; Guanaco Patel MD ; Juan Jose Ware MD
--- NOTE | 2018-02-01 12:39 | P.PNCA ---
Subjective Interval history: asleep in nad Physical Exam Vital signs: Vital Signs 01/31/18 13:00 01/31/18 14:00 01/31/18 15:00 Temperature 98.2 F Pulse Rate 103 H 112 H 115 H Respiratory Rate 25 H Blood Pressure 91/65 L Pulse Oximetry 98 01/31/18 16:00 01/31/18 17:00 01/31/18 18:00 Temperature Pulse Rate 107 H 98 H 109 H Respiratory Rate Blood Pressure Pulse Oximetry 01/31/18 19:00 01/31/18 20:00 01/31/18 21:00 Temperature 98.4 F Pulse Rate 118 H 122 H 121 H Respiratory Rate 20 Blood Pressure 118/78 Pulse Oximetry 99 01/31/18 21:42 01/31/18 22:00 01/31/18 23:00 Temperature 99.1 F Pulse Rate 72 142 H Respiratory Rate 25 H Blood Pressure 109/66 Pulse Oximetry 99 95 02/01/18 00:00 02/01/18 01:00 02/01/18 02:00 Temperature Pulse Rate 130 H 119 H 146 H Respiratory Rate Blood Pressure Pulse Oximetry 02/01/18 03:00 02/01/18 03:31 02/01/18 05:00 Temperature 98.9 F Pulse Rate 126 H 121 H 136 H Respiratory Rate 25 H Blood Pressure 122/78 Pulse Oximetry 99 02/01/18 06:00 02/01/18 07:00 02/01/18 08:00 Temperature 99.9 F H Pulse Rate 137 H 131 H 122 H Respiratory Rate 27 H Blood Pressure 142/75 H Pulse Oximetry 97 02/01/18 09:00 02/01/18 10:00 02/01/18 11:00 Temperature 100.4 F H Pulse Rate 130 H 117 H 118 H Respiratory Rate 25 H Blood Pressure 90/58 L Pulse Oximetry 96 02/01/18 12:00 Temperature Pulse Rate 133 H Respiratory Rate Blood Pressure Pulse Oximetry Intake & Output 01/31/18 02/01/18 02/01/18 18:59 06:59 18:59 Intake Total 1240 / 1240 1100 / 1100 Output Total 200 / 200 Balance 1240 / 1240 -200 / -200 1100 / 1100 Intake: IV 1000 / 1000 1100 / 1100 NS Inj 1,000 ML @ 100 mls/hr IV 1000 / 1000 1000 / 1000 .SIG .Q10H MAL Rx#:[id number] Rocephin Inj 1,000 MG In NS Inj 100 / 100 100 ML @ 200 mls/hr IV.SIG Q24H MAL Rx#:[id number] Oral 240 / 240 Output: Urine 200 / 200 Other: # Incontinent Voids 3 Date of Last Bowel Movement 01/30/18 01/30/18 01/30/18 # Bowel Movements 0 Assessment and Plan - Assessment (1) NSTEMI (non-ST elevated myocardial infarction) Code(s): I21.4 - Non-ST elevation (NSTEMI) myocardial infarction Status: Acute (2) CAD (coronary artery disease) Code(s): I25.10 - Atherosclerotic heart disease of [place] coronary artery without angina pectoris Status: Acute (3) Anemia Code(s): D64.9 - Anemia, unspecified Status: Chronic (4) Anemia Code(s): D64.9 - Anemia, unspecified Status: Acute (5) Right-sided lacunar stroke Code(s): I63.9 - Cerebral infarction, unspecified Status: Acute (6) Left hemiparesis Code(s): G81.94 - Hemiplegia, unspecified affecting left nondominant side Status: Acute (7) Impaired mobility and activities of daily living Code(s): Z74.09 - Other reduced mobility Status: Acute (8) Recurrent falls while walking Code(s): R29.6 - Repeated falls Status: Acute (9) CHF (congestive heart failure) Code(s): I50.9 - Heart failure, unspecified Status: Chronic (10) Hypertension, essential Code(s): I10 - Essential (primary) hypertension Status: Chronic (11) Diabetes mellitus Code(s): E11.9 - Type 2 diabetes mellitus without complications Status: Chronic (12) Hyperlipidemia Code(s): E78.5 - Hyperlipidemia, unspecified Status: Acute - Plan 1.) CAD - severe 3 vessel cad, severe anemia too high risk for cabg per Dr Hernandez, risk of pci is high due to severe anemia with undiagnosed etiolgy with uncertainty of bleeding with ac and dapt; therefore rec referral to high risk center for eval for high risk cabg or pci ow if not a transfer candidate rec palliative care and hospice; case management and palliative care consult placed , d/w nursing and patient 2.) Anemia - anesthesia refused anesthesia as patient presented with nstemi, ccs class 4 angina is high risk for noncardiac procedure, therefore endoscopy not done; pci not done due to high risk for bleeding, multivessel cad, and indeterminate bleeding source 3.) patient going to hospice, patient refused referral to [facility], i explained option exists if he or she change their mind (4) Anemia Qualifiers: Anemia type: other cause (9) CHF (congestive heart failure) Qualifiers: Heart failure type: systolic Heart failure chronicity: acute on chronic Qualified Code(s): I50.23 - Acute on chronic systolic (congestive) heart failure (11) Diabetes mellitus Qualifiers: Diabetes mellitus type: type 2 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
== END 2018-02-01 14:25 | disposition hospice, inpatient (51) ==
LOC: NEPC 19:38 → NEDA 21:24 → NEDH 01-26 09:14 → HCVI 01-26 12:41 → HCPC 01-27 21:07
PROVIDERS: ADMIT Family Medicine; ATTEND Family Medicine
DX: I69.354 Hemiplegia and hemiparesis following cerebral infarction affecting left non-dominant side; Z79.82 Long term (current) use of aspirin; F17.210 Nicotine dependence, cigarettes, uncomplicated; R26.9 Unspecified abnormalities of gait and mobility; R00.0 Tachycardia, unspecified; Z51.5 Encounter for palliative care; E87.6 Hypokalemia; Z87.11 Personal history of peptic ulcer disease; I42.9 Cardiomyopathy, unspecified; I48.91 Unspecified atrial fibrillation; R06.82 Tachypnea, not elsewhere classified; F32.9 Major depressive disorder, single episode, unspecified; I25.719 Atherosclerosis of autologous vein coronary artery bypass graft(s) with unspecified angina pectoris; I11.0 Hypertensive heart disease with heart failure; Z66 Do not resuscitate; R29.6 Repeated falls; I25.2 Old myocardial infarction; Z99.3 Dependence on wheelchair; K92.2 Gastrointestinal hemorrhage, unspecified; E78.2 Mixed hyperlipidemia; E11.42 Type 2 diabetes mellitus with diabetic polyneuropathy; D64.9 Anemia, unspecified; I21.4 Non-ST elevation (NSTEMI) myocardial infarction; Z85.828 Personal history of other malignant neoplasm of skin; I25.119 Atherosclerotic heart disease of native coronary artery with unspecified angina pectoris; Z79.02 Long term (current) use of antithrombotics/antiplatelets; I50.23 Acute on chronic systolic (congestive) heart failure